=== PATIENT | female | born 1950 | race Caucasian/White ===

== ENCOUNTER 2017-08-28 06:49 | Day surgery (SDC) | payer MEDICARE, BC ==
[2017-08-27 12:42] VITALS: BMI 22.6
[2017-08-28 07:57] LABS: #Basophils 0.1 thou/uL (0.0-0.2); #Eosinphils 0.1 thou/uL (0.0-0.7); #Lymphocytes 1.3 thou/uL (1.20-3.40); #Monocytes 0.5 thou/uL (0.11-0.59); #Neutrophils 10.4 thou/uL (1.40-6.50); %Basophils 0.5 % (0.0-1.0); %Lymphocytes 10.3 % (21.0-51.0); %Monocytes 4.4 % (0.0-10.0); Hematocrit 28.1 % (36.0-47.0); White Blood Cell (WBC) Count 12.4 thou/uL (4.8-10.8)
[2017-08-28 08:10] LABS: Anion Gap 18 mmol/L (10-20); BUN (Urea Nitrogen) 54 mg/dL (9.8-20.1); Calc. Creatinine Clearance 5 mL/min (70-130); Calcium 9.6 mg/dL (7.8-10.44); Carbon Dioxide 29 mmol/L (23-31); Chloride 92 mmol/L (98-107); Estimated GFR-MDRD 4
[2017-08-28] MEDS ORDERED: Heparin 10,000 UNITS/1 ML VIAL ONE (08:35)
[2017-08-28] MEDS ORDERED: Bupivacaine/Epinephrine 0.25% 30 ML VIAL ONE (08:35)
[2017-08-28] MEDS ORDERED: Midazolam HCl 2 mg/2 ml Vial ONE ×2 (08:41)
[2017-08-28] MEDS ORDERED: Fentanyl 100 MCG/2 ML VIAL ONE (08:42)
[2017-08-28] MEDS ORDERED: Clindamycin/D5W 900 mg/50 ml Premix Bag ONE (08:51)
[2017-08-28] MEDS ORDERED: Levofloxacin 500 mg/D5W 100 ml Premix Bag ONE (08:51)
[2017-08-28] MEDS ORDERED: PHENYLEPHRINE-NS 100 MCG/ML 10 ML SYRINGE ONE (14:21)
[2017-08-28] MEDS ORDERED: Propofol 200 MG/20 ML VIAL ONE (14:21)
[2017-08-28] MEDS ORDERED: ePHEDrine/0.9% NaCl/PF SYRINGE 50 mg/10 ml ONE (14:21)
--- NOTE | 2017-08-30 12:25 | PDOC.OP ---
Operative Note - Operative Note Operative Note: PROCEDURE: Revision of peritoneal dialysis catheter DATE OF PROCEDURE: 08/28/2017 SURGEON: Ludmila Benoit M.D. PREOPERATIVE DIAGNOSES: Peritoneal dialysis catheter with extruded external cuff POSTOPERATIVE DIAGNOSIS: Peritoneal dialysis catheter with extruded external cuff HISTORY: Patient is a 67-year-old woman with end-stage renal failure who is dependent on peritoneal dialysis. She was noted to have extrusion of the external cuff of her catheter several months ago but her operation had to be deferred due to critical aortic stenosis. She has undergone transcatheter valve surgery and is now ready to undergo revision of the peritoneal dialysis catheter. PROCEDURE IN DETAIL: After informed consent was obtained and appropriate preoperative antibiotic administered the patient was taken to the operating room. She was placed in the supine position and general anesthesia was administered. She was prepped and draped in the standard sterile fashion excluding the external portion of the peritoneal dialysis catheter from the field and local anesthesia infused to the skin and subcutaneous tissues surrounding the internal portion of her catheter. A skin incision was made and dissection was carried down to the internal portion of the catheter which was dissected free circumferentially, clamped and divided. An extension kit with 2 cuffs was obtained and the external portion of the extension catheter tunneled laterally and then inferiorly, positioning the second cuff about a centimeter from the skin exit site. The extension catheter was spliced to the internal portion of the patient's pre-existing peritoneal dialysis catheter. The tract leading from the internal portion of the catheter to the original exit site of the peritoneal dialysis catheter was suture ligated and the subcutaneous space copiously irrigated. The subcutaneous tissues were reapproximated with 3-0 Monocryl suture and the skin incision was closed with 4-0 subcuticular Monocryl suture. Dermabond dressings were applied and allowed to dry following which the external portion of the extension catheter was dressed with Biopatch and Tegaderm. The original catheter was then removed and a gauze and Tegaderm dressing placed at that site. Estimated blood loss was minimal. There were no complications. There were no specimens.
== END 2017-08-28 12:13 | disposition home or self-care (01) ==
LOC: SDC 06:49
PROVIDERS: ATTEND Surgery
PROC: 0JWT33Z Revision of Infusion Device in Trunk Subcutaneous Tissue and Fascia, Percutaneous Approach (ICD-10-PCS; principal; 2017-08-28)
DX: T85.611A Breakdown (mechanical) of intraperitoneal dialysis catheter, initial encounter (principal); I13.2 Hypertensive heart and chronic kidney disease with heart failure and with stage 5 chronic kidney disease, or end stage renal disease; I50.9 Heart failure, unspecified; N18.6 End stage renal disease; J45.909 Unspecified asthma, uncomplicated; M19.90 Unspecified osteoarthritis, unspecified site; Z88.0 Allergy status to penicillin; Z88.5 Allergy status to narcotic agent; Z91.041 Radiographic dye allergy status; Z91.013 Allergy to seafood; Z90.49 Acquired absence of other specified parts of digestive tract; Z90.710 Acquired absence of both cervix and uterus; Z95.2 Presence of prosthetic heart valve; Z98.890 Other specified postprocedural states; Z99.2 Dependence on renal dialysis; Z82.49 Family history of ischemic heart disease and other diseases of the circulatory system
CPT/HCPCS: 36415; 80048; 85025; J1642; J1644; J1956; J2250; J2704; J3010; J3490

== ENCOUNTER 2017-11-09 23:05 | Inpatient (IN) | payer MEDICARE, BC ==
[2017-11-09 23:43] LABS: #Lymphocytes 0.7 thou/uL (1.20-3.40); #Monocytes 0.5 thou/uL (0.11-0.59); #Neutrophils 14.2 thou/uL (1.40-6.50); %Basophils 0.2 % (0.0-1.0); %Eosinophils 0.1 % (0.0-10.0); %Lymphocytes 4.4 % (21.0-51.0); %Neutrophils 92.4 % (42.0-75.0); Hemoglobin 9.9 g/dL (12.0-16.0); Mean Corpuscular HGB CONC 32.5 g/dL (32.0-36.0); Mean Corpuscular Hemoglobin 30.2 pg (27.0-31.0); Mean Corpuscular Volume 92.8 fl (81.0-99.0); Mean Platelet Volume 6.4 fL (7.4-10.4); Platelet Count 370 thou/uL (130-400); RBC Distribution Width 12.6 % (11.5-14.5); Red Blood Cell (RBC) Count 3.26 mill/uL (4.20-5.40); White Blood Cell (WBC) Count 15.3 thou/uL (4.8-10.8)
[2017-11-10] MEDS ORDERED: Acetaminophen 325 MG TAB PO PRN (00:03)
[2017-11-10] MEDS ORDERED: Ondansetron HCl/PF 4 MG/2 ML Vial IVP PRN (00:03)
[2017-11-10] MEDS ORDERED: Milk Of Magnesia 30 ML UDCUP PO PRN (00:03)
[2017-11-10 00:04] LABS: ALT (SGPT) 48 U/L (8-55); AST (SGOT) 35 U/L (5-34); Albumin 2.6 g/dL (3.4-4.8); Alkaline Phosphatase 96 U/L (40-150); Anion Gap 14 mmol/L (10-20); BUN (Urea Nitrogen) 24 mg/dL (9.8-20.1); Bilirubin, Total 0.2 mg/dL (0.2-1.2); Calc. Creatinine Clearance 0 mL/min (70-130); Calcium 8.6 mg/dL (7.8-10.44); Carbon Dioxide 28 mmol/L (23-31); Chloride 95 mmol/L (98-107); Estimated GFR-MDRD 7; Globulin 3.2 g/dL (2.4-3.5); Glucose 97 mg/dL (80-115); Magnesium 1.4 mg/dL (1.6-2.6); Potassium 3.1 mmol/L (3.5-5.1); Protein, Total 5.8 g/dL (6.0-8.3); Sodium 134 mmol/L (136-145)
[2017-11-10] MEDS ORDERED: Sodium Chloride 0.9% 1,000 ML IV SCH (00:15)
[2017-11-10] MEDS ORDERED: Potassium Chloride 30 MEQ in Sodium Chloride 0.9% 250 ML 250 ML IVPB SCH (00:30)
[2017-11-10] MEDS ORDERED: Magnesium Sulfate 2 GM/100 ML BAG ONE (00:47)
[2017-11-10] MEDS ORDERED: Magnesium Oxide 400 MG TAB PO SCH (01:15)
[2017-11-10 02:43] LABS: CKMB 1.7 ng/mL (0-6.6); Troponin I 0.197 ng/mL (< 0.028)
[2017-11-10 03:56] LABS: #Basophils 0.1 thou/uL (0.0-0.2); #Monocytes 0.7 thou/uL (0.11-0.59); #Neutrophils 14.6 thou/uL (1.40-6.50); %Basophils 0.3 % (0.0-1.0); %Eosinophils 0.1 % (0.0-10.0); %Lymphocytes 6.2 % (21.0-51.0); %Monocytes 4.2 % (0.0-10.0); %Neutrophils 89.2 % (42.0-75.0); Hemoglobin 9.6 g/dL (12.0-16.0); Mean Corpuscular HGB CONC 32.5 g/dL (32.0-36.0); Mean Corpuscular Hemoglobin 30.2 pg (27.0-31.0); Mean Corpuscular Volume 92.8 fl (81.0-99.0); Mean Platelet Volume 6.8 fL (7.4-10.4); Platelet Count 387 thou/uL (130-400); RBC Distribution Width 12.6 % (11.5-14.5); Red Blood Cell (RBC) Count 3.19 mill/uL (4.20-5.40); White Blood Cell (WBC) Count 16.4 thou/uL (4.8-10.8)
[2017-11-10 04:15] LABS: Anion Gap 13 mmol/L (10-20); BUN (Urea Nitrogen) 25 mg/dL (9.8-20.1); Calc. Creatinine Clearance 0 mL/min (70-130); Calcium 8.9 mg/dL (7.8-10.44); Carbon Dioxide 27 mmol/L (23-31); Chloride 96 mmol/L (98-107); Estimated GFR-MDRD 6; Glucose 92 mg/dL (80-115); Magnesium 2.1 mg/dL (1.6-2.6); Potassium 3.1 mmol/L (3.5-5.1); Sodium 133 mmol/L (136-145)
[2017-11-10] MEDS ORDERED: hydrALAZINE 20 MG/ML VIAL SLOW IVP PRN (05:19)
[2017-11-10] MEDS ORDERED: Labetalol HCl 100 MG/20 ML VIAL SLOW IVP PRN (05:22)
[2017-11-10 05:36] VITALS: BMI 22.1
[2017-11-10 05:58] LABS: Troponin I 0.179 ng/mL (< 0.028)
[2017-11-10] MEDS ORDERED: Potassium Chloride 40 MEQ in Sodium Chloride 0.9% 250 ML 250 ML IVPB SCH (06:00)
--- NOTE | 2017-11-10 06:00 | HP ---
PRIMARY CARE PHYSICIAN: Dr. Janes Sanchez at [facility]. PRESENTING COMPLAINT: Vomiting. HISTORY OF PRESENT ILLNESS: A 67-year-old female with a past medical history of hypertension, hyperl ipidemia, CAD, aortic valve replacement, status post pacemaker and end-stage renal disease on periton eal hemodialysis who presents to the emergency room with persistent nausea and vomiting for the past 5 days. She reports 10/10 epigastric pain as well, which does not radiate and is associated with vom iting - intermittent, occurs about 3 hours after eating with no clear aggravating or relieving factor s. There is no history of fevers or chills. No hematemesis. She has not had any unusual meals. No sick contacts. Her last bowel movement was several days ago. She reportedly has been taking stool softeners and was given some lactulose yesterday without relief. PAST MEDICAL HISTORY: Hypertension, hyperlipidemia, end-stage renal disease on peritoneal dialysis, AVR, CAD status post pacemaker. PAST SURGICAL HISTORY: Cholecystectomy, AVR, hysterectomy. FAMILY HISTORY: Reviewed, not contributory. SOCIAL HISTORY: Does not smoke cigarettes, drink alcohol or use illicit drugs. ALLERGIES: PENICILLIN, CODEINE, SHELLFISH. REVIEW OF SYSTEMS: Constitutional: Denies chills, fever. HEENT: Denies eye pain, changes in visio n, congestion. Cardiovascular: Negative. Respiratory: Negative. Gastrointestinal: Positive for abdominal pain, nausea, vomiting, and constipation. Negative for barb rrhea. Genitourinary: Negative. Musculoskeletal: Negative. Skin: Negative. Neurologic: Negati ve. Hematological/lymphatic: Negative. Allergy/immunologic: Negative. PHYSICAL EXAMINATION: VITAL SIGNS: Stable. GENERAL: In mild distress from pain. HEENT: Normocephalic, atraumatic. Not pale, anicteric. Dry mucous membranes. RESPIRATORY: Vesicular breath sounds bilaterally. No wheezes or rales. CARDIOVASCULAR: S1, S2 only, irregularly irregular rhythm, regular rate. No murmurs, rubs or gallop s. ABDOMEN: Positive epigastric and left upper quadrant pain, hypoactive bowel sounds. No masses palpa artis. MUSCULOSKELETAL: No abnormalities detected. SKIN: Warm, dry, well-perfused. No rashes or lesions. NEUROLOGIC: Alert, awake, oriented. No focal deficits. PSYCHIATRIC: Normal mood and affect. LABORATORY DATA: Significant labs include hypokalemia (3.1), elevated BUN/creatinine 24/6.28, hypoma gnesemia (1.4), elevated troponin (0.197), WBC 16.4, hemoglobin 9.6, platelet count 387. IMAGES: None. ASSESSMENT AND PLAN: Abdominal pain/vomiting/nausea/constipation. Patient's symptoms could be from peptic ulcer or could also be from an intestinal obstruction as she has been constipated for a while and bowel sounds are hypoactive on examination. She reportedly had a CT scan at [facility] showed obstruction. 1. Keep n.p.o. 2. IV Protonix 40 mg b.i.d. 3. We will obtain a KUB to rule out ileus versus obstruction. 4. We will hydrate gently. 5. GI consult for possible upper endoscopy. 6. Depending on KUB, consider getting General Surgery consult. 7. IV Zofran p.r.n. for nausea/vomiting. 8. Obtain CT abdomen reports done at [facility]. 9. Hypokalemia. 10. Hypomagnesemia. We will repeat electrolytes as necessary. 11. Hypertension. Blood pressure is currently at goal. We will gradually introduce home medication s once the patient can tolerate orally, p.r.n. hydralazine for systolic blood pressure greater than 1 80. 12. End-stage renal disease on peritoneal dialysis. We will obtain Nephrology consult. 13. Coronary artery disease status post pacemaker, monitor heart rates closely. She is currently ra te controlled. 14. Hyperlipidemia. We will resume home medications. 15. Hypovolemia. We will hydrate parenterally. This is likely from her multiple vomiting episodes. 16. Of note, on examination, she has a C-collar in place. This is due to a fall she had a week ago in which she says she sustained some fractures in her neck. 17. We will also trend troponin, although this elevation she had on presentation is likely due to he r renal failure. She is currently chest pain free and has no cardiac symptoms.
[2017-11-10] MEDS: Sodium Chloride 0.9% 1,000 ML IV SCH ×2 (06:11→22:00)
[2017-11-10] MEDS: Potassium Chloride 20 MEQ TAB PO SCH (08:59)
[2017-11-10] MEDS: Heparin 5,000 UNITS/ML VIAL SC SCH ×3 (09:03→20:30)
[2017-11-10] MEDS: Famotidine/PF 20 mg/2ml Vial SLOW IVP SCH (09:04)
[2017-11-10] MEDS: Pantoprazole 40 MG VIAL IVP SCH ×2 (09:04→20:35)
--- NOTE | 2017-11-10 10:24 | RAD ---
KUB: Date: 11/10/17 COMPARISON: None. HISTORY: Ileus versus small bowel obstruction. FINDINGS: Supine imaging is provided, limiting assessment for free intraperitoneal air and small bowel obstruct ion. No gas-filled dilated small bowel is seen. There is gas within the colon. Catheter tubing curls in the pelvis suggesting peritoneal dialysis catheter. Surgical clips in right upper quadrant suggest prior cholecystectomy. Incompletely imaged transvenous pacing device noted. IMPRESSION: No gas-filled dilated small bowel. If symptoms persist, upright and/or decubitus imaging advised. POS: [facility]
[2017-11-10] MEDS ORDERED: Epoetin (ESRD) 20,000 UNITS/ML SC SCH (11:00)
--- NOTE | 2017-11-10 11:18 | CON ---
DATE OF CONSULTATION: 11/10/2017 HISTORY OF PRESENT ILLNESS: Ms. Espino is a 67-year-old white female with known history of end-stage renal disease - on maintenance peritoneal dialysis and admitted for complaints of nausea and vomiting. She has had no bowel movement for 1 week. She has been tried on several laxatives without success. Due to the persistence of the constipation and associated nausea and vomiting, she was admitted for further evaluation. We are now being consulted for her maintenance peritoneal dialysis. REVIEW OF SYSTEMS: No chest pain, no abdominal pain. Positive for abdominal fullness. Denies any fever or chills. Positive for constipation x1 week. Positive for nausea and vomiting. No gross hematuria. No dysuria. Occasional joint pains. No syncopal episode. No productive cough. No hematochezia, no melena, no hematemesis. PAST MEDICAL HISTORY: Includes the followin. ESRD from presumed hypertensive nephropathy. 2. Aortic valve disease. 3. Hypertension. 4. Hyperlipidemia. 5. Coronary artery disease. PAST SURGICAL HISTORY: 1. Status post cholecystectomy. 2. Status post TAVR. 3. Status post hysterectomy. 4. Status post PD catheter placement. 5. Status post cuffed hemodialysis catheter placement. SOCIAL HISTORY: The patient lives in [place]. . Sedentary lifestyle. Education is high school. Currently, no history of smoking, no alcohol intake, no IV drug abuse. Status post blood transfusions. ALLERGIES: PENICILLIN AND CODEINE. TRAUMA: Status post fall with cervical neck fracture IMMUNIZATIONS: Up to date. HOSPITALIZATIONS: Please see past medical history. FAMILY HISTORY: No family history of ESRD. PHYSICAL EXAMINATION: VITAL SIGNS: Blood pressure is 133/72, heart rate 101, respiratory rate 16, temperature 98.3, pulse ox 93%. GENERAL: Noted to be awake, alert, comfortable, not in overt distress; + cervical neck brace/collar SKIN: Adequate turgor. HEENT: Slightly pale conjunctivae, anicteric sclerae. NECK: No neck mass, no carotid bruits, no JVD. CHEST: No deformities. LUNGS: Clear breath sounds. No wheezing, no crackles. HEART: Normal sinus rhythm. No murmur, no gallops, no rubs. ABDOMEN: Globular, soft, nontender, no masses. Positive for PD catheter. Decreased bowel sounds. EXTREMITIES: No edema, no deformities. MEDICATIONS: Medications of 11/10/2017 was reviewed. LABORATORY DATA: Laboratories of 11/10/2017, white count 16.4, hemoglobin 9.6. Sodium 133, potassium 3.1, chloride 96, carbon dioxide 27, BUN 25, creatinine 6.46, calcium 8.9, magnesium 2.1, troponin I 0.179. On 11/10/2017, KUB showed gas-filled dilated small bowel. Positive for PD catheter. ASSESSMENT AND PLAN: 1. Constipation - unresponsive to the oral laxatives. We will do a Fleet enema x1 with this patient. She tells me her PD fluid looks clear. I doubt she has peritonitis. Examination of the abdomen was relatively benign 2. End-stage renal disease, stable. We will be continuing her current continuous cycling peritoneal dialysis regimen. I did discuss with the dialysis nurses regarding her PD regimen. 3. Anemia. Start Epogen 7500 units subcutaneously every week. 4. Cervical neck fracture - conservative management - on cervical neck brace Recheck base met and CBC in a.m. MTDD
[2017-11-10] MEDS ORDERED: Fleet Enema 133 ML BOT FS SCH (12:15)
[2017-11-10] MEDS ORDERED: Metoprolol Tartrate 25 MG TAB PO SCH ×2 (12:45→21:00)
[2017-11-10] MEDS: Docusate 100 MG CAP PO SCH ×2 (13:00→20:28)
[2017-11-10] MEDS: Magnesium Oxide 400 MG TAB PO SCH ×2 (13:00→20:28)
--- NOTE | 2017-11-10 13:32 | PRG ---
DATE OF SERVICE: 11/10/2017 SUBJECTIVE: The patient is seen and examined at bedside. She complains about pain in her abdomen, w hich comes and goes without much nausea, no diarrhea, no any other issues. The pain is rated at 10 w hen it comes about, she says on a scale from 1-10. She is not vomiting. She is able to eat some caprice d, but later she feels like the food gets stuck in the mid portion of the abdomen, does want to go do wn any further. She took some lactulose yesterday. She took MiraLax the day before and she did not have any bowel movement so far. The last BM was on Saturday, which is 4 days ago. OBJECTIVE: VITAL SIGNS: Blood pressure is 144/59, pulse is 115, temperature is 98.5, respiratory rate is 16, O2 saturation 96% on room air. HEENT: Head is atraumatic, normocephalic. She wears her collar on her neck since she had some fall recently and a fracture. Eyes. Pupils are responding to light properly. Sclerae is nonicteric. Or al mucosa is slightly dry. LUNGS: Clear. HEART: S1, S2. Somewhat tachycardic. No S3, no S4. ABDOMEN: Soft, nontender. There is a peritoneal dialysis catheter in place. Bowel sounds somewhat high pitched. EXTREMITIES: No clubbing, cyanosis, or edema. NEUROLOGICAL EXAMINATION: She is alert and oriented x4. There is no any sensory or motor deficit. Cranial nerves are intact. LABORATORY DATA: Labs showed white count of 16.4, hemoglobin of 9.6, hematocrit 29.6, platelet count is 387, 89% of neutrophils. Sodium of 133, potassium 3.1, chloride 96, BUN 25, creatinine 6.46, mag nesium 2.1, troponin I elevated at 0.197 and 0.179. IMPRESSION: 1. Abdominal pain with constipation and some signs of possible, at least partial, bowel obstruction, although she had CT of the abdomen and pelvis done yesterday at [facility] in [facility] which did not show any obstruction, but this was not done with contrast. KUB was done, which s howed no gas-filled, dilated small bowel and gas within the colon. We will have GI, Dr. Spivey, to ev aluate her abdominal pain and obstruction. Despite of 2 different laxatives, she did not have any jefry wel movement in the last 4 days. Bilingual Teacher Aide just ordered a Fleet's enema, but we will wait until G I evaluation is done for further recommendations. 2. Chronic renal failure on peritoneal dialysis. 3. Hypokalemia. 4. Hyponatremia and hypochloremia. 5. Some elevation of 2 sets of troponins with normal CK-MB fraction, which is most likely related to her renal function issue. 6. Normocytic anemia, most likely secondary to chronic renal failure. 7. Hypomagnesemia, corrected. 8. Hypertension. We will restart her metoprolol 25 mg twice a day. For now, the rest of her home m edications will be on hold. 9. Coronary artery disease, status post a pacemaker 10. Hyperlipidemia. PLAN: As mentioned above. We will try some Fleets enema. We will obtain GI evaluation. We will st art her on metoprolol her home dose and we will continue IV hydration, n.p.o. except meds and potassi um replacement since she was hypokalemic. We will continue DVT prophylaxis with 5000 units of SCD donnelly bcutaneously 3 times a day.
[2017-11-10] MEDS: predniSONE 50 MG TAB PO SCH ×2 (17:15→21:57)
[2017-11-10] MEDS: Metoprolol Tartrate 25 MG TAB PO SCH (20:28)
[2017-11-10] MEDS: Senokot 8.6 MG TAB PO SCH (20:28)
[2017-11-10 21:03] LABS: Body Fluid Source PERITONEAL FLUID; Clarity Hazy (Clear)
[2017-11-10 21:04] LABS: BF Color White; RBC Background Count 0.003; RBC Count-Automated 160000 /cumm; Tube # EDTA; WBC/NonHematic-Auto 14700 /cumm
[2017-11-10 21:05] LABS: Fluid, Glucose 82 mg/dL (Not Available); Fluid, Protein Less than 1.0 g/dL (Not Available)
--- NOTE | 2017-11-10 21:49 | CON ---
DATE OF CONSULTATION: 11/10/2017 REASON FOR CONSULTATION: Nausea, vomiting, abdominal pain. CONSULTING PHYSICIAN: Tamia Qureshi MD HISTORY OF PRESENT ILLNESS: The patient is a 67-year-old female with past medical history of hyperte nsion, hyperlipidemia, coronary artery disease, aortic valve replacement, and end-stage renal disease on peritoneal dialysis, presenting with abdominal pain. She states that she was in her usual state of health until approximately 5 days ago when she began having mid epigastric/left upper quadrant abd ominal pain characterized as pressure/punching type pain severity of 10/10 that was constant with wax ing and waning severity, worse. There were no clear exacerbating factors, but was better with lying down at least transiently. During the same time, she also endorsed having increased constipation, mckenzie ving 1-2 solid bowel movements per day, but having significant straining in order to defecate. This pain progressively worsened over the next few days and to the point where she started having nausea a nd vomiting that was intermittent and not necessarily coinciding with her abdominal pain. Her nausea and vomiting would occur approximately 3 hours after eating and her vomitus would contain the entire ty of her meal that she had eaten 3 hours prior. Of note, she has never been diagnosed with gastroparesis in the past. She also had been trialed give n MiraLax one dose as an outpatient for her constipation and lactulose 1 dose as an outpatient with m inimal results and increased abdominal pain after the administration of lactulose. Currently, she de nies any nausea, vomiting, fevers, chills, shortness of breath, odynophagia, dysphagia or GI bleeding . REVIEW OF SYSTEMS: Ten-category review of systems was obtained with all responses negative except fo r the pertinent positives as listed in the HPI. PAST MEDICAL HISTORY: As per HPI. PAST SURGICAL HISTORY: Hysterectomy, aortic valve repair and cholecystectomy. FAMILY HISTORY: No GI malignancies. SOCIAL HISTORY: Denies any tobacco, alcohol or illicit drug use. OUTPATIENT MEDICATIONS: Reviewed. ALLERGIES: PENICILLIN, CODEINE, SHELLFISH. PHYSICAL EXAMINATION: VITAL SIGNS: Temperature of 98.5, pulse 110, blood pressure 110/72, respiratory rate 16, satting 96% on room air. GENERAL: The patient is lying in bed in no acute distress. Alert and oriented x4. Cervical collar in place with minimal movement of her neck. NECK: JVD could not be assessed due to the presence of the cervical collar. CARDIOVASCULAR: Tachycardic rate with regular rhythm. No discernible murmurs, gallops or rubs. RESPIRATORY: Clear to auscultation bilaterally with no discernible wheezes or rales. ABDOMEN: Normoactive bowel sounds, soft, mild distention. MUSCULOSKELETAL: Tenderness to palpation in all abdominal quadrants. LABORATORY DATA: CBC with a white blood cell count of 16.4, hemoglobin 9.6, hematocrit 29.6, and sonal telets 389. Chemistry with a sodium of 133, potassium 3.1, chloride 96, CO2 of 27, BUN 25, creatinin e 6.46, glucose 92, AST 35, ALT 48, alkaline phosphatase 96, total bilirubin 0.2. IMAGING DATA: Abdominal x-ray obtained on 11/10/2017 showed no gas-filled dilated small bowel or maxime e intraperitoneal air. Catheter tubing curls were seen in the pelvis is suggesting peritoneal dialys is catheter as well as surgical clips in the right upper quadrant suggesting prior cholecystectomy. ASSESSMENT AND PLAN: The patient is a 67-year-old female with past medical history of hypertension, hyperlipidemia, coronary artery disease, aortic valve replacement, and end-stage renal disease on per itoneal dialysis, presenting with abdominal pain. Abdominal pain: The patient is presenting with acute onset of mid epigastric/left upper quadrant abd ominal pain that was pressure-like in nature and constant with waxing and waning severity. This was also associated with constipation, having 1-2 solid bowel movements per day with increased straining in order to defecate; however, upon interview with the patient, she denies any relief of symptoms wit h laxative administration and having a bowel movement. She also endorsed intermittent nausea and vom iting during the same time. That does not seem to be related to her abdominal pain, but when she did vomit, was vomiting most of the material that she had ingested earlier (approximately 3 hours prior) . At this time, the etiology of her abdominal pain is unknown, but given her elevated white blood ce ll count is concerning for infection. With her prior history of end-stage renal disease with periton eal dialysis, this is a likely source of possible infection that could generate generalized abdominal pain also seen on physical exam also within the differential could be gastroparesis (idiopathic), co nstipation or ileus. RECOMMENDATIONS: 1. We would obtain sample of the peritoneal dialysis fluid via her catheter for evaluation of possib le infection. 2. We would obtain a CT abdomen and pelvis looking for any additional intra-abdominal pathology that may contribute to her abdominal pain. 3. With the possible infectious etiology causing her abdominal pain, I would have a low threshold fo r antibiotic administration. 4. We will change the patient from lactulose to MiraLax as part of her bowel regimen as lactulose ca n be very gas forming and contribute to further abdominal pain. 5. If all the above is negative, we would then consider nuclear emptying study for possible gastropa resis. We will continue to follow. Please call with any questions.
[2017-11-10 22:05] LABS: BF Segmented Neutrophils 86 %; Cell Count Non Hematic 11 %; Lymphocytes 3 %
[2017-11-10] MEDS ORDERED: Vancomycin HCl 1.25 GM in Sodium Chloride 0.9% 250 ML 250 ML IVPB SCH (23:30)
[2017-11-11] MEDS ORDERED: HOLD VANCOMYCIN FOR LEVEL >20 FS PRN (03:06)
[2017-11-11] MEDS ORDERED: diphenhydrAMINE 50 MG CAP PO SCH (04:00)
[2017-11-11] MEDS: predniSONE 50 MG TAB PO SCH (04:02)
[2017-11-11 04:54] LABS: #Lymphocytes 0.4 thou/uL (1.20-3.40); #Monocytes 0.1 thou/uL (0.11-0.59); #Neutrophils 5.3 thou/uL (1.40-6.50); %Basophils 0.2 % (0.0-1.0); %Eosinophils 0.1 % (0.0-10.0); %Lymphocytes 6.2 % (21.0-51.0); %Monocytes 1.8 % (0.0-10.0); %Neutrophils 91.7 % (42.0-75.0); Hemoglobin 9.8 g/dL (12.0-16.0); Mean Corpuscular HGB CONC 32.3 g/dL (32.0-36.0); Mean Corpuscular Hemoglobin 30.1 pg (27.0-31.0); Mean Corpuscular Volume 93.4 fl (81.0-99.0); Platelet Count 404 thou/uL (130-400); RBC Distribution Width 12.9 % (11.5-14.5); Red Blood Cell (RBC) Count 3.24 mill/uL (4.20-5.40); White Blood Cell (WBC) Count 5.8 thou/uL (4.8-10.8)
[2017-11-11 05:08] LABS: Anion Gap 15 mmol/L (10-20); BUN (Urea Nitrogen) 32 mg/dL (9.8-20.1); Calc. Creatinine Clearance 8 mL/min (70-130); Carbon Dioxide 24 mmol/L (23-31); Chloride 97 mmol/L (98-107); Estimated GFR-MDRD 6; Glucose 193 mg/dL (80-115); Sodium 133 mmol/L (136-145)
[2017-11-11] MEDS ORDERED: Vancomycin HCl 750 MG in Sodium Chloride 0.9% 250 ML 250 ML IVPB SCH (09:00)
[2017-11-11] MEDS ORDERED: Vancomycin HCl 1 GM in Premix Bag 1 BAG IVPB SCH (09:00)
[2017-11-11] MEDS ORDERED: Vancomycin HCl 500 MG in Sodium Chloride 0.9% 100 ML IVPB SCH (09:00)
[2017-11-11] MEDS ORDERED: Vancomycin HCl 1.25 GM in Sodium Chloride 0.9% 250 ML 250 ML IVPB SCH (09:00)
--- NOTE | 2017-11-11 09:17 | PRG ---
DATE OF SERVICE: 11/11/2017 RENAL MEDICINE SUBJECTIVE: Ms. Espino was admitted for constipation, nausea and vomiting. KUB showed no evidence of impacted stool or evidence of obstruction per se. She has some air in the small bowels. GI consult has been done. The concern is that patient may not be able to undergo upper GI endoscopy due to her cervical neck collar. A CT scan of the abdomen has been ordered. We are following up this patient for her peritoneal dialysis where she is undergoing CCPD at the present time. No other new complaint s. She is feeling better. She is still currently on n.p.o. Positive for cervical collar. PHYSICAL EXAMINATION: VITAL SIGNS: Blood pressure is 139/72, heart rate 84, respiratory rate 18, temperature 97.6, pulse o ximetry 100%. GENERAL: Awake, alert, supine, comfortable, not in overt distress. SKIN: Adequate turgor. HEENT: She has slightly pale conjunctivae, anicteric sclerae. NECK: No neck mass, no carotid bruits, no JVD. CHEST: No deformities. LUNGS: Clear breath sounds. No wheezing, no crackles. HEART: Normal sinus rhythm. No murmur, no gallops, no rubs. ABDOMEN: Globular, soft, nontender. EXTREMITIES: No edema or deformities. MEDICATIONS: Medications of 11/11/2017 was reviewed. LABORATORY DATA: Laboratories of 11/11/2017; white count 5.8, hemoglobin 9.8. Sodium 133, potassium 3, chloride 97, carbon dioxide 24, BUN 32, creatinine 6.56, glucose 193, and calcium 9.0. ASSESSMENT AND PLAN: 1. Mild hyperkalemia, p.r.n. potassium supplementation. 2. Borderline anemia - currently on Epogen - weekly regimen. 3. End-stage renal disease, stable. Tolerating current continuous cycling peritoneal dialysis regim en. No changes to be made. 4. Nausea, vomiting/constipation - GI evaluating. CAT scan of the abdomen and pelvis has been order ed. 5. The patient has had no bowel movement for the last 1 week. We will recheck basic metabolic panel and CBC in a.m.
--- NOTE | 2017-11-11 10:04 | CT ---
CT ABDOMEN AND PELVIS WITH IV CONTRAST: DATE: 11/11/17. HISTORY: Abdominal pain and leukocytosis. The patient is on peritoneal dialysis. COMPARISON: None available. FINDINGS: There is a small left and tiny right pleural effusions with associated passive atelectasis. Partial visualization of cardiac pace making leads within the right atrial appendage and right ventricle. Vascular calcifications are seen in the abdominal aorta and in the iliac arteries. There is a small to moderate amount of intraperitoneal free fluid within the abdomen and pelvis. Per itoneal dialysis catheter is noted in place entering the left upper pelvis to the left of midline dis rambo portion within the lower pelvis. Post cholecystectomy changes are noted. The kidneys are atrophied bilaterally with renal cortical thinning. There are innumerable hypodense bilateral renal lesions, the majority of which are too small to further characterize. There is a lar pietro exophytic hypodense lesion mid portion left kidney which measures 2.6 cm and does demonstrate flu id attenuation consistent with a cyst. An obvious enhancing lesion is not appreciated. The liver, spleen, pancreas, and bilateral adrenal glands demonstrate a normal CT appearance. Urinary bladder is incompletely distended and not well evaluated on his exam. Opacified loops of small bowel have a nonspecific appearance. No defined fluid collection is seen to suggest abscess. Calcification is seen adjacent to the liver in the right upper quadrant. Mild degenerative changes are seen in the spine. IMPRESSION: 1. Small bilateral pleural effusions with a small to moderate amount of ascites. 2. Peritoneal hemodialysis catheter is noted in place. 3. Bilateral renal atrophy and renal cortical thinning with multiple subcentimeter too small to alexis acterize hypodense lesions in each kidney with a larger hypodense lesion compatible with cyst involvi ng the right kidney. 4. Cholecystectomy. 5. Vascular calcifications. POS: [facility]
[2017-11-11] MEDS: Heparin 5,000 UNITS/ML VIAL SC SCH ×2 (10:10→16:37)
[2017-11-11] MEDS: Polyethylene Glycol 3350 17 GM Packet PO SCH (10:10)
[2017-11-11] MEDS: Pantoprazole 40 MG VIAL IVP SCH ×2 (10:10→21:11)
[2017-11-11] MEDS: Famotidine/PF 20 mg/2ml Vial SLOW IVP SCH (10:10)
[2017-11-11] MEDS: Potassium Chloride 20 MEQ TAB PO SCH (10:11)
[2017-11-11] MEDS: Metoprolol Tartrate 25 MG TAB PO SCH ×2 (10:12→21:12)
[2017-11-11] MEDS: Docusate 100 MG CAP PO SCH (10:12)
[2017-11-11] MEDS: Magnesium Oxide 400 MG TAB PO SCH ×2 (10:12→21:11)
[2017-11-11] MEDS: Ciprofloxacin Lactate/D5W 200 MG in Premix Bag 1 BAG IVPB SCH ×2 (11:14→21:10)
[2017-11-11] MEDS: Sodium Chloride 0.9% 1,000 ML IV SCH (14:40)
[2017-11-11] MEDS ORDERED: Ondansetron HCl/PF 4 MG/2 ML Vial SLOW IVP SCH (15:45)
--- NOTE | 2017-11-11 18:27 | PDOC.PN ---
- Subjective Encounter Start Date: 11/11/17 Encounter Start Time: 10:30 Patient seen and examined. Abd pain 2/10 from 02/23 last night. Some nausea. No overnight events - Objective MAR Reviewed: Yes Vital Signs & Weight: Vital Signs (12 hours) Temp Pulse Resp BP BP Pulse Ox 11/11/17 17:48 97.9 F 115 H 20 128/69 97 11/11/17 15:59 97.6 F 111 H 18 146/81 H 100 11/11/17 11:15 97.6 F 78 24 H 144/65 H 98 Result Diagrams: 11/11/17 04:24 11/11/17 04:24 Phys Exam - Physical Examination Constitutional: NAD Respiratory: no wheezing, no rhonchi Cardiovascular: RRR, no rub Gastrointestinal: soft, positive bowel sounds mild gen tenderness Musculoskeletal: no edema Neurological: moves all 4 limbs Dx/Plan - Plan DVT proph w/heparin, DVT proph w/SCDs IMPRESSION: 1. Peritoneal dialysis catheter associated Peritonitis 2. Abd pain/Constipation - on Miralax 3. Electrolyte abn 4. ESRD on PD 5. Other issues per previous notes PLAN: * Cont Vancomycin and Cipro * GI/Nephro following * Cont to monitor * AM labs * Replace electrolytes * Cont current meds as below * Walking program * Add Dulcolax supp QAM * Change Colace to Sen S Review of Systems - Review of Systems Respiratory: negative: Cough, Dry, Shortness of Breath, Hemoptysis, SOB with Excertion, Pleuritic Pain, Sputum, Wheezing Cardiovascular: negative: chest pain, palpitations, orthopnea, paroxysmal nocturnal dyspnea, edema, light headedness - Medications/Allergies Allergies/Adverse Reactions: Allergies Allergy/AdvReac Type Severity Reaction Status Date / Time codeine Allergy Verified 08/27/17 12:43 iodine Allergy Verified 08/27/17 12:43 Penicillins Allergy Verified 08/27/17 12:43 shellfish derived Allergy Verified 08/27/17 12:43 Medications: Current Medications Acetaminophen (Tylenol) 650 mg PO Q4H PRN PRN Reason: Headache/Fever or Pain Last Admin: 11/10/17 20:27 Dose: 650 mg Docusate Sodium (Colace) 100 mg PO BID [facility] Last Admin: 11/11/17 10:12 Dose: 100 mg Epoetin Alejo (Procrit) 7,500 units SC Q7D@1100 [facility] Last Admin: 11/10/17 16:27 Dose: 7,500 units Hydralazine HCl (Apresoline) 10 mg SLOW IVP Q4H PRN PRN Reason: Hypertension Sodium Chloride (Normal Saline 0.9%) 1,000 mls @ 75 mls/hr IV .[id number] [facility] Last Admin: 11/11/17 14:40 Dose: 1,000 mls Ciprofloxacin/Dextrose 200 mg/ (Device) 100 mls @ 100 mls/hr IVPB Q12HR [facility] Last Admin: 11/11/17 11:14 Dose: 100 mls Vancomycin HCl 1.25 gm/ Sodium (Chloride) 250 mls @ 166.667 mls/hr IVPB WILLCALL [facility] Vancomycin HCl 1 gm/ Device 200 mls @ 200 mls/hr IVPB [facility] Vancomycin HCl 750 mg/ Sodium (Chloride) 250 mls @ 250 mls/hr IVPB [facility] Vancomycin HCl 500 mg/ Sodium (Chloride) 100 mls @ 100 mls/hr IVPB [facility] Labetalol HCl (Normodyne) 10 mg SLOW IVP Q4H PRN PRN Reason: SBP Greater Than 180 Magnesium Hydroxide (Milk Of Magnesium) 30 ml PO DAILYPRN PRN PRN Reason: Constipation Magnesium Oxide (Magnesium Oxide) 400 mg PO BID [facility] Last Admin: 11/11/17 10:12 Dose: 400 mg Metoprolol Tartrate (Lopressor) 25 mg PO BID [facility] Last Admin: 11/11/17 10:12 Dose: 25 mg Miscellaneous Medication (Pharmacy To Dose) 1 each IVPB PRN PRN PRN Reason: Pharmacy to dose Hold Vancomycin For (Level >20) 0 each FS ASDIR PRN PRN Reason: HOLD VANCOMYCIN IF LEVEL > 20 Ondansetron HCl (Zofran) 4 mg IVP Q6H PRN PRN Reason: Nausea/Vomiting Pantoprazole Sodium (Protonix) 40 mg IVP Q12HR [facility] Last Admin: 11/11/17 10:10 Dose: 40 mg Polyethylene Glycol (Miralax) 17 gm PO DAILY [facility] Last Admin: 11/11/17 10:10 Dose: 17 gm Potassium Chloride (K-Dur) 40 meq PO QA-[facility] Stop: 11/13/17 08:01 Last Admin: 11/11/17 10:11 Dose: 40 meq Senna (Senokot) 2 tab PO HS [facility] Last Admin: 11/10/17 20:28 Dose: 2 tab Sodium Chloride (Flush - Normal Saline) 10 ml IVF Q12HR [facility] Last Admin: 11/11/17 10:13 Dose: Not Given Sodium Chloride (Flush - Normal Saline) 10 ml IVF PRN PRN PRN Reason: Saline Flush
[2017-11-11] MEDS ORDERED: traMADol HCl 50 MG TAB PO PRN (18:29)
[2017-11-11] MEDS ORDERED: Bisacodyl 10 MG SUPP PR SCH (18:30)
[2017-11-11] MEDS: Senokot 8.6 MG TAB PO SCH (21:00)
[2017-11-11] MEDS: Senokot S 8.6-50 MG TAB PO SCH (21:11)
[2017-11-11] MEDS: Cinacalcet HCl 30 MG TAB PO SCH (21:11)
[2017-11-12] MEDS: Sodium Chloride 0.9% 1,000 ML IV SCH ×2 (04:00→13:15)
[2017-11-12 05:02] LABS: #Lymphocytes 0.5 thou/uL (1.20-3.40); #Monocytes 0.6 thou/uL (0.11-0.59); #Neutrophils 16.2 thou/uL (1.40-6.50); %Basophils 0.3 % (0.0-1.0); %Lymphocytes 2.8 % (21.0-51.0); %Monocytes 3.7 % (0.0-10.0); %Neutrophils 93.3 % (42.0-75.0); Hemoglobin 9.6 g/dL (12.0-16.0); Mean Corpuscular HGB CONC 30.8 g/dL (32.0-36.0); Mean Corpuscular Hemoglobin 29.1 pg (27.0-31.0); Mean Corpuscular Volume 94.4 fl (81.0-99.0); Mean Platelet Volume 7.2 fL (7.4-10.4); Platelet Count 401 thou/uL (130-400); RBC Distribution Width 13.1 % (11.5-14.5); White Blood Cell (WBC) Count 17.4 thou/uL (4.8-10.8)
[2017-11-12 05:23] LABS: Anion Gap 16 mmol/L (10-20); BUN (Urea Nitrogen) 30 mg/dL (9.8-20.1); Calc. Creatinine Clearance 10 mL/min (70-130); Calcium 8.9 mg/dL (7.8-10.44); Carbon Dioxide 21 mmol/L (23-31); Chloride 96 mmol/L (98-107); Estimated GFR-MDRD 7; Glucose 142 mg/dL (80-115); Potassium 3.2 mmol/L (3.5-5.1); Sodium 130 mmol/L (136-145)
--- NOTE | 2017-11-12 06:56 | PRG ---
DATE OF SERVICE: 11/11/2017 REASON FOR CONSULTATION: Abdominal pain. SUBJECTIVE: The patient states that her abdominal pain is much improved this morning with her curren t severity being approximately 2/10. She further denies any nausea, vomiting, fevers, chills, shortn ess of breath, odynophagia, or dysphagia; however, she has not had a bowel movement since she has bee n admitted to the hospital and per her and her spouse's recount has not had a bowel movement for a co uple of days prior to admission as well. OBJECTIVE: VITAL SIGNS: Temperature 97.9, pulse 78, blood pressure 144/65, respiratory rate 24, satting 98% on room air. GENERAL: The patient lying in bed, in no acute distress. CARDIOVASCULAR: Regular rate and rhythm with no discernible murmurs, gallops, or rubs. RESPIRATORY: Clear to auscultation bilaterally with no discernible wheezes or rales. ABDOMEN: Normoactive bowel sounds, soft, mild distention. Tenderness to palpation in all abdominal quadrants, but improved from physical exam yesterday. LABORATORY DATA: CBC with white blood cell count of 5.8, hemoglobin 9.8, hematocrit 30.3, platelets 404,000. Chemistry with sodium of 133, potassium 3.0, chloride 97, CO2 of 24, BUN 32, creatinine 6.5 6, glucose 193. Peritoneal dialysis fluid yielded 14,700 white blood cells with 86% PMNs. Microbiol ogy of the peritoneal dialysate fluid yielded few gram positive cocci in pairs. ASSESSMENT AND PLAN: The patient is a 67-year-old female with past medical history of hypertension, hyperlipidemia, coronary artery disease, aortic valve replacement, and end-stage renal disease on per itoneal dialysis, presenting with abdominal pain. Abdominal pain: The patient is initially presented with acute onset of mid epigastric/left upper lowell drant abdominal pain that was associated with decrease in bowel movements and constipation, having 1- 2 bowel movements per day, but has not had any bowel movement since admission. She also endorsed int ermittent nausea and vomiting during the same time prior to admission, but this has dissipated since over the last 24-48 hours. At this time, given the elevated white blood cell count with neutrophilic predominance within the dialysate fluid and Gram stain showing gram-positive cocci in pairs, infecti on of her peritoneal dialysate fluid is likely with resulting peritonitis as evidenced on physical ex am today. CT of abdomen and pelvis did not reflect any signs of small bowel or colonic perforation r eveal any significant other abnormalities that would contribute to her current abdominal pain. RECOMMENDATIONS: 1. We would continue to treat with antibiotics for peritonitis associated with gram positive cocci i n pairs within the peritoneal dialysis fluid. Intravenous vancomycin has been shown to be very effec tive in these types of situations. 2. We would continue MiraLax daily as part of her bowel regimen for possible bowel movement. If she does not have a bowel movement within the next 24 hours, we would consider a tap water enema to faci litate having a bowel movement.
[2017-11-12] MEDS: Potassium Chloride 20 MEQ TAB PO SCH (08:15)
[2017-11-12] MEDS: Sevelamer Carbonate 800 MG TAB PO SCH ×3 (08:16→17:06)
[2017-11-12] MEDS: Aspirin 81 mg Enteric Coated Tablet PO SCH (08:16)
[2017-11-12] MEDS: Clopidogrel Bisulfate 75 MG TAB PO SCH (08:17)
[2017-11-12] MEDS: Senokot S 8.6-50 MG TAB PO SCH ×2 (08:17→21:03)
[2017-11-12] MEDS: Magnesium Oxide 400 MG TAB PO SCH (08:17)
[2017-11-12] MEDS: Metoprolol Tartrate 25 MG TAB PO SCH ×2 (08:17→21:03)
[2017-11-12] MEDS: Pantoprazole 40 MG VIAL IVP SCH ×2 (08:18→21:03)
[2017-11-12] MEDS: Polyethylene Glycol 3350 17 GM Packet PO SCH (08:19)
[2017-11-12] MEDS: Ciprofloxacin Lactate/D5W 200 MG in Premix Bag 1 BAG IVPB SCH ×2 (08:31→21:01)
[2017-11-12 08:46] LABS: Vancomycin, Random 15.4 ug/mL (See Comment)
--- NOTE | 2017-11-12 09:55 | PRG ---
DATE OF SERVICE: 11/12/2017 SUBJECTIVE: Ms. Espino is a 67-year-old white female with ESRD and admitted for severe constipation w ith associated nausea and vomiting. We are following her up for her maintenance peritoneal dialysis. She was diagnosed to have peritonitis. She had gram positive cocci and is currently being treated with IV vancomycin. We are following her up with her peritoneal dialysis regimen. Doing well with t he peritoneal dialysis. No new complaints. She had a small bowel movement today. PHYSICAL EXAMINATION: VITAL SIGNS: Blood pressure is 137/76, heart rate 84, respiratory rate 16, temperature 97.7, pulse o x 97%. GENERAL: Awake, alert, supine, comfortable, not in distress. SKIN: Adequate turgor. HEENT: She has slightly pale conjunctivae, anicteric sclerae. NECK: No neck mass, no carotid bruits, no JVD. CHEST: No deformities. LUNGS: Clear breath sounds. No wheezing, no crackles. HEART: Normal sinus rhythm. Grade 2/6 systolic murmur. No gallops or rubs. ABDOMEN: Globular, soft, nontender, no masses. Positive for PD catheter. EXTREMITIES: No edema. MEDICATIONS: 11/12/2017 - Reviewed. LABORATORY: 11/12/2017 - White count 17.4, hemoglobin 9.6. Sodium 130, potassium 3.2, chloride 96, carbon dioxide 21, BUN 30, creatinine 5.78, glucose 142, calcium 8.9, vancomycin level is 15.4. ASSESSMENT AND PLAN: 1. Gram positive cocci peritonitis - currently on IV vancomycin. Adjust vancomycin as needed. 2. End-stage renal disease, stable. Tolerating current peritoneal dialysis. No changes will be lynette n will be made with the current peritoneal dialysis regimen. 3. Anemia, continuing weekly Epogen. 4. Severe constipation - small bowel movement was noted today. GI following. We will recheck basic metabolic panel and CBC and vancomycin level in a.m.
--- NOTE | 2017-11-12 16:34 | PDOC.PN ---
- Subjective Encounter Start Date: 11/12/17 Encounter Start Time: 10:30 Patient seen and examined. Nausea +. Unable to tolerate liqds. Had small BM yesterday. No overnight events. Abd pain improving. - Objective MAR Reviewed: Yes Vital Signs & Weight: Vital Signs (12 hours) Temp Pulse Resp BP Pulse Ox 11/12/17 11:08 98.1 F 84 22 H 130/80 100 11/12/17 08:00 97.7 F 84 16 97 11/12/17 07:00 97.7 F 84 16 137/76 Weight Weight 147 lb 5 oz Result Diagrams: 11/12/17 04:51 11/12/17 04:51 Phys Exam - Physical Examination Constitutional: NAD Respiratory: no wheezing, no rhonchi Cardiovascular: RRR, no rub Gastrointestinal: soft, positive bowel sounds mild gen tenderness Musculoskeletal: no edema Neurological: moves all 4 limbs Dx/Plan - Plan out of bed/ambulate, DVT proph w/SCDs IMPRESSION: 1. Peritoneal dialysis catheter associated Peritonitis - CN Staph 2. Abd pain/Constipation - on Miralax/Sen - S 3. Electrolyte abn - Hypokalemia/Hypomagnesemia 4. ESRD on PD 5. Other issues per previous notes PLAN: * on Vancomycin and Cipro * Monitor Vancomycin levels * GI/Nephro following * Cont to monitor * AM labs * Replace Potassium * Cont current meds as below * Cont walking program Microbiology 11/10/17 20:24 Dialysate Fluid Culture Body Fluid Culture - Preliminary Coagulase Neg Staphylococcus Review of Systems - Review of Systems Respiratory: negative: Cough, Dry, Shortness of Breath, Hemoptysis, SOB with Excertion, Pleuritic Pain, Sputum, Wheezing Cardiovascular: negative: chest pain, palpitations, orthopnea, paroxysmal nocturnal dyspnea, edema, light headedness - Medications/Allergies Allergies/Adverse Reactions: Allergies Allergy/AdvReac Type Severity Reaction Status Date / Time codeine Allergy Verified 08/27/17 12:43 iodine Allergy Verified 08/27/17 12:43 Penicillins Allergy Verified 08/27/17 12:43 shellfish derived Allergy Verified 08/27/17 12:43 Medications: Current Medications Acetaminophen (Tylenol) 650 mg PO Q4H PRN PRN Reason: Headache/Fever or Pain Last Admin: 11/10/17 20:27 Dose: 650 mg Aspirin (Ecotrin) 81 mg PO DAILY [facility] Last Admin: 11/12/17 08:16 Dose: 81 mg Bisacodyl (Dulcolax) 10 mg ID DAILYPRN [facility] Cinacalcet (Sensipar) 60 mg PO HS [facility] Last Admin: 11/11/17 21:11 Dose: 60 mg Clopidogrel Bisulfate (Plavix) 75 mg PO DAILY [facility] Last Admin: 11/12/17 08:17 Dose: Not Given Epoetin Alejo (Procrit) 7,500 units SC Q7D@1100 [facility] Last Admin: 11/10/17 16:27 Dose: 7,500 units Hydralazine HCl (Apresoline) 10 mg SLOW IVP Q4H PRN PRN Reason: Hypertension Ciprofloxacin/Dextrose 200 mg/ (Device) 100 mls @ 100 mls/hr IVPB Q12HR [facility] Last Admin: 11/12/17 08:31 Dose: 100 mls Vancomycin HCl 1.25 gm/ Sodium (Chloride) 250 mls @ 166.667 mls/hr IVPB [facility] Vancomycin HCl 1 gm/ Device 200 mls @ 200 mls/hr IVPB [facility] Vancomycin HCl 750 mg/ Sodium (Chloride) 250 mls @ 250 mls/hr IVPB [facility] Vancomycin HCl 500 mg/ Sodium (Chloride) 100 mls @ 100 mls/hr IVPB [facility] Sodium Chloride (Normal Saline 0.9%) 1,000 mls @ 50 mls/hr IV .Q20H [facility] Last Admin: 11/12/17 13:15 Dose: Not Given Labetalol HCl (Normodyne) 10 mg SLOW IVP Q4H PRN PRN Reason: SBP Greater Than 180 Magnesium Hydroxide (Milk Of Magnesium) 30 ml PO DAILYPRN PRN PRN Reason: Constipation Metoprolol Tartrate (Lopressor) 25 mg PO BID [facility] Last Admin: 11/12/17 08:17 Dose: 25 mg Miscellaneous Medication (Pharmacy To Dose) 1 each IVPB PRN PRN PRN Reason: Pharmacy to dose Hold Vancomycin For (Level >20) 0 each FS ASDIR PRN PRN Reason: HOLD VANCOMYCIN IF LEVEL > 20 Ondansetron HCl (Zofran) 4 mg IVP Q6H PRN PRN Reason: Nausea/Vomiting Pantoprazole Sodium (Protonix) 40 mg IVP Q12HR [facility] Last Admin: 11/12/17 08:18 Dose: 40 mg Polyethylene Glycol (Miralax) 17 gm PO DAILY [facility] Last Admin: 11/12/17 08:19 Dose: Not Given Potassium Chloride (K-Dur) 40 meq PO QAM-WM [facility] Stop: 11/13/17 08:01 Last Admin: 11/12/17 08:15 Dose: 40 meq Senna (Senokot) 2 tab PO HS [facility] Last Admin: 11/11/17 21:00 Dose: Not Given Senna/Docusate Sodium (Senokot S) 1 tab PO BID [facility] Last Admin: 11/12/17 08:17 Dose: Not Given Sevelamer Carbonate (Renvela) 2,400 mg PO TID-[facility] Last Admin: 11/12/17 11:09 Dose: Not Given Sodium Chloride (Flush - Normal Saline) 10 ml IVF Q12HR [facility] Last Admin: 11/12/17 08:19 Dose: 10 ml Sodium Chloride (Flush - Normal Saline) 10 ml IVF PRN PRN PRN Reason: Saline Flush Tramadol HCl (Ultram) 50 mg PO Q6H PRN PRN Reason: Pain
[2017-11-12] MEDS: Cinacalcet HCl 30 MG TAB PO SCH (21:03)
[2017-11-12] MEDS: Senokot 8.6 MG TAB PO SCH (21:04)
--- NOTE | 2017-11-12 21:05 | PRG ---
DATE OF SERVICE: 11/12/2017 REASON FOR CONSULTATION: Abdominal pain. SUBJECTIVE: The patient states that her abdominal pain is improving, but did have increased abdomina l pain after eating food last night; approximately 3 hours after she ate broth and jello. She had th e acute worsening of her abdominal pain, nausea, and vomiting. However, during this time, she also d id have a small bowel movement. Currently, she states that she is doing much better with no complain ts of abdominal pain. Currently denies any nausea, vomiting, fevers, chills, shortness of breath, od ynophagia or dysphagia. OBJECTIVE: VITAL SIGNS: Temperature of 97.5, pulse 83, blood pressure 150/81, pulse 83, respiratory rate 16, sa tting 100% on room air. GENERAL: The patient is lying in bed in no acute distress. CARDIOVASCULAR: Regular rate and rhythm with no discernible murmurs, gallops or rubs. RESPIRATORY: Clear to auscultation bilaterally with no discernible wheezes or rales. ABDOMEN: Normoactive bowel sounds, soft, mildly distended. Tenderness to palpation in all abdominal quadrants, but improved from physical exam yesterday. LABORATORY DATA: CBC with a white blood cell count of 17.4, hemoglobin 9.6, hematocrit 31.2, platele ts 401. Chemistry with sodium of 130, potassium 3.2, chloride 96, CO2 is 21, BUN 30, creatinine 5.78 , glucose 142. ASSESSMENT AND PLAN: The patient is a 67-year-old female with past medical history of hypertension, hyperlipidemia, coronary artery disease, aortic valve replacement, and end-stage renal disease on per itoneal dialysis, presenting with abdominal pain and peritonitis from infectious etiology. 1. Abdominal pain. The patient initially presented with acute onset of mid epigastric left upper qu adrant abdominal pain that was associated with decrease in bowel movements and constipation. With wo rsening of her abdominal pain, she also endorsed increased intermittent nausea and vomiting with no e pisodes of hematemesis or other GI bleeding, with elevated white blood count on admission, concern fo r infection was high, with culture of her dialysate fluid showing gram positive cocci in pairs. Micr obiology now growing out coagulase negative Staph with possible mixed culture which could be a possib le skin contaminant, but at this point given improvement of her pain with antibiotic administration, I would treat this as real. RECOMMENDATIONS: 1. We would continue to treat with antibiotics for peritonitis associated with gram positive cocci/c oag negative staph. 2. We will continue MiraLax daily as part of bowel regimen for possible bowel movement. At this poi nt in time, with bowel movement yesterday, we would continue with current regimen with tap water enem a as needed.
[2017-11-13 05:10] LABS: #Eosinphils 0.1 thou/uL (0.0-0.7); #Lymphocytes 0.9 thou/uL (1.20-3.40); #Monocytes 0.6 thou/uL (0.11-0.59); #Neutrophils 6.7 thou/uL (1.40-6.50); %Basophils 0.5 % (0.0-1.0); %Lymphocytes 11.1 % (21.0-51.0); %Neutrophils 80.4 % (42.0-75.0); Hemoglobin 10.2 g/dL (12.0-16.0); Mean Corpuscular HGB CONC 30.6 g/dL (32.0-36.0); Mean Corpuscular Hemoglobin 29.1 pg (27.0-31.0); Mean Corpuscular Volume 95.2 fl (81.0-99.0); Mean Platelet Volume 6.9 fL (7.4-10.4); Platelet Count 397 thou/uL (130-400); RBC Distribution Width 13.3 % (11.5-14.5); White Blood Cell (WBC) Count 8.3 thou/uL (4.8-10.8)
[2017-11-13 05:25] LABS: Anion Gap 12 mmol/L (10-20); BUN (Urea Nitrogen) 28 mg/dL (9.8-20.1); Calc. Creatinine Clearance 10 mL/min (70-130); Calcium 8.6 mg/dL (7.8-10.44); Carbon Dioxide 24 mmol/L (23-31); Chloride 99 mmol/L (98-107); Estimated GFR-MDRD 7; Glucose 140 mg/dL (80-115); Potassium 3.1 mmol/L (3.5-5.1); Sodium 132 mmol/L (136-145)
[2017-11-13] MEDS: Pantoprazole 40 MG VIAL IVP SCH ×2 (08:35→20:23)
[2017-11-13] MEDS: Sevelamer Carbonate 800 MG TAB PO SCH ×3 (08:35→17:52)
[2017-11-13] MEDS: Potassium Chloride 20 MEQ TAB PO SCH (08:35)
[2017-11-13] MEDS: Sodium Chloride 0.9% 1,000 ML IV SCH ×2 (08:36→10:45)
[2017-11-13 08:37] LABS: Vancomycin, Random 13.7 ug/mL (See Comment)
[2017-11-13] MEDS: Aspirin 81 mg Enteric Coated Tablet PO SCH (08:37)
[2017-11-13] MEDS: Senokot S 8.6-50 MG TAB PO SCH ×2 (08:37→20:24)
[2017-11-13] MEDS: Metoprolol Tartrate 25 MG TAB PO SCH ×2 (08:37→20:24)
[2017-11-13] MEDS: Polyethylene Glycol 3350 17 GM Packet PO SCH (08:38)
[2017-11-13] MEDS: Ciprofloxacin Lactate/D5W 200 MG in Premix Bag 1 BAG IVPB SCH ×2 (08:41→20:23)
[2017-11-13] MEDS: Clopidogrel Bisulfate 75 MG TAB PO SCH (08:42)
--- NOTE | 2017-11-13 09:52 | PRG ---
DATE OF SERVICE: 11/13/2017 RENAL MEDICINE SUBJECTIVE: Ms. Espino is a 67-year-old white female with ESRD, currently on nocturnal CCPD. She was diagnosed to have peritonitis. She is on empiric IV vancomycin. PD fluid showed coag negative. Aw aiting sensitivity. She has also severe obstipation. Currently on several laxatives and GI is follo wing. No other complaints. No nausea, no vomiting. PHYSICAL EXAMINATION: VITAL SIGNS: Blood pressure 127/78, heart rate 75, respiratory rate 16, temperature 98, pulse ox 97% . GENERAL: Awake, alert, supine, comfortable, not in distress. SKIN: Adequate turgor. HEENT: Pinkish conjunctivae. Anicteric sclerae. NECK: No neck mass, no carotid bruits, no JVD. CHEST: No deformities. LUNGS: Clear breath sounds, no wheezing, no crackles. HEART: Normal sinus rhythm. Grade 2/6 systolic murmur, no gallops, no rubs. ABDOMEN: Globular, soft, nontender, no masses. Positive for PD catheter. EXTREMITIES: No edema. MEDICATIONS: Medications of 11/13/2017 reviewed. LABORATORY DATA: Laboratories of 11/13/2017, white count 8.3 and hemoglobin 10.2. Vancomycin level is 13.7. ASSESSMENT AND PLAN: 1. Peritonitis - gram Staphylococcus aureus, on IV vancomycin. 2. End-stage renal disease, stable. Tolerating current continuous cycling peritoneal dialysis regim en. No changes will be made with her current peritoneal dialysis. 3. Borderline anemia. Continuing weekly Epogen. 4. Severe obstipation - GI following, currently on several laxatives. Tolerating soft diet at the p resent time. Agree with current management.
--- NOTE | 2017-11-13 15:15 | PRG ---
DATE OF SERVICE: 11/13/2017 REASON FOR CONSULTATION: Abdominal pain, constipation. SUBJECTIVE: The patient states that her abdominal pain is improving and was able to tolerate both cl ear liquid and full liquid within the last 24 hours without any further episodes of nausea and vomiti ng. At the current time, she says that her stomach feels little queasy, but does not endorse overt p ain. Currently, denies any nausea, vomiting, fevers, chills, shortness of breath, odynophagia or dys phagia. OBJECTIVE: VITAL SIGNS: Temperature 98, pulse 75, blood pressure 127/78, respiratory rate 16, satting 97% on ro om air. GENERAL: The patient is sitting at the side of the bed in no acute distress. She is alert and orien artis x4. Cervical collar in place. CARDIOVASCULAR: Regular rate and rhythm. No discernible murmurs, gallops or rubs. RESPIRATORY: Clear to auscultation bilaterally with no discernible wheezes or rales. ABDOMEN: Normoactive bowel sounds, soft, mildly distended. Minimal tenderness to palpation in the m idepigastric region. LABORATORY DATA AND IMAGING DATA: CBC with white blood cell count of 8.3, hemoglobin 10.2, hematocri t 33.3, platelet count 397. Chemistry with sodium 132, potassium 3.1, chloride 99, carbon dioxide 24 , BUN 28, creatinine 5.74, glucose 140. No current GI imaging is available for review. ASSESSMENT AND PLAN: The patient is a 67-year-old female with past medical history of hypertension, hyperlipidemia, coronary artery disease, aortic valve replacement, and end-stage renal disease on per itoneal dialysis, presenting with peritonitis from infectious etiology. Abdominal pain/nausea and vomiting. Patient initially presented with acute onset of midepigastric/le ft upper quadrant abdominal pain associated with increased nausea and vomiting. Upon admission to [facility], she was noted to have an elevated white blood cell count with culture of her peritoneal d ialysate positive for coagulase negative staph. Given the degree of elevation of the white blood dayna ls contained within the dialysate, it is consistent with a diagnosis of peritonitis as a result of [facility] infection. Currently on empiric vancomycin with significant improvement of her pain from admissio n and she is now able to tolerate a full liquid diet without any further episodes of nausea and vomit ing. RECOMMENDATIONS: 1. Would continue to treat with antibiotics empirically with IV vancomycin for her peritonitis and t ailor the antibiotics appropriately once susceptibilities are available. 2. Would continue MiraLax daily as part of her bowel regimen for possible bowel movement. Would not add any additional laxatives at this time given the tenuous nature of her GI tract and possibly maurisio cing nausea and vomiting. 3. If patient does need to have a bowel movement, we could consider a tap water enema as needed. We will sign off at this time. Please call with any additional questions.
[2017-11-13] MEDS: Cinacalcet HCl 30 MG TAB PO SCH (20:23)
--- NOTE | 2017-11-13 23:27 | PDOC.PN ---
- Subjective Encounter Start Date: 11/13/17 Encounter Start Time: 13:00 Patient seen and examined. No new complaints. No overnight events - Objective MAR Reviewed: Yes Vital Signs & Weight: Vital Signs (12 hours) Temp Pulse Resp BP BP Pulse Ox 11/13/17 20:00 98.2 F 103 H 16 129/84 98 11/13/17 12:00 97.6 F 71 18 113/65 100 Weight Weight 147 lb 5 oz I&O: 11/12/17 11/13/17 11/14/17 06:59 06:59 06:59 Intake Total 1620 Balance 1620 Result Diagrams: 11/13/17 04:49 11/14/17 05:02 Phys Exam - Physical Examination Constitutional: NAD Respiratory: no wheezing, no rhonchi Cardiovascular: RRR, no rub Gastrointestinal: soft, non-tender, positive bowel sounds Musculoskeletal: no edema Neurological: moves all 4 limbs Dx/Plan - Plan DVT proph w/SCDs IMPRESSION: 1. Peritoneal dialysis catheter associated Peritonitis - CN Staph 2. Abd pain/Constipation - on Miralax/Sen - S 3. Electrolyte abn - Hypokalemia/Hypomagnesemia 4. ESRD on PD 5. Other issues per previous notes PLAN: * Cont Vancomycin and Cipro * Advance diet * GI/Nephro following * Cont to monitor * Monitor Vancomycin levels * AM labs * Cont current meds as below * Cont walking program Review of Systems - Review of Systems Respiratory: negative: Cough, Dry, Shortness of Breath, Hemoptysis, SOB with Excertion, Pleuritic Pain, Sputum, Wheezing Cardiovascular: negative: chest pain, palpitations, orthopnea, paroxysmal nocturnal dyspnea, edema, light headedness - Medications/Allergies Allergies/Adverse Reactions: Allergies Allergy/AdvReac Type Severity Reaction Status Date / Time codeine Allergy Verified 08/27/17 12:43 iodine Allergy Verified 08/27/17 12:43 Penicillins Allergy Verified 08/27/17 12:43 shellfish derived Allergy Verified 08/27/17 12:43 Medications: Current Medications Acetaminophen (Tylenol) 650 mg PO Q4H PRN PRN Reason: Headache/Fever or Pain Last Admin: 11/10/17 20:27 Dose: 650 mg Aspirin (Ecotrin) 81 mg PO DAILY [facility] Last Admin: 11/13/17 08:37 Dose: 81 mg Cinacalcet (Sensipar) 60 mg PO HS [facility] Last Admin: 11/13/17 20:23 Dose: 60 mg Clopidogrel Bisulfate (Plavix) 75 mg PO DAILY [facility] Last Admin: 11/13/17 08:42 Dose: Not Given Docusate Sodium (Colace) 100 mg PO BID [facility] Epoetin Alejo (Procrit) 7,500 units SC Q7D@1100 [facility] Last Admin: 11/10/17 16:27 Dose: 7,500 units Hydralazine HCl (Apresoline) 10 mg SLOW IVP Q4H PRN PRN Reason: Hypertension Ciprofloxacin/Dextrose 200 mg/ (Device) 100 mls @ 100 mls/hr IVPB Q12HR [facility] Last Admin: 11/13/17 20:23 Dose: 100 mls Vancomycin HCl 1.25 gm/ Sodium (Chloride) 250 mls @ 166.667 mls/hr IVPB WILLCALL [facility] Vancomycin HCl 1 gm/ Device 200 mls @ 200 mls/[facility] Vancomycin HCl 750 mg/ Sodium (Chloride) 250 mls @ 250 mls/hr IVPB WILLCALL [facility] Last Admin: 11/13/17 14:46 Dose: 250 mls Vancomycin HCl 500 mg/ Sodium (Chloride) 100 mls @ 100 mls/hr [facility] Sodium Chloride (Normal Saline 0.9%) 1,000 mls @ 30 mls/hr IV .Q24H [facility] Last Admin: 11/13/17 10:45 Dose: 1,000 mls Labetalol HCl (Normodyne) 10 mg SLOW IVP Q4H PRN PRN Reason: SBP Greater Than 180 Magnesium Hydroxide (Milk Of Magnesium) 30 ml PO DAILYPRN PRN PRN Reason: Constipation Metoprolol Tartrate (Lopressor) 25 mg PO BID [facility] Last Admin: 11/13/17 20:24 Dose: 25 mg Miscellaneous Medication (Pharmacy To Dose) 1 each IVPB PRN PRN PRN Reason: Pharmacy to dose Hold Vancomycin For (Level >20) 0 each FS ASDIR PRN PRN Reason: HOLD VANCOMYCIN IF LEVEL > 20 Ondansetron HCl (Zofran) 4 mg IVP Q6H PRN PRN Reason: Nausea/Vomiting Last Admin: 11/12/17 18:14 Dose: 4 mg Pantoprazole Sodium (Protonix) 40 mg IVP Q12HR [facility] Last Admin: 11/13/17 20:23 Dose: 40 mg Polyethylene Glycol (Miralax) 17 gm PO DAILY [facility] Last Admin: 11/13/17 08:38 Dose: 17 gm Sevelamer Carbonate (Renvela) 2,400 mg PO TID-WM [facility] Last Admin: 11/13/17 17:52 Dose: 2,400 mg Sodium Chloride (Flush - Normal Saline) 10 ml IVF Q12HR [facility] Last Admin: 11/13/17 20:26 Dose: 10 ml Sodium Chloride (Flush - Normal Saline) 10 ml IVF PRN PRN PRN Reason: Saline Flush Tramadol HCl (Ultram) 50 mg PO Q6H PRN PRN Reason: Pain
[2017-11-14 05:38] LABS: Anion Gap 12 mmol/L (10-20); BUN (Urea Nitrogen) 25 mg/dL (9.8-20.1); Calc. Creatinine Clearance 10 mL/min (70-130); Calcium 8.4 mg/dL (7.8-10.44); Carbon Dioxide 24 mmol/L (23-31); Chloride 101 mmol/L (98-107); Estimated GFR-MDRD 7; Glucose 109 mg/dL (80-115); Potassium 3.5 mmol/L (3.5-5.1); Sodium 133 mmol/L (136-145)
[2017-11-14] MEDS: Aspirin 81 mg Enteric Coated Tablet PO SCH (09:09)
[2017-11-14] MEDS: Ciprofloxacin Lactate/D5W 200 MG in Premix Bag 1 BAG IVPB SCH ×2 (09:10→20:35)
[2017-11-14] MEDS: Docusate 100 MG CAP PO SCH ×2 (09:12→20:36)
[2017-11-14] MEDS: Pantoprazole 40 MG VIAL IVP SCH ×2 (09:13→20:41)
[2017-11-14] MEDS: Metoprolol Tartrate 25 MG TAB PO SCH ×2 (09:13→20:36)
[2017-11-14] MEDS: Clopidogrel Bisulfate 75 MG TAB PO SCH (09:14)
[2017-11-14] MEDS: Polyethylene Glycol 3350 17 GM Packet PO SCH (09:14)
[2017-11-14 09:34] LABS: Vancomycin, Random 22.3 ug/mL (See Comment)
--- NOTE | 2017-11-14 10:06 | PRG ---
DATE OF SERVICE: 11/14/2017 SUBJECTIVE: Ms. Espino is a 67-year-old white female who was admitted for severe obstipation. She st ill has not had a good bowel movement. She tolerated her p.o. last night. During this hospitalizati on, she was found to have peritonitis. She continues to be treated with IV antibiotics. She was rec eiving IV vancomycin. She is also tolerating the said peritoneal dialysis. No acute events last nig ht. OBJECTIVE: VITAL SIGNS: Blood pressure was noted at 129/84, heart rate 103, respiratory rate 16, temperature 98 .2, pulse ox 98%. GENERAL: Awake, sitting comfortable, not in distress. SKIN: Adequate turgor. HEENT: Slightly pale conjunctivae, anicteric sclerae. NECK: No neck mass, no carotid bruits, no JVD. CHEST: No deformities. LUNGS: Clear breath sounds. HEART: Normal sinus rhythm. No murmur, no gallops, no rubs. ABDOMEN: Globular, soft, nontender, no masses. Positive for PD catheter. EXTREMITIES: No edema. MEDICATIONS: Of 11/14/2017, reviewed. LABORATORY DATA: Of 11/14/2017, vancomycin level was 22.3. Sodium 133, potassium 3.5, chloride 101, carbon dioxide 24, BUN 25, creatinine 5.76, glucose 109, calcium 8.4, white count 8.3, hemoglobin 10 .2. ASSESSMENT AND PLAN: 1. Anemia - on weekly Epogen. 2. Peritonitis - Staphylococcus aureus - currently on IV vancomycin. 3. Severe obstipation. Gastroenterology following. 4. End-stage renal disease, stable. We will continue current CCPD regimen, tolerating said treatmen t. Agree with current management.
[2017-11-14] MEDS: Sevelamer Carbonate 800 MG TAB PO SCH ×3 (10:20→18:26)
[2017-11-14] MEDS: Sodium Chloride 0.9% 1,000 ML IV SCH (13:14)
[2017-11-14] MEDS: Cinacalcet HCl 30 MG TAB PO SCH (20:36)
--- NOTE | 2017-11-14 21:20 | PDOC.PN ---
- Subjective Encounter Start Date: 11/14/17 Encounter Start Time: 15:00 Patient seen and examined. No BM. No overnight events. No fever/abd pain. - Objective MAR Reviewed: Yes Vital Signs & Weight: Vital Signs (12 hours) Temp Pulse Resp BP BP Pulse Ox 11/14/17 20:00 97.7 F 85 18 118/77 99 11/14/17 12:00 97.4 F L 85 14 138/82 Weight Weight 147 lb 5 oz I&O: 11/13/17 11/14/17 11/15/17 06:59 06:59 06:59 Intake Total 1620 1430 Output Total 1200 Balance 1620 230 Result Diagrams: 11/13/17 04:49 11/14/17 05:02 Phys Exam - Physical Examination Constitutional: NAD Respiratory: no wheezing, no rhonchi Cardiovascular: RRR, no rub Gastrointestinal: soft, non-tender, positive bowel sounds Musculoskeletal: no edema Neurological: moves all 4 limbs Dx/Plan - Plan DVT proph w/SCDs IMPRESSION: 1. Peritoneal dialysis catheter associated Peritonitis - CN Staph 2. Abd pain/Constipation - on Miralax/Sen - S 3. Electrolyte abn - Hypokalemia/Hypomagnesemia 4. ESRD on PD 5. Other issues per previous notes PLAN: * Await sensivities * Cont Vancomycin and Cipro * Nephro following * Cont to monitor * Monitor Vancomycin levels * Cont current meds as below Microbiology 11/10/17 20:24 Dialysate Fluid Culture Body Fluid Culture - Preliminary Coagulase Neg Staphylococcus Coagulase Neg Staphylococcus#2 Review of Systems - Review of Systems Respiratory: negative: Cough, Dry, Shortness of Breath, Hemoptysis, SOB with Excertion, Pleuritic Pain, Sputum, Wheezing Cardiovascular: negative: chest pain, palpitations, orthopnea, paroxysmal nocturnal dyspnea, edema, light headedness - Medications/Allergies Allergies/Adverse Reactions: Allergies Allergy/AdvReac Type Severity Reaction Status Date / Time codeine Allergy Verified 08/27/17 12:43 iodine Allergy Verified 08/27/17 12:43 Penicillins Allergy Verified 08/27/17 12:43 shellfish derived Allergy Verified 08/27/17 12:43 Medications: Current Medications Acetaminophen (Tylenol) 650 mg PO Q4H PRN PRN Reason: Headache/Fever or Pain Last Admin: 11/10/17 20:27 Dose: 650 mg Aspirin (Ecotrin) 81 mg PO DAILY [facility] Last Admin: 11/14/17 09:09 Dose: 81 mg Cinacalcet (Sensipar) 60 mg PO HS [facility] Last Admin: 11/14/17 20:36 Dose: 60 mg Clopidogrel Bisulfate (Plavix) 75 mg PO DAILY [facility] Last Admin: 11/14/17 09:14 Dose: Not Given Docusate Sodium (Colace) 100 mg PO BID [facility] Last Admin: 11/14/17 20:36 Dose: 100 mg Epoetin Alejo (Procrit) 7,500 units SC Q7D@1100 [facility] Last Admin: 11/10/17 16:27 Dose: 7,500 units Hydralazine HCl (Apresoline) 10 mg SLOW IVP Q4H PRN PRN Reason: Hypertension Ciprofloxacin/Dextrose 200 mg/ (Device) 100 mls @ 100 mls/hr IVPB Q12HR [facility] Last Admin: 11/14/17 20:35 Dose: 100 mls Vancomycin HCl 1.25 gm/ Sodium (Chloride) 250 mls @ 166.667 mls/hr [facility] Vancomycin HCl 1 gm/ Device 200 mls @ 200 mls/hr IVPB [facility] Vancomycin HCl 750 mg/ Sodium (Chloride) 250 mls @ 250 mls/hr IVPB [facility] Last Admin: 11/13/17 14:46 Dose: 250 mls Vancomycin HCl 500 mg/ Sodium (Chloride) 100 mls @ 100 mls/hr [facility] Sodium Chloride (Normal Saline 0.9%) 1,000 mls @ 30 mls/hr IV .Q24H [facility] Last Admin: 11/14/17 13:14 Dose: 1,000 mls Labetalol HCl (Normodyne) 10 mg SLOW IVP Q4H PRN PRN Reason: SBP Greater Than 180 Magnesium Hydroxide (Milk Of Magnesium) 30 ml PO DAILYPRN PRN PRN Reason: Constipation Metoprolol Tartrate (Lopressor) 25 mg PO BID [facility] Last Admin: 11/14/17 20:36 Dose: 25 mg Miscellaneous Medication (Pharmacy To Dose) 1 each IVPB PRN PRN PRN Reason: Pharmacy to dose Hold Vancomycin For (Level >20) 0 each FS ASDIR PRN PRN Reason: HOLD VANCOMYCIN IF LEVEL > 20 Ondansetron HCl (Zofran) 4 mg IVP Q6H PRN PRN Reason: Nausea/Vomiting Last Admin: 11/12/17 18:14 Dose: 4 mg Pantoprazole Sodium (Protonix) 40 mg IVP Q12HR [facility] Last Admin: 11/14/17 20:41 Dose: 40 mg Polyethylene Glycol (Miralax) 17 gm PO DAILY [facility] Last Admin: 11/14/17 09:14 Dose: 17 gm Sevelamer Carbonate (Renvela) 2,400 mg PO TID-WM [facility] Last Admin: 11/14/17 18:26 Dose: 2,400 mg Sodium Chloride (Flush - Normal Saline) 10 ml IVF Q12HR [facility] Last Admin: 11/14/17 20:42 Dose: 10 ml Sodium Chloride (Flush - Normal Saline) 10 ml IVF PRN PRN PRN Reason: Saline Flush Tramadol HCl (Ultram) 50 mg PO Q6H PRN PRN Reason: Pain
[2017-11-15 06:05] LABS: Anion Gap 12 mmol/L (10-20); BUN (Urea Nitrogen) 24 mg/dL (9.8-20.1); Calc. Creatinine Clearance 9 mL/min (70-130); Calcium 8.1 mg/dL (7.8-10.44); Carbon Dioxide 25 mmol/L (23-31); Chloride 100 mmol/L (98-107); Estimated GFR-MDRD 7; Glucose 142 mg/dL (80-115); Potassium 3.5 mmol/L (3.5-5.1); Sodium 133 mmol/L (136-145)
[2017-11-15] MEDS: Docusate 100 MG CAP PO SCH (08:56)
[2017-11-15] MEDS: Aspirin 81 mg Enteric Coated Tablet PO SCH (08:56)
[2017-11-15] MEDS: Sevelamer Carbonate 800 MG TAB PO SCH ×2 (08:57→12:44)
[2017-11-15] MEDS: Polyethylene Glycol 3350 17 GM Packet PO SCH (08:57)
[2017-11-15] MEDS: Metoprolol Tartrate 25 MG TAB PO SCH (08:57)
[2017-11-15] MEDS: Pantoprazole 40 MG VIAL IVP SCH (08:57)
[2017-11-15] MEDS: Ciprofloxacin Lactate/D5W 200 MG in Premix Bag 1 BAG IVPB SCH (08:58)
[2017-11-15 09:30] LABS: Vancomycin, Random 20.4 ug/mL (See Comment)
--- NOTE | 2017-11-15 10:50 | PRG ---
DATE OF SERVICE: 11/15/2017. SUBJECTIVE: Ms. Espino is a 67-year-old white female being followed up for her ESRD -maintenance mathew toneal dialysis. She underwent peritoneal dialysis without any difficulty yesterday. She also was a dmitted for severe obstipation. She tells me she had a bowel movement. She is tolerating p.o. She is also being followed by GI. No complaints of chest pain or shortness of breath. PHYSICAL EXAMINATION: VITAL SIGNS: Blood pressure 138/77, heart rate 86, respiratory rate 16, temperature 97.7, pulse ox 9 8%. GENERAL: Awake, alert, sitting comfortable, not in distress. SKIN: Adequate turgor. HEENT: She has pinkish conjunctivae, anicteric sclerae. NECK: No neck mass, but positive for a cervical collar. LUNGS: Decreased breath sounds. HEART: Normal sinus rhythm. Grade 2/6 systolic murmur, no gallops or rubs. ABDOMEN: Globular, soft, nontender. Positive for PD catheter. EXTREMITIES: No edema. MEDICATIONS: 11/15/2017 - Reviewed. LABORATORY: 11/13/2017 - White count 8.3, hemoglobin 10.2. Sodium 133, potassium 3.5, chloride 100, carbon dioxide 25, BUN 24, creatinine 5.91, glucose 142, calcium 8.1. ASSESSMENT AND PLAN: 1. End-stage renal disease, stable. Tolerating current continuous cycling peritoneal dialysis regim en. No changes will be made with her current peritoneal dialysis regimen. She is tolerating said tr eatment. Ultrafiltration is being tolerated. 2. Severe obstipation. The patient has had a small bowel movement. Continue current management. 3. Anemia, currently on weekly Epogen. I agree with current management.
[2017-11-15] MEDS: Sodium Chloride 0.9% 1,000 ML IV SCH (12:44)
[2017-11-15 14:01] VITALS: BP 112/64; TEMP 97.5
--- NOTE | 2017-11-16 13:46 | DIS ---
DATE OF DISCHARGE: 11/15/2017 DISCHARGE DISPOSITION: Home. FOLLOWUP: 1. Follow up with primary care physician, Dr. Janes Sanchez in 1 week. 2. Follow up with Dr. Flores. ALLERGIES: Patient is allergic to CODEINE, IODINE, PENICILLIN, and SHELLFISH. The patient was seen and examined on the day of discharge, denies any new complaints, no chest pain, shortness of breath or palpitations. BRIEF HOSPITAL COURSE: Patient is a 67-year-old female with end-stage renal disease on peritoneal di alysis, hypertension, and hyperlipidemia presented to the hospital with abdominal pain and vomiting. Please refer to the history and physical dated 11/10/2017 for further details. The patient was admitted to the hospital with a diagnosis of abdominal pain, nausea, vomiting with co nstipation. The patient was seen by Gastroenterology, Dr. Spivey. CT scan of the abdomen and pelvis was negative for acute intra-abdominal pathology. KUB was negative as well. Culture from the perito yany fluid was positive for coagulase negative Staphylococcus sensitive to vancomycin. She was place d on vancomycin and ciprofloxacin since admission. She was started on MiraLax for by GI. Her abdomi nal pain, nausea, vomiting was probably secondary to peritoneal dialysis catheter associated peritoni tis. Peritoneal fluid showed WBC of 14.7 with 86% neutrophils. Vancomycin will be changed to intrap eritoneal vancomycin by Dr. Flores. Patient has been cleared by consultants for discharge. FINAL DIAGNOSES: 1. Peritoneal dialysis catheter associated peritonitis due to coagulase negative Staphylococcus. 2. Nausea, vomiting, abdominal pain, improved. 3. Constipation, started on MiraLax. 4. Electrolyte abnormalities. Patient had hypomagnesemia of 1.4 and potassium of 3.0. 5. End-stage renal disease on peritoneal dialysis. 6. Coronary artery disease. 7. Small bilateral pleural effusion. Plan of care was discussed with the patient. She stated understanding. No changes in her medications were made. The patient was advised to take MiraLax and Protonix on a d aily basis. Vancomycin will be given intraperitoneally by Nephrology.
--- NOTE | 2017-11-16 15:14 | EKG ---
Test Reason : Blood Pressure : / mmHG Vent. Rate : 119 BPM Atrial Rate : 131 BPM P-R Int : 000 ms QRS Dur : 130 ms QT Int : 378 ms P-R-T Axes : 000 -29 106 degrees QTc Int : 531 ms Demand pacemaker; interpretation is based on intrinsic rhythm Atrial fibrillation with rapid ventricular response with premature ventricular or aberrantly conducte d complexes Left bundle branch block Abnormal ECG Confirmed by ELIGIO SHEPPARD ([id number]), assignment editor BALA GRACE ([id number]) on 11/16/2017 3:14:17 PM Referred By: Confirmed By:ELIGIO SHEPPARD
== END 2017-11-15 13:51 | disposition home or self-care (01) | DRG 919 ==
LOC: ERS 23:05 → 2SW 11-10 04:21 → OBSVTOIN 11-11 09:54 → T4-B 11-11 17:36
PROVIDERS: ADMIT Internal Medicine; ATTEND Internal Medicine
PROC: 3E1M39Z Irrigation of Peritoneal Cavity using Dialysate, Percutaneous Approach (ICD-10-PCS; principal; 2017-11-11)
PROC: 3E1M39Z Irrigation of Peritoneal Cavity using Dialysate, Percutaneous Approach (ICD-10-PCS; 2017-11-13)
PROC: 3E1M39Z Irrigation of Peritoneal Cavity using Dialysate, Percutaneous Approach (ICD-10-PCS; 2017-11-14)
DX: T85.71XA Infection and inflammatory reaction due to peritoneal dialysis catheter, initial encounter (principal); K65.8 Other peritonitis; J90 Pleural effusion, not elsewhere classified; I12.0 Hypertensive chronic kidney disease with stage 5 chronic kidney disease or end stage renal disease; N18.6 End stage renal disease; E83.42 Hypomagnesemia; E86.1 Hypovolemia; E78.5 Hyperlipidemia, unspecified; I25.10 Atherosclerotic heart disease of native coronary artery without angina pectoris; Z95.2 Presence of prosthetic heart valve; Z79.01 Long term (current) use of anticoagulants; Z95.0 Presence of cardiac pacemaker; Z88.5 Allergy status to narcotic agent; Z88.0 Allergy status to penicillin; Z91.013 Allergy to seafood; K59.00 Constipation, unspecified; E87.6 Hypokalemia; Z99.2 Dependence on renal dialysis; D63.1 Anemia in chronic kidney disease; B95.61 Methicillin susceptible Staphylococcus aureus infection as the cause of diseases classified elsewhere
CPT/HCPCS: 36415; 74018; 74177; 80048; 80053; 80202; 82553; 82945; 83735; 84157; 84484; 85025; 85060; 87070; 87077; 87186; 87205; 89051; 90945; 93005; 94760; 96365; 96374; 96375; A4216; C9113; G0257; J0696; J0744; J1644; J2270; J2405; J3370; J3475; J3480; J7050; Q4081; S0028

== ENCOUNTER 2017-11-22 13:29 | Inpatient (IN) | payer MEDICARE, BC ==
[2017-11-22 14:09] LABS: #Basophils 0.1 thou/uL (0.0-0.2); #Monocytes 0.3 thou/uL (0.11-0.59); #Neutrophils 4.3 thou/uL (1.40-6.50); %Basophils 1.1 % (0.0-1.0); %Eosinophils 0.3 % (0.0-10.0); %Monocytes 5.1 % (0.0-10.0); %Neutrophils 76.5 % (42.0-75.0); Hemoglobin 11.5 g/dL (12.0-16.0); Mean Corpuscular HGB CONC 31.1 g/dL (32.0-36.0); Mean Corpuscular Hemoglobin 29.3 pg (27.0-31.0); Mean Corpuscular Volume 94.3 fl (81.0-99.0); Mean Platelet Volume 6.9 fL (7.4-10.4); Platelet Count 296 thou/uL (130-400); Red Blood Cell (RBC) Count 3.92 mill/uL (4.20-5.40); White Blood Cell (WBC) Count 5.6 thou/uL (4.8-10.8)
--- NOTE | 2017-11-22 14:18 | RAD ---
PORTABLE CHEST: HISTORY: Shortness of breath. COMPARISON: 08/27/2014 FINDINGS: Heart size is within normal limits. An aortic valve stent is present. The lungs show chronic change . The bones are demineralized. A pacemaker is in place. IMPRESSION: Chronic lung change. POS: KULDEEP
[2017-11-22 14:29] LABS: Anion Gap 14 mmol/L (10-20); BUN (Urea Nitrogen) 23 mg/dL (9.8-20.1); Calc. Creatinine Clearance 0 mL/min (70-130); Calcium 7.6 mg/dL (7.8-10.44); Carbon Dioxide 26 mmol/L (23-31); Chloride 94 mmol/L (98-107); Estimated GFR-MDRD 5; Glucose 104 mg/dL (80-115); Potassium 3.2 mmol/L (3.5-5.1); Sodium 131 mmol/L (136-145)
[2017-11-22 15:18] LABS: Albumin 2.7 g/dL (3.4-4.8)
[2017-11-22 15:21] LABS: Globulin 2.8 g/dL (2.4-3.5); Protein, Total 5.5 g/dL (6.0-8.3)
[2017-11-22 15:22] LABS: CKMB 4.2 ng/mL (0-6.6)
[2017-11-22 15:22] LABS: Bilirubin, Total Less than 0.2 mg/dL (0.2-1.2)
[2017-11-22 15:23] LABS: Alkaline Phosphatase 124 U/L (40-150)
[2017-11-22 15:26] LABS: ALT (SGPT) 21 U/L (8-55); AST (SGOT) 24 U/L (5-34)
[2017-11-22] MEDS ORDERED: Lorazepam 2 MG/ML VIAL ONE (16:21)
[2017-11-22] MEDS ORDERED: Mag-Al 1200 mg/1200 mg/30 ML UDCUP PO PRN (17:20)
[2017-11-22] MEDS ORDERED: Calcium Carbonate 500 MG ChewTAB PO PRN (17:20)
[2017-11-22] MEDS ORDERED: Bisacodyl 5 MG TAB PO PRN (17:20)
[2017-11-22] MEDS ORDERED: Milk Of Magnesia 30 ML UDCUP PO PRN (17:20)
[2017-11-22] MEDS ORDERED: Ondansetron HCl/PF 4 MG/2 ML Vial IVP PRN (17:20)
[2017-11-22] MEDS ORDERED: Senokot 8.6 MG TAB PO PRN (17:20)
[2017-11-22] MEDS ORDERED: Acetaminophen 325 MG TAB PO PRN (17:20)
[2017-11-22] MEDS ORDERED: Pepto Bismol Chew TAB PO PRN (17:20)
[2017-11-22] MEDS ORDERED: Vancomycin HCl 500 MG in Sodium Chloride 0.9% 100 ML IVPB SCH (17:45)
[2017-11-22] MEDS ORDERED: Vancomycin HCl 1 GM in Premix Bag 1 BAG IVPB SCH ×2 (17:45→18:00)
[2017-11-22] MEDS ORDERED: Vancomycin HCl 750 MG in Sodium Chloride 0.9% 250 ML 250 ML IVPB SCH (17:45)
[2017-11-22] MEDS ORDERED: Vancomycin Sliding Scale 1 EACH FS ONE (17:45)
[2017-11-22] MEDS ORDERED: HOLD VANCOMYCIN FOR LEVEL >20 FS SCH (17:45)
[2017-11-22] MEDS ORDERED: Vancomycin HCl 1.25 GM in Sodium Chloride 0.9% 250 ML 250 ML IVPB SCH (17:45)
[2017-11-22 17:57] LABS: Troponin I 0.185 ng/mL (< 0.028)
[2017-11-22 18:47] LABS: Lactic Acid 1.5 mmol/L (0.5-2.2)
[2017-11-22 19:45] VITALS: BMI 22.3
[2017-11-22 20:34] LABS: Troponin I 0.157 ng/mL (< 0.028)
[2017-11-22] MEDS: Heparin 5,000 UNITS/ML VIAL SC SCH (20:43)
[2017-11-22] MEDS: Benzonatate 100 MG CAP PO SCH (20:43)
[2017-11-22] MEDS ORDERED: Lorazepam 0.5 MG TAB PO PRN (22:33)
[2017-11-23 05:19] LABS: #Lymphocytes 0.7 thou/uL (1.20-3.40); #Monocytes 0.3 thou/uL (0.11-0.59); #Neutrophils 3.6 thou/uL (1.40-6.50); %Basophils 0.7 % (0.0-1.0); %Eosinophils 0.3 % (0.0-10.0); %Lymphocytes 15.1 % (21.0-51.0); %Monocytes 6.1 % (0.0-10.0); %Neutrophils 77.7 % (42.0-75.0); Mean Corpuscular HGB CONC 31.3 g/dL (32.0-36.0); Mean Corpuscular Hemoglobin 29.4 pg (27.0-31.0); Mean Corpuscular Volume 93.7 fl (81.0-99.0); Mean Platelet Volume 6.8 fL (7.4-10.4); Platelet Count 279 thou/uL (130-400); RBC Distribution Width 14.7 % (11.5-14.5); Red Blood Cell (RBC) Count 3.41 mill/uL (4.20-5.40); White Blood Cell (WBC) Count 4.7 thou/uL (4.8-10.8)
[2017-11-23 05:40] LABS: Anion Gap 12 mmol/L (10-20); BUN (Urea Nitrogen) 24 mg/dL (9.8-20.1); Calc. Creatinine Clearance 7 mL/min (70-130); Calcium 7.5 mg/dL (7.8-10.44); Carbon Dioxide 29 mmol/L (23-31); Chloride 95 mmol/L (98-107); Estimated GFR-MDRD 6; Glucose 106 mg/dL (80-115); Potassium 3.1 mmol/L (3.5-5.1); Sodium 133 mmol/L (136-145)
--- NOTE | 2017-11-23 06:59 | HP ---
CHIEF COMPLAINT: Shortness of breath and cough. HISTORY OF PRESENT ILLNESS: This is a 67-year-old female with a past medical history significant for hypertension as well as end-stage renal disease on peritoneal dialysis, who presents to the hospital after cough and shortness of breath that started approximately 3-4 days ago. The patient states usman t she was admitted approximately about a week and half ago and was discharged about a week ago. She was doing well until a few days ago when she began to having a cough and shortness of breath that con tinued to persist as well as progress. Because of that, she decided to come to the hospital for furt her evaluation and management. She states that the cough is nonproductive in nature. She denies any fever, chills, or night sweats. She also denies any chest pains or dizziness. PAST MEDICAL HISTORY: As stated, hypertension, hyperlipidemia, end-stage renal disease on hemodialys is as well as coronary artery disease status post pacemaker. PAST SURGICAL HISTORY: Includes cholecystectomy, hysterectomy as well as AVR. FAMILY HISTORY: Reviewed and was noncontributory to this patient's stay. SOCIAL HISTORY: The patient denies tobacco use, recreational use or alcohol abuse. REVIEW OF SYSTEMS: A 14-point review of systems was reviewed and was negative other than what was me ntioned in the HPI. HOME MEDICATIONS: Still trying to be retrieved at this time. PHYSICAL EXAMINATION: VITAL SIGNS: Blood pressure was 125/75, pulse was 97, respiratory rate was 22, patient was satting 1 00% oxygen on 2 liters, temperature 98.6. GENERAL: The patient was in no apparent distress, sitting comfortably in bed, alert, awake, oriented x3. HEENT: Head is normocephalic, atraumatic. Eyes: Pupils are round and reactive to light. Extraocul ar muscles were intact. Conjunctivae was pink. Sclerae was nonicteric. Mouth: Oral mucosa is pink and moist. No icterus noted. NECK: Patient had a C-collar that was on, so cannot appreciate her neck fully. CARDIOVASCULAR: Regular rate and rhythm. S1, S2 sounds are heard. No S3 or S4. RESPIRATORY: Clear to auscultation bilaterally. No added sounds. ABDOMEN: Bowel sounds, soft, nontender, nondistended. EXTREMITIES: Pulses were 2+ both dorsalis and radial pulse. No pitting edema could be appreciated. LABORATORY DATA: White blood cell count is 5.6, hemoglobin 11.5, hematocrit 36.9, platelet count was 296. Sodium was 131, potassium 3.2, chloride is 94, bicarbonate is 26, BUN was 23, creatinine was 7 .42. Lactic acid was 2.4. BNP was 2000. Troponin was 0.190. ASSESSMENT AND PLAN: 1. Pneumonia, likely healthcare-associated pneumonia with the patient recently being in the hospital for approximately about a week ago. 2. End-stage renal disease on peritoneal dialysis. 3. Hypokalemia, hyponatremia. 4. Hypertension. 5. Coronary artery disease, status post pacemaker. HOSPITAL COURSE: While the patient was in the hospital, we placed the patient on IV antibiotics with Levaquin as well as vancomycin. The patient is allergic to penicillin, so we will stay away from Zo syn. We will check a lactic acid. She also was found to have indeterminate range troponins, which i s likely due to her elevated BNP with end-stage renal disease. However, we will check and trend, but I do not believe there is any cardiac component at this time. We will follow up with blood cultures that has had already been drawn. Reevaluate the patient in a.m. and management will be pending labs as well as repeat eval. Also, Nephrology has already been consulted, so we will defer to Nephrology about her electrolyte imbalance with her sodium as well as potassium as the patient has peritoneal d ialysis. Continue with supportive management. We will also add cough suppressants with Tessalon Per les if needed.
[2017-11-23] MEDS: Benzonatate 100 MG CAP PO SCH ×3 (08:59→21:08)
[2017-11-23] MEDS: Heparin 5,000 UNITS/ML VIAL SC SCH ×2 (08:59→21:08)
--- NOTE | 2017-11-23 11:01 | PRG ---
DATE OF SERVICE: 11/23/2017 RENAL MEDICINE SUBJECTIVE: Ms. Espino is a 67-year-old white female with ESRD - currently on CCPD regimen, and admit artis for shortness of breath. This was said to be progressive. There was no associated fever, produc tive cough, or chest pain. Chest x-ray showed chronic lung changes. She is being empirically treate d as if she has pneumonia. We are being consulted for maintenance peritoneal dialysis. She underwent peritoneal dialysis withou t any problem last night. This morning, she still has some mild shortness of breath, but not any wor se. OBJECTIVE: VITAL SIGNS: Blood pressure is 102/62, heart rate 107, respiratory rate 18, temperature 96.9, and pu lse ox 94%. GENERAL: Awake, alert, comfortable, not in distress. SKIN: Adequate turgor. HEENT: She has pinkish conjunctivae, anicteric sclerae. NECK: No neck mass, no carotid bruits, no JVD. CHEST: No deformities. LUNGS: Decreased breath sounds, no wheezing, no crackles. HEART: Normal sinus rhythm. No murmur, no gallops or rubs. ABDOMEN: Globular, soft, nontender. No masses. EXTREMITIES: No edema, no deformities. MEDICATIONS: Of 11/23/2017 was reviewed. LABORATORY DATA: Of 11/23/2017, white count 4.7, hemoglobin 10. Sodium 133, potassium 3.1, chloride 95, carbon dioxide 29, BUN 24, creatinine 6.91, calcium 7.5. ASSESSMENT AND PLAN: 1. End-stage renal disease, stable. Continue current continuous cyclic peritoneal dialysis regimen. Tolerated peritoneal dialysis yesterday. We will continue current dialysis regimen. Due to the lo w blood pressure, we are using a 1.5% PD solution to minimize ultrafiltration. 2. Shortness of breath, unclear etiology. She is afebrile and the patient actually does not show an y of diffuse infiltrates or pneumonic lesions. She has chronic changes. For this reason, the possib ility of chronic obstructive pulmonary disease exacerbation remains. We will start the patient on Du oNeb as well as continued antibiotics. 3. Awaiting Cardiology input. Overall, agree with current management. Recheck base met and CBC in a.m.
[2017-11-23] MEDS ORDERED: Benzonatate 100 MG CAP PO PRN (12:22)
[2017-11-23] MEDS ORDERED: hydrOXYzine 25 MG TAB PO PRN (12:22)
--- NOTE | 2017-11-23 12:23 | PDOC.PN ---
- Subjective Encounter Start Date: 11/23/17 Encounter Start Time: 11:00 Patient is seen today, c/o SOB, No chest pain, She has orthopnea and also on Cervical collar from a Fall a month ago. Pt has lot of anxiety issues, She is Admitted with pneumonia diagnosis, but with no infiltatre and no WBC elevation. - Objective Resuscitation Status: Resuscitation Status FULL:Full Resuscitation Vital Signs & Weight: Vital Signs (12 hours) Temp Pulse Resp BP Pulse Ox 11/23/17 11:52 97.9 F 109 H 20 140/71 98 11/23/17 07:22 96.9 F L 107 H 18 102/62 94 L 11/23/17 04:00 97.8 F 110 H 16 130/71 96 Weight Weight 134 lb 14.4 oz I&O: 11/22/17 11/23/17 11/24/17 06:59 06:59 07:59 Intake Total 290 Output Total 0 Balance 290 Result Diagrams: 11/23/17 04:41 11/23/17 04:41 Radiology Reviewed by me: Yes EKG Reviewed by me: Yes Phys Exam - Physical Examination HEENT: PERRLA, moist MMs Neck: no nodes, no JVD Respiratory: no wheezing, no rales Cardiovascular: RRR, no significant murmur Gastrointestinal: soft, non-tender Musculoskeletal: no edema, pulses present Neurological: non-focal, normal sensation Lymphatic: no nodes Psychiatric: normal affect, A&O x 3 Skin: no rash, normal turgor Dx/Plan (1) Dyspnea Code(s): R06.00 - DYSPNEA, UNSPECIFIED Status: Acute Comment: Pt uinitially Diagnosed with PNA, with No Infiltarte in lungs and no WBC elevation, Mild Cough likley Post nasal drip. Will continue ABx a this time. Will evaalute for COPD? or CHF, will get Echo and BNP, Family requesting Cardiology. Pt also has evated Trop. (2) NSTEMI (non-ST elevated myocardial infarction) Code(s): I21.4 - NON-ST ELEVATION (NSTEMI) MYOCARDIAL INFARCTION Status: Acute Comment: Elavated Trop not trending up, Likely Demand ischemia with ESRD not clearing up, will Continue pt on Aspirin/ BB, and Statin. Waiting Cardiology Consult, Echo pending. (3) ESRD (end stage renal disease) Code(s): N18.6 - END STAGE RENAL DISEASE Status: Acute Comment: Continue on PD , Dr. Flores Following, pt has mild hypokalemia. (4) Anxiety and depression Code(s): F41.8 - OTHER SPECIFIED ANXIETY DISORDERS Status: Acute Comment: Will continue with her home MEds, She takes Ativan q 6hrs,. Will continue. (5) Hypertension Code(s): I10 - ESSENTIAL (PRIMARY) HYPERTENSION Status: Acute Comment: Will continue pt on home MEds. - Plan cont current plan of care, plan discussed w/ family, davila catheter, continue antibiotics, PT/OT, respiratory therapy, incentive spirometry, out of bed/ ambulate, DVT proph w/lovenox * . - Discharge Day Encounter end time: 11:35 Review of Systems - Review of Systems Constitutional: weakness, malaise. negative: fever, chills, sweats, other Eyes: negative: Pain, Vision Change, Conjunctivae Inflammation, Eyelid Inflammation, Redness, Other ENT: negative: Ear Pain, Ear Discharge, Nose Pain, Nose Discharge, Nose Congestion, Mouth Pain, Mouth Swelling, Throat Pain, Throat Swelling, Other Respiratory: Shortness of Breath, SOB with Excertion Cardiovascular: negative: chest pain, palpitations, orthopnea, paroxysmal nocturnal dyspnea, edema, light headedness, other Gastrointestinal: negative: Nausea, Vomiting, Abdominal Pain, Diarrhea, Constipation, Melena, Hematochezia, Other Genitourinary: negative: Dysuria, Frequency, Incontinence, Hematuria, Retention , Other Musculoskeletal: negative: Neck Pain, Shoulder Pain, Arm Pain, Back Pain, Hand Pain, Leg Pain, Foot Pain, Other Skin: negative: Rash, Lesions, Liang, Bruising, Other Neurological: negative: Weakness, Numbness, Incoordination, Change in Speech, Confusion, Seizures, Other - Medications/Allergies Allergies/Adverse Reactions: Allergies Allergy/AdvReac Type Severity Reaction Status Date / Time codeine Allergy Verified 08/27/17 12:43 iodine Allergy Verified 08/27/17 12:43 Penicillins Allergy Verified 08/27/17 12:43 shellfish derived Allergy Verified 08/27/17 12:43 Medications: Current Medications Acetaminophen (Tylenol) 650 mg PO Q6H PRN PRN Reason: Headache/Fever or Pain Al Hydroxide/Mg Hydroxide (Maalox) 30 ml PO Q6H PRN PRN Reason: Heartburn or Indigestion Albuterol/Ipratropium (Duoneb) 3 ml IPPB [id number] [facility] Aspirin (Ecotrin) 81 mg PO DAILY [facility] Benzonatate (Tessalon) 100 mg PO TID [facility] Last Admin: 11/23/17 08:59 Dose: 100 mg Benzonatate (Tessalon) 100 mg PO PRN PRN PRN Reason: Cough Bisacodyl (Dulcolax) 10 mg PO DAILYPRN PRN PRN Reason: Constipation Bismuth Subsalicylate (Pepto Bismol) 2 tab PO Q1H PRN PRN Reason: Diarrhea/Loose Stools Calcium Carbonate (Tums) 1,000 mg PO Q4H PRN PRN Reason: Heartburn or Indigestion Heparin Sodium (Porcine) (Heparin) 5,000 units SC BID [facility] Last Admin: 11/23/17 08:59 Dose: 5,000 units Hydroxyzine HCl (Atarax) 50 mg PO PRN PRN PRN Reason: Itching Levofloxacin 500 mg/ Device 100 mls @ 100 mls/hr IVPB Q2D@0900 [facility] Vancomycin HCl 1.25 gm/ Sodium (Chloride) 250 mls @ 166.667 mls/hr IVPB WILLCALL [facility] Vancomycin HCl 1 gm/ Device 200 mls @ 200 mls/hr IVPB WILLCALL [facility] Vancomycin HCl 750 mg/ Sodium (Chloride) 250 mls @ 250 mls/hr IVPB WILLCALL KEISHA Vancomycin HCl 500 mg/ Sodium (Chloride) 100 mls @ 100 mls/hr IVPB WILLCALL [facility] Lorazepam (Ativan) 0.5 mg PO Q6HR [facility] Magnesium Hydroxide (Milk Of Magnesium) 30 ml PO DAILYPRN PRN PRN Reason: Constipation Metoprolol Tartrate (Lopressor) 25 mg PO BID [facility] Hold Vancomycin For (Level >20) 0 each FS .AT DIALYSIS [facility] Non-Formulary Medication (Cholecalciferol (Vitamin D3) [Vitamin D3]) 2,000 unit PO QPM [facility] Non-Formulary Medication (Cinacalcet Hcl [Sensipar]) 60 mg PO HS [facility] Non-Formulary Medication (Lactulose [Enulose]) 10 gm PO DAILY [facility] Non-Formulary Medication (Losartan Potassium [Cozaar]) 100 mg PO DAILY [facility] Ondansetron HCl (Zofran) 4 mg IVP Q6H PRN PRN Reason: Nausea/Vomiting Pantoprazole Sodium (Protonix) 40 mg PO DAILY [facility] Polyethylene Glycol (Miralax) 17 gm PO DAILY [facility] Senna (Senokot) 2 tab PO HSPRN PRN PRN Reason: Constipation Sevelamer Carbonate (Renvela) 2,400 mg PO TID-WM [facility] Sodium Chloride (Flush - Normal Saline) 10 ml IVF Q12HR KEISHA Sodium Chloride (Flush - Normal Saline) 10 ml IVF PRN PRN PRN Reason: Saline Flush Vitamin B Complex/Vit C/Folic Acid (Nephro-Zeenat Tablet) 1 tab PO DAILY KEISHA
--- NOTE | 2017-11-23 15:28 | ULT ---
LEFT UPPER EXTREMITY VENOUS ULTRASOUND WITH DOPPLER: Date: 11/23/17 PROVIDED CLINICAL HISTORY: Left upper arm edema. FINDINGS: Neck brace precludes evaluation of the left internal jugular vein. Baker scale and color Doppler sonog elvi with spectral analysis was performed of the left subclavian, axillary, brachial, basilic, and c ephalic veins, demonstrating a normal sonographic appearance to the interrogated structures. IMPRESSION: No sonographic evidence for thrombosis involving the interrogated venous structures in the left upper extremity. POS: RAFAEL
[2017-11-23] MEDS: Sevelamer Carbonate 800 MG TAB PO SCH (17:19)
[2017-11-23] MEDS: Lorazepam 0.5 MG TAB PO SCH (17:19)
[2017-11-23] MEDS ORDERED: Non-Formulary Item 1 EACH (Cholecalciferol (Vitamin D3) [Vitamin D3] 2,000 UNIT) PO SCH (21:00)
[2017-11-23] MEDS ORDERED: CINACALCET HCL 60 MG PO SCH (21:00)
[2017-11-23] MEDS: Metoprolol Tartrate 25 MG TAB PO SCH (21:07)
[2017-11-23] MEDS: Cinacalcet HCl 30 MG TAB PO SCH (21:08)
[2017-11-24] MEDS: Lorazepam 0.5 MG TAB PO SCH ×4 (00:14→18:38)
[2017-11-24 05:43] LABS: #Lymphocytes 0.9 thou/uL (1.20-3.40); #Monocytes 0.4 thou/uL (0.11-0.59); #Neutrophils 2.7 thou/uL (1.40-6.50); %Basophils 0.7 % (0.0-1.0); %Eosinophils 0.6 % (0.0-10.0); %Lymphocytes 22.3 % (21.0-51.0); %Monocytes 9.9 % (0.0-10.0); %Neutrophils 66.6 % (42.0-75.0); Hemoglobin 9.6 g/dL (12.0-16.0); Mean Corpuscular HGB CONC 31.6 g/dL (32.0-36.0); Mean Corpuscular Hemoglobin 29.6 pg (27.0-31.0); Mean Corpuscular Volume 93.6 fl (81.0-99.0); Mean Platelet Volume 6.7 fL (7.4-10.4); Platelet Count 261 thou/uL (130-400); RBC Distribution Width 14.8 % (11.5-14.5); Red Blood Cell (RBC) Count 3.24 mill/uL (4.20-5.40)
[2017-11-24 05:55] LABS: Anion Gap 10 mmol/L (10-20); BUN (Urea Nitrogen) 24 mg/dL (9.8-20.1); Calc. Creatinine Clearance 6 mL/min (70-130); Calcium 7.5 mg/dL (7.8-10.44); Carbon Dioxide 31 mmol/L (23-31); Chloride 95 mmol/L (98-107); Estimated GFR-MDRD 5; Glucose 88 mg/dL (80-115); Potassium 3.1 mmol/L (3.5-5.1); Sodium 133 mmol/L (136-145)
[2017-11-24 08:29] LABS: Vancomycin, Random 28.3 ug/mL (See Comment)
[2017-11-24] MEDS ORDERED: LACTULOSE 10 GM PO SCH (09:00)
[2017-11-24] MEDS ORDERED: Non-Formulary Item 1 EACH (Losartan Potassium [Cozaar] 100 MG) PO SCH (09:00)
--- NOTE | 2017-11-24 09:36 | CON ---
DATE OF CONSULTATION: 11/23/2017 REASON FOR CONSULTATION: Shortness of breath. HISTORY OF PRESENT ILLNESS: Ms. Espino is a very pleasant 67-year-old woman whom I have seen and eval uated in the past. She has a history of end-stage renal disease on peritoneal dialysis, in addition to a TAVR. She also has a history of nonischemic cardiomyopathy. She underwent TAVR last year. She recently has been in the hospital for several weeks. She had peritonitis. She most recently sta miranda she has had cough and shortness of breath. No chest pain or pressure noted. PAST MEDICAL HISTORY: Nonischemic cardiomyopathy, TAVR, cholecystectomy and hysterectomy. SOCIAL HISTORY: No current tobacco or alcohol use. FAMILY HISTORY: Negative for CAD. HOME MEDICATIONS: Include folic acid, Sensipar, vitamin D3, aspirin, Renvela, MiraLax, Protonix, los saul, Lopressor, Cozaar and lorazepam. REVIEW OF SYSTEMS: Ten-point review of systems is reviewed and as above, otherwise negative. PHYSICAL EXAMINATION: GENERAL: Patient is a pleasant female who is in no acute distress. The patient appears her stated a ge. VITAL SIGNS: Blood pressure 128/70, pulse 89, temperature 99. NEUROLOGIC: The patient is alert and oriented times 3 with no focal neurologic deficits. HEENT: Sclerae without icterus. Mouth has moist mucous membranes with normal pallor. NECK: No JVD. Carotid upstroke brisk. No bruits bilaterally. Neck brace noted. LUNGS: Clear to auscultation with unlabored respirations. BACK: No scoliosis or kyphosis. CARDIAC: Regular rate and rhythm with normal S1 and S2. No S3 or S4 noted. No significant rubs, mur murs, thrills, or gallops noted throughout the precordium. PMI is not displaced. There is no parast ernal heave. ABDOMEN: Soft, nontender, nondistended. No peritoneal signs present. No hepatosplenomegaly. No abnormal striae. EXTREMITIES: 2+ femoral and 2+ dorsalis pedis pulses. No cyanosis, clubbing, or edema. SKIN: No gross abnormalities. PERTINENT LABORATORY DATA: Hemoglobin 9.6, BNP of 960, troponin 0.157, creatinine 7.62. IMPRESSION: 1. Shortness of breath. 2. History of nonischemic cardiomyopathy. 3. Recent cervical compression. RECOMMENDATIONS: Ms. Espino's symptoms can certainly be multifactorial. She does have a history of e nd-stage renal disease and is on peritoneal dialysis. She also may have some mechanical restriction due to recent neck brace. At this point, would recommend echo with Doppler to assess her LV function and assess her valve. May need to increase her peritoneal dialysis for better removal of fluid. He r current weight is 134 pounds. Her states she has lost weight since being in the hospital. This appears to be consistent with the office records for her baseline weight is 140 pounds as of . Echo pending.
[2017-11-24] MEDS: Metoprolol Tartrate 25 MG TAB PO SCH ×2 (10:13→22:05)
[2017-11-24] MEDS: Benzonatate 100 MG CAP PO SCH ×3 (10:13→22:03)
[2017-11-24] MEDS: Losartan 25 MG TAB PO SCH (10:13)
[2017-11-24] MEDS: Sevelamer Carbonate 800 MG TAB PO SCH ×3 (10:13→18:38)
[2017-11-24] MEDS: Aspirin 81 mg Enteric Coated Tablet PO SCH (10:13)
[2017-11-24] MEDS: Folic Acid/Vit B Comp W-C PO SCH (10:13)
[2017-11-24] MEDS: Heparin 5,000 UNITS/ML VIAL SC SCH ×2 (10:14→22:05)
[2017-11-24] MEDS: Polyethylene Glycol 3350 17 GM Packet PO SCH (10:15)
[2017-11-24] MEDS ORDERED: Epoetin (ESRD) 20,000 UNITS/ML SC SCH (10:30)
--- NOTE | 2017-11-24 10:41 | PRG ---
DATE OF SERVICE: 11/24/2017 RENAL MEDICINE SUBJECTIVE: Ms. Espino is a 67-year-old white female with ESRD and currently on maintenance peritonea l dialysis. Doing well with dialysis. She was initially admitted for shortness of breath. Review o f the chest x-ray did not show any pneumonia or CHF. She was started on neb treatment with some reli ef of the shortness of breath. She has also been evaluated by Cardiology. She voices no new complai nts today. PHYSICAL EXAMINATION: VITAL SIGNS: Blood pressure 119/68, heart rate 76, respiratory rate 16, temperature 97.6, pulse ox 9 2%. GENERAL: Noted to be awake, alert, comfortable, and supine. SKIN: Adequate turgor. HEENT: Pinkish conjunctivae. Anicteric sclerae. NECK: No neck mass, no carotid bruits. Positive for cervical neck collar. LUNGS: Clear breath sounds. No wheezing, no crackles. HEART: Normal sinus rhythm. No murmurs, no gallops, no rubs. ABDOMEN: Globular, soft, nontender, no masses. EXTREMITIES: No edema, no deformities. Please note she has a PD catheter in the abdomen. MEDICATIONS: Medications of 11/24/2017 reviewed. LABORATORY DATA: Laboratories of 11/24/2017; white count 4, hemoglobin 9.6. Sodium 133, potassium 3 .1, chloride 95, carbon dioxide 31, BUN 24, creatinine 7.62, calcium 7.5. BNP is 960. ASSESSMENT AND PLAN: 1. Shortness of breath - multifactorial etiology. Unclear if she may have underlying ischemic heart problem. Cardiology is following. We are continuing DuoNeb q.i.d. with this patient. She is also on empiric antibiotics. 2. End-stage renal disease, stable. Tolerating current peritoneal dialysis regimen. No changes rajesh l be made with her CCPD. 3. Anemia. Start Epogen 7,500 units subcu every week. 4. Recheck base met and CBC in a.m.
--- NOTE | 2017-11-24 14:24 | PDOC.PN ---
- Subjective Encounter Start Date: 11/24/17 Encounter Start Time: 13:30 Patient is seen today, alert and oriented. She has persistant left Arm swelling , pt says her SOB is improving with Duonebs, no previous h/o or Diagnosis with COPD. has a strong smoking history. Pt sayss he has seen Dr. Cordon before and wants to be consulted. - Objective Resuscitation Status: Resuscitation Status FULL:Full Resuscitation MAR Reviewed: Yes Vital Signs & Weight: Vital Signs (12 hours) Temp Pulse Resp BP Pulse Ox 11/24/17 12:54 101 H 18 96 11/24/17 08:00 96.9 F L 92 18 146/75 H 94 L 11/24/17 06:22 75 14 95 11/24/17 04:35 97.6 F 76 16 119/68 92 L Weight Weight 129 lb 4.8 oz I&O: 11/23/17 11/24/17 11/25/17 05:59 06:59 06:59 Intake Total Output Total Balance Result Diagrams: 11/24/17 05:19 11/24/17 05:19 Radiology Reviewed by me: Yes Phys Exam - Physical Examination HEENT: PERRLA, moist MMs Neck: no nodes, no JVD Respiratory: no rales, wheezing present (Prolonged Expiraotry phase,) Cardiovascular: RRR, no significant murmur Gastrointestinal: soft, non-tender Musculoskeletal: pulses present, edema present (Left upper Extremity) Neurological: non-focal, normal sensation Lymphatic: no nodes Psychiatric: normal affect, A&O x 3 Skin: no rash, normal turgor Dx/Plan (1) Dyspnea Code(s): R06.00 - DYSPNEA, UNSPECIFIED Status: Acute Qualifiers: Dyspnea type: shortness of breath Qualified Code(s): R06.02 - Shortness of breath; R06.00 - Dyspnea, unspecified; R06.01 - Orthopnea Comment: Pt uinitially Diagnosed with PNA, with No Infiltarte in lungs and no WBC elevation, Mild Cough likley Post nasal drip. Will continue ABx a this time. Will evaalute for COPD? will get Dr Cordon consulted per family request Echo is pending and BNP mildly elevated, Continue with Duo nebs and Albuteral nebs. (2) NSTEMI (non-ST elevated myocardial infarction) Code(s): I21.4 - NON-ST ELEVATION (NSTEMI) MYOCARDIAL INFARCTION Status: Acute Comment: Elavated Trop not trending up, Likely Demand ischemia with ESRD not clearing up, will Continue pt on Aspirin/ BB, and Statin. Cardiology Consulted Dr. Hartley following, Echo pending. (3) ESRD (end stage renal disease) Code(s): N18.6 - END STAGE RENAL DISEASE Status: Acute Comment: Continue on PD , Dr. Flores Following, pt has mild hypokalemia. (4) Anxiety and depression Code(s): F41.8 - OTHER SPECIFIED ANXIETY DISORDERS Status: Acute Comment: Will continue with her home MEds, She takes Ativan q 6hrs,. Will continue. (5) Hypertension Code(s): I10 - ESSENTIAL (PRIMARY) HYPERTENSION Status: Acute Comment: Will continue pt on home MEds. - Plan cont current plan of care, plan discussed w/ family, continue antibiotics, PT/OT , social worker health services, respiratory therapy, incentive spirometry, DVT proph w/ lovenox * . - Discharge Day Encounter end time: 14:05
[2017-11-24] MEDS ORDERED: Albuterol Sulfate 2.5 mg/3 ml Neb NEB PRN (14:29)
--- NOTE | 2017-11-24 16:27 | PRG ---
DATE OF SERVICE: 11/24/2017 SUBJECTIVE: Ms. Espino is feeling better. Her shortness of breath has somewhat improved. Her LVEF o n recent echo was estimated at 30%-35%. She did have significant dyskinesis present of the septum, w hich caused her LVEF to be decreased. OBJECTIVE: VITAL SIGNS: Blood pressure 116/74, pulse 91, temperature 97. LUNGS: Clear to auscultation. CARDIAC: Regular rate and rhythm. ABDOMEN: Soft, nontender, nondistended. EXTREMITIES: No edema. IMPRESSION: 1. Shortness of breath. 2. Nonischemic cardiomyopathy. 3. Status post transcatheter aortic valve replacement. RECOMMENDATIONS: I had a long discussion with Ms. Espino. At this point, there is concern for infect ion. It is unlikely she will be an appropriate candidate for ICD placement. She is currently on ant ibiotic therapy. I did strongly recommend she should stay on the LifeVest for at least the next jackie ral weeks until her infection clears and ICD can be placed. She is not interested in a LifeVest. Sh e states she wore it half the time during the last 3 months and has already turned in. She understan ds the risks. Otherwise, we will continue current medical therapy.
[2017-11-24] MEDS: Cinacalcet HCl 30 MG TAB PO SCH (22:04)
[2017-11-24] MEDS: Montelukast Sodium 10 mg Tablet PO SCH (22:05)
[2017-11-25 05:50] LABS: #Lymphocytes 0.8 thou/uL (1.20-3.40); #Monocytes 0.5 thou/uL (0.11-0.59); #Neutrophils 2.8 thou/uL (1.40-6.50); %Basophils 0.8 % (0.0-1.0); %Eosinophils 0.6 % (0.0-10.0); %Lymphocytes 18.8 % (21.0-51.0); %Monocytes 11.1 % (0.0-10.0); %Neutrophils 68.7 % (42.0-75.0); Hemoglobin 9.7 g/dL (12.0-16.0); Mean Corpuscular HGB CONC 31.7 g/dL (32.0-36.0); Mean Corpuscular Hemoglobin 29.4 pg (27.0-31.0); Mean Corpuscular Volume 92.9 fl (81.0-99.0); Mean Platelet Volume 6.8 fL (7.4-10.4); Platelet Count 253 thou/uL (130-400); RBC Distribution Width 14.7 % (11.5-14.5); Red Blood Cell (RBC) Count 3.31 mill/uL (4.20-5.40); White Blood Cell (WBC) Count 4.1 thou/uL (4.8-10.8)
[2017-11-25 05:58] LABS: Anion Gap 11 mmol/L (10-20); BUN (Urea Nitrogen) 23 mg/dL (9.8-20.1); Calc. Creatinine Clearance 6 mL/min (70-130); Calcium 7.6 mg/dL (7.8-10.44); Carbon Dioxide 31 mmol/L (23-31); Chloride 94 mmol/L (98-107); Estimated GFR-MDRD 5; Glucose 77 mg/dL (80-115); Potassium 3.3 mmol/L (3.5-5.1); Sodium 133 mmol/L (136-145)
[2017-11-25] MEDS: Lorazepam 0.5 MG TAB PO SCH ×4 (06:29→17:42)
--- NOTE | 2017-11-25 08:40 | PRG ---
DATE OF SERVICE: 11/25/2017 SUBJECTIVE: Ms. Espino is a 67-year-old white female with ESRD, currently on peritoneal dialysis and was admitted for shortness of breath. She was found to have a decreased ejection fraction of 30%-35% . Cardiology is currently following this patient. Recommendation that she will be placed on a LifeV est was made. Possibility of an AICD in the near future is also entertained. Her breathing is actua lly improved. She continues to get neb treatment. She is being treated for presumptive pneumonia. No other complaints today. Breathing is better. PHYSICAL EXAMINATION: VITAL SIGNS: Blood pressure is 116/56, heart rate 72, respiratory rate 16, temperature 97.4. GENERAL: Awake, supine, comfortable, not in distress. SKIN: Adequate turgor. HEENT: Slightly pale conjunctivae, anicteric sclerae. NECK: No neck mass, no carotid bruits. Positive for neck collar. LUNGS: Clear breath sounds. No wheezing. HEART: Normal sinus rhythm. Grade 2/6 systolic murmur, no gallops, no rubs. ABDOMEN: Globular, soft, nontender. Positive for PD catheter. EXTREMITIES: No edema, no deformities. MEDICATIONS: Medications of 11/25/2017 reviewed. LABORATORY DATA: Laboratories of 11/25/2017; white count 4.1, hemoglobin 9.7, hematocrit 30.8. Sodi um 133, potassium 3.3, chloride 94, carbon dioxide 31, BUN 23, creatinine 7.49, glucose 77, and calci um 7.6. ASSESSMENT AND PLAN: 1. Shortness of breath, multifactorial etiology. The patient has decreased EF. At the same time, s he most likely has underlying chronic obstructive pulmonary disease. Neb treatment is helping. Demarco browne is currently considering automated implantable cardioverter-defibrillator placement in the fut ure. LifeVest was recommended for the patient. 2. Anemia, continuing weekly Epogen of 7500 units subcutaneously every week. 3. End-stage renal disease, stable. Tolerating current peritoneal dialysis. No changes will be mad e with the current PD regimen. 4. Mild hypokalemia, currently on K-Dur 40 mEq once a day. Recheck basic metabolic panel and CBC in a.m.
[2017-11-25 08:47] LABS: Vancomycin, Random 27.7 ug/mL (See Comment)
[2017-11-25] MEDS ORDERED: Potassium Chloride 20 MEQ TAB PO SCH (09:30)
[2017-11-25] MEDS: Losartan 25 MG TAB PO SCH (09:38)
[2017-11-25] MEDS: Potassium Chloride 20 MEQ TAB PO SCH (09:39)
[2017-11-25] MEDS: Aspirin 81 mg Enteric Coated Tablet PO SCH (09:39)
[2017-11-25] MEDS: Benzonatate 100 MG CAP PO SCH ×3 (09:39→22:03)
[2017-11-25] MEDS: Sevelamer Carbonate 800 MG TAB PO SCH ×3 (09:39→17:42)
[2017-11-25] MEDS: Folic Acid/Vit B Comp W-C PO SCH (09:39)
[2017-11-25] MEDS: Heparin 5,000 UNITS/ML VIAL SC SCH ×2 (09:40→22:02)
[2017-11-25] MEDS: Polyethylene Glycol 3350 17 GM Packet PO SCH (09:41)
[2017-11-25] MEDS: Fluticasone Propionate Nasal Spray 16 gm Bottle NASAL SCH ×2 (10:25→22:01)
[2017-11-25] MEDS: Metoprolol Tartrate 25 MG TAB PO SCH ×2 (10:25→22:03)
--- NOTE | 2017-11-25 10:35 | PRG ---
DATE OF SERVICE: 11/25/2017 SUBJECTIVE: Ms. Solis is doing well. Her symptoms have improved. She continues to be on antibiotic therapy. PHYSICAL EXAMINATION: VITAL SIGNS: Blood pressure 132/60, pulse 79, temperature 97.8. LUNGS: Clear to auscultation. HEART: Regular rate and rhythm. ABDOMEN: Soft, nontender, and nondistended. EXTREMITIES: No edema. IMPRESSION: 1. Nonischemic cardiomyopathy. 2. Status post TAVR. 3. Recent peritonitis. RECOMMENDATIONS: I do not feel Ms. Espino's symptoms and shortness of breath are all related to under lying heart failure. She has a history of COPD. She has also lost 6 pounds over the last several we eks. I discussed defibrillator and LifeVest. At this point, she would like to defer LifeVest. She states she did not wear it very often when it was prescribed. She understands the risk of sudden car diac . At this point, I do not feel it is prudent to proceed with ICD placement given recent in fection. Plan is to follow up with Ms. Espino in the next 1 or 2 weeks as an outpatient. Otherwise, from a car diac standpoint, I have no further recommendations. Please reconsult if needed.
--- NOTE | 2017-11-25 13:26 | PQF ---
CLINICAL DOCUMENTATION IMPROVEMENT CLARIFICATION FORM: ICD-10 Updated PLEASE DO AN ADDENDUM TO THE PROGRESS NOTE WITH ANY DOCUMENTATION UPDATES OR ADDITIONS AND CARRY THROUGH TO DC SUMMARY. THANK YOU. DATE: 11/25/17 ATTN: DR. AGUILAR Please exercise your independent, professional judgment in responding to the clarification form. Clinical indicators are provided on the bottom of this form for your review Please check appropriate box(es): [ ] Sepsis due to: (Pna, UTI, gangrenous gall bladder, etc.) Due to: [ ] Device (please specify) [ ] Implant [ ] Graft [ ] Infusion [ ] SIRS due to non-infectious process (please specify etiology) [ ] with organ dysfunction [ ] without organ dysfunction [ ] Severe sepsis with acute organ dysfunction of: (Examples: respiratory failure, encephalopathy, acute kidney failure, other) [ ] Septic Shock [ ] Localized infection without sepsis [ ] Other diagnosis [ ] Unable to determine In addition, please specify: Present on Admission (POA): [ ] Yes [ ] No [ ] Unable to determine For continuity of documentation, please document condition throughout progress notes and discharge summary. Thank You. CLINICAL INDICATORS - SIGNS / SYMPTOMS / LABS pt has a peritoneal cath infection and is on vancomycin. unclear if pt has pneumonia however is being treating for it. ER NOTE: "SEPSIS" BP 75/62 PULSE 111 WBC 4.0 LACTIC ACID 2.4 RISKS: PNEUMONIA TREATMENT: IV VANCOMYCIN (ER-PRESENT) IV LEVAQUIN (ER-PRESENT) BLOOD CULTURES CARDIAC MONITORING [employer] Operator [employer] Winform Viewer(This form is maintained as a part of the permanent medical record) 2014 [employer]. All Rights Reserved [email or web address] Office: [phone] [facility]
--- NOTE | 2017-11-25 13:42 | PQF ---
CLINICAL DOCUMENTATION IMPROVEMENT CLARIFICATION FORM: ICD-10 Updated PLEASE DO AN ADDENDUM TO THE PROGRESS NOTE WITH ANY DOCUMENTATION UPDATES OR ADDITIONS AND CARRY THROUGH TO DC SUMMARY. THANK YOU. DATE: 11/25/17 ATTN: DR. AGUILAR Please exercise your independent, professional judgment in responding to the clarification form. Clinical indicators are provided on the bottom of this form for your review Please check appropriate box(s) to clarify if the following diagnosis has been ruled in or ruled out: PNEUMONIA [ ] Ruled in diagnosis [ ] Continue to treat [ ] Resolved [ ] Ruled out diagnosis [ ] Cannot rule out diagnosis [ ] Other diagnosis [ ] Unable to determine In addition, please specify: Present on Admission (POA): [ ] Yes [ ] No [ ] Unable to determine For continuity of documentation, please document condition throughout progress notes and discharge summary. Thank You. CLINICAL INDICATORS - SIGNS / SYMPTOMS / LABS H&P 11/22: "PNEUMONIA, LIKELY HEALTHCARE-ASSOCIATED PNEUMONIA WITH THE PATIENT RECENTLY BEING IN THE HOSPITAL FOR APPROXIMATELY ABOUT A WEEK AGO. HOSPITALIST PROGRESS NOTE 11/23: "SHE IS ADMITTED WITH PNEUMONIA DIAGNOSIS, BUT WITH NO INFILTRATE AND NO WBC ELEVATION." WBC 4.0 LACTIC ACID 2.4 RISKS: RECENT HOSPITALIZATION TREATMENT: IV VANCOMYCIN (ER-PRESENT) IV LEVAQUIN (ER-PRESENT) DUONEBS (11/24-PRESENT) TESSALON (11/22-PRESENT) SAP Residential Child Care Counselor [employer] Winform Viewer (This form is maintained as a part of the permanent medical record) 2014 [employer]. All Rights Reserved [email or web address] Office: [phone] Initially thought were possible pna and she is being tx with levaquin and vanco. she has been on vanco bc of her PD cath infection. not sure if she does have a pna. Pt's sob is multifactorial. EJ
--- NOTE | 2017-11-25 13:58 | PQF ---
CLINICAL DOCUMENTATION IMPROVEMENT CLARIFICATION FORM: ICD-10 Updated PLEASE DO AN ADDENDUM TO THE PROGRESS NOTE WITH ANY DOCUMENTATION UPDATES OR ADDITIONS AND CARRY THROUGH TO DC SUMMARY. THANK YOU. DATE: 11/25/17 ATTN: DR. AGUILAR Please exercise your independent, professional judgment in responding to the clarification form. Clinical indicators are provided on the bottom of this form for your review Please check appropriate box(s) to clarify if the following diagnosis has been ruled in or ruled out: NSTEMI [ ] Ruled in diagnosis [ ] Continue to treat [ ] Resolved [ ] Ruled out diagnosis [ ] Cannot rule out diagnosis [ ] Other diagnosis [ ] Unable to determine In addition, please specify: Present on Admission (POA): [ ] Yes [ ] No [ ] Unable to determine i would say elevated trop most likely demand ischemia For continuity of documentation, please document condition throughout progress notes and discharge summary. Thank You. CLINICAL INDICATORS - SIGNS / SYMPTOMS / LABS PROGRESS NOTE 11/23: "NSTEMI, ELEVATED TROP NOT TRENDING UP, LIKELY DEMAND ISCHEMIA WITH ESRD." CARDIOLOGY NOTE 11/24: "MS. CHASES SYMPTOMS CAN CERTAINLY BE MULTIFACTORIAL." CARIOLOGY NOTE 11/25: "I DO NOT FEEL MS. CHASES SYMPTOMS AND SHORTNESS OF BREATH ARE ALL RELATED TO UNDERLYING HEART FAILURE. SHE HAS A HISTORY OF COPD. SHE HAS ALSO LOST 6 POUNDS OVER THE LAST SEVERAL WEEKS. I DISCUSSED DEFIBRILLATOR AND LIFE VEST." TROP 0.190 / 0.185 / 0.157 RISKS: H/O HYPERTENSION H/O NONISCHEMIC CARDIOMYOPATHY H/O ESRD TREATMENT: CARDIAC MONITORING CARDIOLOGY CONSULTS SC HEPARIN (11/22-PRESENT) LOPRESSOR (11/23-PRESENT) ASPIRIN (11/24-PRESENT) ECHOCARDIOGRAM (This form is maintained as a part of the permanent medical record) 2014 [employer]. All Rights Reserved [email or web address] Office: [phone] [facility]
--- NOTE | 2017-11-25 20:51 | PDOC.PN ---
- Subjective Encounter Start Date: 11/25/17 Encounter Start Time: 11:00 - Objective Resuscitation Status: Resuscitation Status FULL:Full Resuscitation Vital Signs & Weight: Vital Signs (12 hours) Temp Pulse Resp BP Pulse Ox 11/25/17 18:39 103 H 16 97 11/25/17 15:00 98.5 F 101 H 18 104/55 L 96 11/25/17 14:34 84 15 95 11/25/17 11:53 97.7 F 105 H 18 90/53 L 11/25/17 10:21 89 15 97 Weight Weight 127 lb 14.4 oz I&O: 11/24/17 11/25/17 11/26/17 06:59 06:59 06:59 Intake Total 720 810 Output Total 1083 570 Balance -363 240 Result Diagrams: 11/26/17 05:11 11/26/17 05:11 Phys Exam - Physical Examination HEENT: PERRLA, moist MMs Neck: no nodes, no JVD mild lower lobes crackles Cardiovascular: RRR, no significant murmur Gastrointestinal: soft, non-tender Dx/Plan - Plan * . 1) sob: chf or pna 2) systolic heart failure 3) hypokalemia 4) elevated trops plan: pt has sob which is multifactoral. pt's ef is low 30-35% unable to put in AICD due to pt's current infection. will continue Levaquin for now. no acute changes on cxr. spoke with nephrology who was ok to discontinue vanco. pt on vanco for her PD cath infection. will cardiology aware of her elevated trops. pt is anuric, on PD dialysis will replace and recheck. Review of Systems - Review of Systems Eyes: negative: Pain, Vision Change, Conjunctivae Inflammation, Eyelid Inflammation, Redness, Other ENT: negative: Ear Pain, Ear Discharge, Nose Pain, Nose Discharge, Nose Congestion, Mouth Pain, Mouth Swelling, Throat Pain, Throat Swelling, Other Respiratory: negative: Cough, Dry, Shortness of Breath, Hemoptysis, SOB with Excertion, Pleuritic Pain, Sputum, Wheezing Cardiovascular: negative: chest pain, palpitations, orthopnea, paroxysmal nocturnal dyspnea, edema, light headedness, other Gastrointestinal: negative: Nausea, Vomiting, Abdominal Pain, Diarrhea, Constipation, Melena, Hematochezia, Other - Medications/Allergies Allergies/Adverse Reactions: Allergies Allergy/AdvReac Type Severity Reaction Status Date / Time codeine Allergy Verified 08/27/17 12:43 iodine Allergy Verified 08/27/17 12:43 Penicillins Allergy Verified 08/27/17 12:43 shellfish derived Allergy Verified 08/27/17 12:43 Medications: Current Medications Acetaminophen (Tylenol) 650 mg PO Q6H PRN PRN Reason: Headache/Fever or Pain Al Hydroxide/Mg Hydroxide (Maalox) 30 ml PO Q6H PRN PRN Reason: Heartburn or Indigestion Albuterol Sulfate (Ventolin) 2.5 mg NEB Q2H PRN PRN Reason: Wheezing Albuterol/Ipratropium (Duoneb) 3 ml NEB [id number] [facility] Last Admin: 11/26/17 14:03 Dose: 3 ml Aspirin (Ecotrin) 81 mg PO DAILY [facility] Last Admin: 11/26/17 09:32 Dose: 81 mg Benzonatate (Tessalon) 100 mg PO TID [facility] Last Admin: 11/26/17 16:33 Dose: 100 mg Benzonatate (Tessalon) 100 mg PO PRN PRN PRN Reason: Cough Bisacodyl (Dulcolax) 10 mg PO DAILYPRN PRN PRN Reason: Constipation Bismuth Subsalicylate (Pepto Bismol) 2 tab PO Q1H PRN PRN Reason: Diarrhea/Loose Stools Calcium Carbonate (Tums) 1,000 mg PO Q4H PRN PRN Reason: Heartburn or Indigestion Cholecalciferol (Vitamin D3) 2,000 units PO QPM [facility] Last Admin: 11/25/17 22:02 Dose: 2,000 units Cinacalcet (Sensipar) 60 mg PO HS [facility] Last Admin: 11/25/17 22:03 Dose: 60 mg Epoetin Alejo (Procrit) 7,500 units SC Q7D [facility] Last Admin: 11/24/17 15:45 Dose: 7,500 units Fluticasone Propionate (Flonase Nasal [place]) 0 gm NASAL BID [facility] Last Admin: 11/26/17 09:32 Dose: 1 spr Heparin Sodium (Porcine) (Heparin) 5,000 units SC BID [facility] Last Admin: 11/26/17 09:32 Dose: 5,000 units Hydroxyzine HCl (Atarax) 50 mg PO PRN PRN PRN Reason: Itching Levofloxacin 500 mg/ Device 100 mls @ 100 mls/hr IVPB Q2D@0900 [facility] Last Admin: 11/26/17 09:33 Dose: 100 mls Vancomycin HCl 1.25 gm/ Sodium (Chloride) 250 mls @ 166.667 mls/hr IVPB WILLCALL [facility] Vancomycin HCl 1 gm/ Device 200 mls @ 200 mls/hr IVPB WILLCALL [facility] Vancomycin HCl 750 mg/ Sodium (Chloride) 250 mls @ 250 mls/hr IVPB WILLCALL [facility] Vancomycin HCl 500 mg/ Sodium (Chloride) 100 mls @ 100 mls/hr IVPB WILLCALL [facility] Lactulose (Lactulose) 10 gm PO DAILY [facility] Last Admin: 11/26/17 09:33 Dose: Not Given Lorazepam (Ativan) 0.5 mg PO Q6HR [facility] Last Admin: 11/26/17 11:41 Dose: 0.5 mg Losartan Potassium (Cozaar) 100 mg PO DAILY [facility] Last Admin: 11/26/17 09:42 Dose: 100 mg Magnesium Hydroxide (Milk Of Magnesium) 30 ml PO DAILYPRN PRN PRN Reason: Constipation Metoprolol Tartrate (Lopressor) 25 mg PO BID [facility] Last Admin: 11/26/17 09:36 Dose: 25 mg Miscellaneous Medication (Pharmacy To Dose) 1 each IVPB PRN PRN PRN Reason: Pharmacy to dose Montelukast Sodium (Singulair) 10 mg PO QPM [facility] Last Admin: 11/25/17 22:03 Dose: 10 mg Hold Vancomycin For (Level >20) 0 each FS .AT DIALYSIS [facility] Ondansetron HCl (Zofran) 4 mg IVP Q6H PRN PRN Reason: Nausea/Vomiting Pantoprazole Sodium (Protonix) 40 mg PO DAILY [facility] Last Admin: 11/26/17 09:32 Dose: 40 mg Polyethylene Glycol (Miralax) 17 gm PO DAILY [facility] Last Admin: 11/26/17 09:34 Dose: Not Given Potassium Chloride (K-Dur) 40 meq PO QAM-[facility] Last Admin: 11/26/17 09:32 Dose: 40 meq Senna (Senokot) 2 tab PO HSPRN PRN PRN Reason: Constipation Sevelamer Carbonate (Renvela) 2,400 mg PO TID-[facility] Last Admin: 11/26/17 11:41 Dose: Not Given Sodium Chloride (Flush - Normal Saline) 10 ml IVF Q12HR [facility] Last Admin: 11/26/17 09:34 Dose: Not Given Sodium Chloride (Flush - Normal Saline) 10 ml IVF PRN PRN PRN Reason: Saline Flush Vitamin B Complex/Vit C/Folic Acid (Nephro-Zeenat Tablet) 1 tab PO DAILY [facility] Last Admin: 11/26/17 09:32 Dose: 1 tab
[2017-11-25] MEDS: Montelukast Sodium 10 mg Tablet PO SCH (22:03)
[2017-11-25] MEDS: Cinacalcet HCl 30 MG TAB PO SCH (22:03)
[2017-11-26] MEDS: Lorazepam 0.5 MG TAB PO SCH ×4 (00:56→18:41)
[2017-11-26 05:32] LABS: #Lymphocytes 0.7 thou/uL (1.20-3.40); #Monocytes 0.4 thou/uL (0.11-0.59); %Basophils 1.1 % (0.0-1.0); %Eosinophils 0.5 % (0.0-10.0); %Lymphocytes 16.6 % (21.0-51.0); %Monocytes 9.7 % (0.0-10.0); %Neutrophils 72.2 % (42.0-75.0); Mean Corpuscular HGB CONC 32.1 g/dL (32.0-36.0); Mean Corpuscular Hemoglobin 30.3 pg (27.0-31.0); Mean Corpuscular Volume 94.5 fl (81.0-99.0); Platelet Count 231 thou/uL (130-400); RBC Distribution Width 14.1 % (11.5-14.5); Red Blood Cell (RBC) Count 2.97 mill/uL (4.20-5.40); White Blood Cell (WBC) Count 4.1 thou/uL (4.8-10.8)
[2017-11-26 05:41] LABS: Anion Gap 11 mmol/L (10-20); BUN (Urea Nitrogen) 24 mg/dL (9.8-20.1); Calc. Creatinine Clearance 6 mL/min (70-130); Calcium 7.2 mg/dL (7.8-10.44); Carbon Dioxide 30 mmol/L (23-31); Chloride 95 mmol/L (98-107); Estimated GFR-MDRD 5; Glucose 86 mg/dL (80-115); Sodium 133 mmol/L (136-145)
[2017-11-26 05:44] LABS: Potassium 2.8 mmol/L (3.5-5.1)
[2017-11-26] MEDS ORDERED: Potassium Chloride 40 MEQ in Sodium Chloride 0.9% 250 ML 250 ML IVPB SCH (06:30)
[2017-11-26 08:22] LABS: Vancomycin, Random 27.4 ug/mL (See Comment)
--- NOTE | 2017-11-26 09:23 | PRG ---
DATE OF SERVICE: 11/26/2017 SUBJECTIVE: Ms. Espino is a 67-year-old white female with ESRD and currently on CCPD. She underwent peritoneal dialysis without any difficulty. She was initially admitted for shortness of breath. She has been evaluated by Cardiology and she was found to have a significantly decreased ejection fracti on. She has also been started on neb treatment which is improving the shortness of breath. No other complaints today. PHYSICAL EXAMINATION: VITAL SIGNS: Blood pressure 115/59, heart rate 90, respiratory rate 17, temperature 96.7, pulse ox 9 6%. GENERAL: Awake, alert, comfortable, not in distress. SKIN: Adequate turgor. HEENT: She has slightly pale conjunctivae, anicteric sclerae. NECK: No neck mass, no carotid bruits. Positive for cervical neck collar. LUNGS: Clear breath sounds. No wheezing, no crackles. HEART: Normal sinus rhythm. Grade 2/6 systolic murmur, no gallops or rubs. ABDOMEN: Globular, soft, nontender, no masses. EXTREMITIES: No edema. MEDICATIONS: 11/26/2017 - Reviewed. LABORATORY: 11/26/2017 - White count 4.1, hemoglobin 9, sodium 133, potassium 2.8, chloride 95, carb on dioxide 30, BUN 24, creatinine 7.96, calcium 7.2. ASSESSMENT AND PLAN: 1. End-stage renal disease. Continue current peritoneal dialysis. Tolerating said treatment. No c hanges will be made with the peritoneal dialysis. 2. Hypokalemia, p.r.n. potassium supplementation. The patient received IV KCl earlier. 3. Anemia, on weekly Epogen. 4. Shortness of breath, multifactorial etiology. Continue current management.
[2017-11-26] MEDS: Sevelamer Carbonate 800 MG TAB PO SCH ×3 (09:31→18:42)
[2017-11-26] MEDS: Benzonatate 100 MG CAP PO SCH ×3 (09:32→21:09)
[2017-11-26] MEDS: Aspirin 81 mg Enteric Coated Tablet PO SCH (09:32)
[2017-11-26] MEDS: Potassium Chloride 20 MEQ TAB PO SCH (09:32)
[2017-11-26] MEDS: Fluticasone Propionate Nasal Spray 16 gm Bottle NASAL SCH ×2 (09:32→21:11)
[2017-11-26] MEDS: Folic Acid/Vit B Comp W-C PO SCH (09:32)
[2017-11-26] MEDS: Heparin 5,000 UNITS/ML VIAL SC SCH ×2 (09:32→21:10)
[2017-11-26] MEDS: Polyethylene Glycol 3350 17 GM Packet PO SCH (09:34)
[2017-11-26] MEDS: Metoprolol Tartrate 25 MG TAB PO SCH ×2 (09:36→21:09)
[2017-11-26] MEDS: Losartan 25 MG TAB PO SCH (09:42)
[2017-11-26] MEDS ORDERED: VANCOMYCIN IVPB PRN (10:24)
[2017-11-26 17:08] LABS: Anion Gap 14 mmol/L (10-20); BUN (Urea Nitrogen) 26 mg/dL (9.8-20.1); Calc. Creatinine Clearance 6 mL/min (70-130); Calcium 7.4 mg/dL (7.8-10.44); Carbon Dioxide 27 mmol/L (23-31); Chloride 96 mmol/L (98-107); Estimated GFR-MDRD 5; Glucose 95 mg/dL (80-115); Potassium 3.9 mmol/L (3.5-5.1); Sodium 133 mmol/L (136-145)
--- NOTE | 2017-11-26 17:24 | PDOC.PN ---
- Subjective Encounter Start Date: 11/26/17 Encounter Start Time: 16:00 Subjective: pt up in chair no complains - Objective Resuscitation Status: Resuscitation Status FULL:Full Resuscitation Vital Signs & Weight: Vital Signs (12 hours) Temp Pulse Resp BP Pulse Ox 11/26/17 15:00 97.2 F L 100 18 95/52 L 96 11/26/17 14:03 90 16 94 L 11/26/17 11:09 103 H 18 99 11/26/17 11:00 97.8 F 100 16 93/54 L 95 11/26/17 08:00 96.7 F L 98 17 96 11/26/17 07:35 96.7 F L 98 17 115/59 L 96 11/26/17 06:55 86 16 96 Weight Weight 128 lb 1.6 oz I&O: 11/25/17 11/26/17 11/27/17 06:59 06:59 06:59 Intake Total 720 910 240 Output Total 1083 570 Balance -363 340 240 Result Diagrams: 11/26/17 05:11 11/26/17 16:39 Phys Exam - Physical Examination HEENT: PERRLA, moist MMs Neck: no nodes Respiratory: no wheezing Cardiovascular: RRR, no significant murmur Gastrointestinal: soft, non-tender Musculoskeletal: no edema Dx/Plan - Plan * . 1) sob: chf or pna 2) systolic heart failure 3) hypokalemia 4) elevated trops plan: pt has sob which is multifactoral. pt's ef is low 30-35% unable to put in AICD due to pt's current infection. will continue Levaquin for now. no acute changes on cxr. spoke with nephrology who was ok to discontinue vanco. pt on vanco for her PD cath infection. will cardiology aware of her elevated trops. pt is anuric, on PD dialysis will replace and recheck. pt will need physical therapy inpatient if she agrees or outpatient. pt has a neck brace on which causes her some anxiety and worsens her sob. Review of Systems - Review of Systems Eyes: negative: Pain, Vision Change, Conjunctivae Inflammation, Eyelid Inflammation, Redness, Other ENT: negative: Ear Pain, Ear Discharge, Nose Pain, Nose Discharge, Nose Congestion, Mouth Pain, Mouth Swelling, Throat Pain, Throat Swelling, Other Respiratory: negative: Cough, Dry, Shortness of Breath, Hemoptysis, SOB with Excertion, Pleuritic Pain, Sputum, Wheezing Cardiovascular: negative: chest pain, palpitations, orthopnea, paroxysmal nocturnal dyspnea, edema, light headedness, other Gastrointestinal: negative: Nausea, Vomiting, Abdominal Pain, Diarrhea, Constipation, Melena, Hematochezia, Other - Medications/Allergies Allergies/Adverse Reactions: Allergies Allergy/AdvReac Type Severity Reaction Status Date / Time codeine Allergy Verified 08/27/17 12:43 iodine Allergy Verified 08/27/17 12:43 Penicillins Allergy Verified 08/27/17 12:43 shellfish derived Allergy Verified 08/27/17 12:43 Medications: Current Medications Acetaminophen (Tylenol) 650 mg PO Q6H PRN PRN Reason: Headache/Fever or Pain Al Hydroxide/Mg Hydroxide (Maalox) 30 ml PO Q6H PRN PRN Reason: Heartburn or Indigestion Albuterol Sulfate (Ventolin) 2.5 mg NEB Q2H PRN PRN Reason: Wheezing Albuterol/Ipratropium (Duoneb) 3 ml NEB [id number] [facility] Last Admin: 11/26/17 14:03 Dose: 3 ml Aspirin (Ecotrin) 81 mg PO DAILY [facility] Last Admin: 11/26/17 09:32 Dose: 81 mg Benzonatate (Tessalon) 100 mg PO TID [facility] Last Admin: 11/26/17 16:33 Dose: 100 mg Benzonatate (Tessalon) 100 mg PO PRN PRN PRN Reason: Cough Bisacodyl (Dulcolax) 10 mg PO DAILYPRN PRN PRN Reason: Constipation Bismuth Subsalicylate (Pepto Bismol) 2 tab PO Q1H PRN PRN Reason: Diarrhea/Loose Stools Calcium Carbonate (Tums) 1,000 mg PO Q4H PRN PRN Reason: Heartburn or Indigestion Cholecalciferol (Vitamin D3) 2,000 units PO QPM [facility] Last Admin: 11/25/17 22:02 Dose: 2,000 units Cinacalcet (Sensipar) 60 mg PO HS [facility] Last Admin: 11/25/17 22:03 Dose: 60 mg Epoetin Alejo (Procrit) 7,500 units SC Q7D [facility] Last Admin: 11/24/17 15:45 Dose: 7,500 units Fluticasone Propionate (Flonase Nasal [place]) 0 gm NASAL BID [facility] Last Admin: 11/26/17 09:32 Dose: 1 spr Heparin Sodium (Porcine) (Heparin) 5,000 units SC BID [facility] Last Admin: 11/26/17 09:32 Dose: 5,000 units Hydroxyzine HCl (Atarax) 50 mg PO PRN PRN PRN Reason: Itching Lactulose (Lactulose) 10 gm PO DAILY [facility] Last Admin: 11/26/17 09:33 Dose: Not Given Levofloxacin (Levaquin) 500 mg PO 0600 [facility] Stop: 11/28/17 06:01 Lorazepam (Ativan) 0.5 mg PO Q6HR [facility] Last Admin: 11/26/17 11:41 Dose: 0.5 mg Losartan Potassium (Cozaar) 100 mg PO DAILY [facility] Last Admin: 11/26/17 09:42 Dose: 100 mg Magnesium Hydroxide (Milk Of Magnesium) 30 ml PO DAILYPRN PRN PRN Reason: Constipation Metoprolol Tartrate (Lopressor) 25 mg PO BID [facility] Last Admin: 11/26/17 09:36 Dose: 25 mg Miscellaneous Medication (Pharmacy To Dose) 1 each IVPB PRN PRN PRN Reason: Pharmacy to dose Montelukast Sodium (Singulair) 10 mg PO QPM [facility] Last Admin: 11/25/17 22:03 Dose: 10 mg Hold Vancomycin For (Level >20) 0 each FS .AT DIALYSIS [facility] Ondansetron HCl (Zofran) 4 mg IVP Q6H PRN PRN Reason: Nausea/Vomiting Pantoprazole Sodium (Protonix) 40 mg PO DAILY [facility] Last Admin: 11/26/17 09:32 Dose: 40 mg Polyethylene Glycol (Miralax) 17 gm PO DAILY [facility] Last Admin: 11/26/17 09:34 Dose: Not Given Potassium Chloride (K-Dur) 40 meq PO QAM-[facility] Last Admin: 11/26/17 09:32 Dose: 40 meq Senna (Senokot) 2 tab PO HSPRN PRN PRN Reason: Constipation Sevelamer Carbonate (Renvela) 2,400 mg PO TID-WM [facility] Last Admin: 11/26/17 11:41 Dose: Not Given Sodium Chloride (Flush - Normal Saline) 10 ml IVF Q12HR [facility] Last Admin: 11/26/17 09:34 Dose: Not Given Sodium Chloride (Flush - Normal Saline) 10 ml IVF PRN PRN PRN Reason: Saline Flush Vitamin B Complex/Vit C/Folic Acid (Nephro-Zeenat Tablet) 1 tab PO DAILY [facility] Last Admin: 11/26/17 09:32 Dose: 1 tab
[2017-11-26] MEDS: Montelukast Sodium 10 mg Tablet PO SCH (21:09)
[2017-11-26] MEDS: Cinacalcet HCl 30 MG TAB PO SCH (21:17)
[2017-11-27] MEDS: Lorazepam 0.5 MG TAB PO SCH ×4 (00:18→17:48)
[2017-11-27 05:36] LABS: Band 2 % (5-11); Eosinophils 1 % (0-10); Hemoglobin 9.4 g/dL (12.0-16.0); Lymphocytes 11 % (21-51); MDiff Complete? YES; Mean Corpuscular HGB CONC 31.8 g/dL (32.0-36.0); Mean Corpuscular Hemoglobin 30.3 pg (27.0-31.0); Mean Corpuscular Volume 95.3 fl (81.0-99.0); Mean Platelet Volume 7.7 fL (7.4-10.4); Monocytes 5 % (0-10); Neutrophil 81 % (42-75); PLT Morphology Comment Appears Adequate; Platelet Count 264 thou/uL (130-400); RBC Distribution Width 14.5 % (11.5-14.5); White Blood Cell (WBC) Count 4.6 thou/uL (4.8-10.8)
[2017-11-27 06:00] LABS: Anion Gap 12 mmol/L (10-20); BUN (Urea Nitrogen) 23 mg/dL (9.8-20.1); Calc. Creatinine Clearance 6 mL/min (70-130); Calcium 7.8 mg/dL (7.8-10.44); Carbon Dioxide 30 mmol/L (23-31); Chloride 95 mmol/L (98-107); Estimated GFR-MDRD 5; Glucose 85 mg/dL (80-115); Potassium 3.5 mmol/L (3.5-5.1); Sodium 133 mmol/L (136-145)
--- NOTE | 2017-11-27 08:51 | PRG ---
DATE OF SERVICE: 11/27/2017 RENAL MEDICINE SUBJECTIVE: Ms. Caba is feeling better with regards to the shortness of breath. It is improved, b ut she still has some baseline shortness of breath, no chest pain. OBJECTIVE: VITAL SIGNS: Blood pressure is 121/57, heart rate is 96, respiratory rate 18, temperature 97.8, and pulse ox 98%. GENERAL: Awake, alert, comfortable, not in distress. SKIN: Adequate turgor. HEENT: She has slightly pale conjunctivae, anicteric sclerae. NECK: No neck mass, no carotid bruits, no JVD. CHEST: No deformities. LUNGS: Clear breath sounds. No wheezing, no crackles. HEART: Normal sinus rhythm. No murmurs, no gallops, no rubs. ABDOMEN: Globular, soft, nontender, no masses. Positive for PD catheter. EXTREMITIES: No edema. Please note she has a cervical neck collar. MEDICATIONS: Medications of 11/27/2017 reviewed. LABORATORY DATA: Laboratories of 11/27/2017; white count 4.6, hemoglobin 9.4, and hematocrit 29.5. Sodium 133, potassium 3.5, chloride 95, carbon dioxide 30, BUN 23, creatinine 7.9, and calcium 7.8. ASSESSMENT AND PLAN: 1. End-stage renal disease, stable. Tolerating current continuous cycling peritoneal dialysis regim en. No changes in the peritoneal dialysis will be made. 2. Hypokalemia, much improved. 3. Shortness of breath, multifactorial etiology. She has decreased EF and may have underlying chron ic obstructive pulmonary disease. Continue neb treatment. The patient to be reevaluated by Cardiolo gy as an outpatient. 4. Anemia, continuing weekly Epogen.
[2017-11-27] MEDS: Potassium Chloride 20 MEQ TAB PO SCH (09:55)
[2017-11-27] MEDS: Sevelamer Carbonate 800 MG TAB PO SCH ×3 (09:56→17:08)
[2017-11-27] MEDS: Folic Acid/Vit B Comp W-C PO SCH (09:56)
[2017-11-27] MEDS: Aspirin 81 mg Enteric Coated Tablet PO SCH (09:56)
[2017-11-27] MEDS: Metoprolol Tartrate 25 MG TAB PO SCH (09:56)
[2017-11-27] MEDS: Fluticasone Propionate Nasal Spray 16 gm Bottle NASAL SCH ×2 (09:56→20:50)
[2017-11-27] MEDS: Benzonatate 100 MG CAP PO SCH ×3 (09:56→20:51)
[2017-11-27] MEDS: Heparin 5,000 UNITS/ML VIAL SC SCH ×2 (09:56→20:52)
[2017-11-27] MEDS: Losartan 25 MG TAB PO SCH (09:58)
[2017-11-27] MEDS: Polyethylene Glycol 3350 17 GM Packet PO SCH (09:58)
--- NOTE | 2017-11-27 10:02 | PQF ---
CLINICAL DOCUMENTATION IMPROVEMENT CLARIFICATION FORM: ICD-10 Updated PLEASE DO AN ADDENDUM TO THE PROGRESS NOTE WITH ANY DOCUMENTATION UPDATES OR ADDITIONS AND CARRY THROUGH TO DC SUMMARY. THANK YOU. DATE: 11/25/17 ATTN: DR. AGUILAR Please exercise your independent, professional judgment in responding to the clarification form. Clinical indicators are provided on the bottom of this form for your review Please check appropriate box(s) to clarify if the following diagnosis has been ruled in or ruled out: PNEUMONIA [ ] Ruled in diagnosis [ ] Continue to treat [ ] Resolved [ ] Ruled out diagnosis [ ] Cannot rule out diagnosis [ ] Other diagnosis [ ] Unable to determine In addition, please specify: Present on Admission (POA): [ ] Yes [ ] No [ x] Unable to determine For continuity of documentation, please document condition throughout progress notes and discharge summary. Thank You. CLINICAL INDICATORS - SIGNS / SYMPTOMS / LABS H&P 11/22: "PNEUMONIA, LIKELY HEALTHCARE-ASSOCIATED PNEUMONIA WITH THE PATIENT RECENTLY BEING IN THE HOSPITAL FOR APPROXIMATELY ABOUT A WEEK AGO." HOSPITALIST PROGRESS NOTE 11/23: "SHE IS ADMITTED WITH PNEUMONIA DIAGNOSIS, BUT WITH NO INFILTRATE AND NO WBC ELEVATION." WBC 4.0 LACTIC ACID 2.4 RISKS: RECENT HOSPITALIZATION TREATMENT: IV VANCOMYCIN (ER-PRESENT) IV LEVAQUIN (ER-PRESENT) DUONEBS (11/24-PRESENT) TESSALON (11/22-PRESENT) [employer] Lia[employer] Win[employer] (This form is maintained as a part of the permanent medical record) 2014 [employer]. All Rights Reserved [email or web address] [email or web address] Office: [phone] [facility]
--- NOTE | 2017-11-27 10:04 | PQF ---
CLINICAL DOCUMENTATION IMPROVEMENT CLARIFICATION FORM: ICD-10 Updated PLEASE DO AN ADDENDUM TO THE PROGRESS NOTE WITH ANY DOCUMENTATION UPDATES OR ADDITIONS AND CARRY THROUGH TO DC SUMMARY. THANK YOU. DATE: 11/27/17 ATTN: DR. AGUILAR Please exercise your independent, professional judgment in responding to the clarification form. Clinical indicators are provided on the bottom of this form for your review Please check appropriate box(s) to clarify if the following diagnosis has been ruled in or ruled out: NSTEMI [ ] Ruled in diagnosis [ ] Continue to treat [ ] Resolved [ ] Ruled out diagnosis [ ] Cannot rule out diagnosis [ ] Other diagnosis [ ] Unable to determine In addition, please specify: Present on Admission (POA): [ x ] Yes [ ] No [ ] Unable to determine For continuity of documentation, please document condition throughout progress notes and discharge summary. Thank You. CLINICAL INDICATORS - SIGNS / SYMPTOMS / LABS PROGRESS NOTE 11/23: "NSTEMI, ELEVATED TROP NOT TRENDING UP, LIKELY DEMAND ISCHEMIA WITH ESRD." CARDIOLOGY NOTE 11/24: "MS. CHASES SYMPTOMS CAN CERTAINLY BE MULTIFACTORIAL." CARIOLOGY NOTE 11/25: "I DO NOT FEEL MS. CHASES SYMPTOMS AND SHORTNESS OF BREATH ARE ALL RELATED TO UNDERLYING HEART FAILURE. SHE HAS A HISTORY OF COPD. SHE HAS ALSO LOST 6 POUNDS OVER THE LAST SEVERAL WEEKS. I DISCUSSED DEFIBRILLATOR AND LIFE VEST." TROP 0.190 / 0.185 / 0.157 RISKS: H/O HYPERTENSION H/O NONISCHEMIC CARDIOMYOPATHY H/O ESRD TREATMENT: CARDIAC MONITORING CARDIOLOGY CONSULT SC HEPARIN (11/22-PRESENT) LOPRESSOR (11/23-PRESENT) ASPIRIN (11/24-PRESENT) ECHOCARDIOGRAM (This form is maintained as a part of the permanent medical record) 2014 [employer]. All Rights Reserved [email or web address] Office: [phone] [facility]
[2017-11-27] MEDS: Cinacalcet HCl 30 MG TAB PO SCH (20:51)
[2017-11-27] MEDS: Montelukast Sodium 10 mg Tablet PO SCH (20:51)
--- NOTE | 2017-11-27 21:28 | PDOC.PN ---
- Subjective Encounter Start Date: 11/27/17 Encounter Start Time: 10:30 Subjective: pt up in bed no compalins of sob but still feels week on ambulating - Objective Resuscitation Status: Resuscitation Status FULL:Full Resuscitation Vital Signs & Weight: Vital Signs (12 hours) Temp Pulse Pulse Resp BP BP Pulse Ox 11/27/17 20:45 97.9 F 88 16 98/68 90 L 11/27/17 20:00 97.9 F 88 16 11/27/17 15:54 97.5 F L 76 16 94/53 L 94 L 11/27/17 13:35 87 85/49 L 11/27/17 11:08 79 16 98 11/27/17 10:54 98.1 F 77 16 111/51 L 97 Weight Weight 130 lb 11.2 oz I&O: 11/26/17 11/27/17 11/28/17 06:59 06:59 06:59 Intake Total 910 770 720 Output Total 570 190 581 Balance 340 580 139 Result Diagrams: 11/27/17 04:16 11/27/17 04:16 Phys Exam - Physical Examination HEENT: PERRLA Neck: no nodes Respiratory: no wheezing, no rales Cardiovascular: RRR, no significant murmur Gastrointestinal: soft, non-tender Musculoskeletal: edema present left arm swelling Neurological: non-focal Dx/Plan - Plan * . 1) sob: chf or pna 2) systolic heart failure 3) hypokalemia 4) elevated trops plan: pt has sob which is multifactoral. pt's ef is low 30-35% unable to put in AICD due to pt's current infection. will continue Levaquin for now. no acute changes on cxr. spoke with nephrology who was ok to discontinue vanco. pt on vanco for her PD cath infection. will cardiology aware of her elevated trops. pt is anuric, on PD dialysis will replace and recheck. pt will need physical therapy inpatient if she agrees or outpatient. pt has a neck brace on which causes her some anxiety and worsens her sob. pt's left arm doppler no dvt. Review of Systems - Review of Systems ENT: negative: Ear Pain, Ear Discharge, Nose Pain, Nose Discharge, Nose Congestion, Mouth Pain, Mouth Swelling, Throat Pain, Throat Swelling, Other Respiratory: negative: Cough, Dry, Shortness of Breath, Hemoptysis, SOB with Excertion, Pleuritic Pain, Sputum, Wheezing Cardiovascular: negative: chest pain, palpitations, orthopnea, paroxysmal nocturnal dyspnea, edema, light headedness, other - Medications/Allergies Allergies/Adverse Reactions: Allergies Allergy/AdvReac Type Severity Reaction Status Date / Time codeine Allergy Verified 08/27/17 12:43 iodine Allergy Verified 08/27/17 12:43 Penicillins Allergy Verified 08/27/17 12:43 shellfish derived Allergy Verified 08/27/17 12:43 Medications: Current Medications Acetaminophen (Tylenol) 650 mg PO Q6H PRN PRN Reason: Headache/Fever or Pain Al Hydroxide/Mg Hydroxide (Maalox) 30 ml PO Q6H PRN PRN Reason: Heartburn or Indigestion Albuterol Sulfate (Ventolin) 2.5 mg NEB Q2H PRN PRN Reason: Wheezing Albuterol/Ipratropium (Duoneb) 3 ml NEB [id number] [facility] Last Admin: 11/27/17 19:29 Dose: Not Given Aspirin (Ecotrin) 81 mg PO DAILY [facility] Last Admin: 11/27/17 09:56 Dose: 81 mg Benzonatate (Tessalon) 100 mg PO TID [facility] Last Admin: 11/27/17 20:51 Dose: 100 mg Benzonatate (Tessalon) 100 mg PO PRN PRN PRN Reason: Cough Bisacodyl (Dulcolax) 10 mg PO DAILYPRN PRN PRN Reason: Constipation Bismuth Subsalicylate (Pepto Bismol) 2 tab PO Q1H PRN PRN Reason: Diarrhea/Loose Stools Calcium Carbonate (Tums) 1,000 mg PO Q4H PRN PRN Reason: Heartburn or Indigestion Cholecalciferol (Vitamin D3) 2,000 units PO QPM [facility] Last Admin: 11/27/17 20:51 Dose: 2,000 units Cinacalcet (Sensipar) 60 mg PO HS [facility] Last Admin: 11/27/17 20:51 Dose: 60 mg Epoetin Alejo (Procrit) 7,500 units SC Q7D [facility] Last Admin: 11/24/17 15:45 Dose: 7,500 units Fluticasone Propionate (Flonase Nasal Larsen) 0 gm NASAL BID [facility] Last Admin: 11/27/17 20:50 Dose: 1 spr Heparin Sodium (Porcine) (Heparin) 5,000 units SC BID [facility] Last Admin: 11/27/17 20:52 Dose: 5,000 units Hydroxyzine HCl (Atarax) 50 mg PO PRN PRN PRN Reason: Itching Lactulose (Lactulose) 10 gm PO DAILY [facility] Last Admin: 11/27/17 09:57 Dose: Not Given Levofloxacin (Levaquin) 500 mg PO 0600 [facility] Stop: 11/28/17 06:01 Lorazepam (Ativan) 0.5 mg PO Q6HR [facility] Last Admin: 11/27/17 17:48 Dose: 0.5 mg Losartan Potassium (Cozaar) 100 mg PO DAILY [facility] Last Admin: 11/27/17 09:58 Dose: Not Given Magnesium Hydroxide (Milk Of Magnesium) 30 ml PO DAILYPRN PRN PRN Reason: Constipation Metoprolol Tartrate (Lopressor) 25 mg PO BID [facility] Last Admin: 11/27/17 09:56 Dose: 25 mg Montelukast Sodium (Singulair) 10 mg PO QPM [facility] Last Admin: 11/27/17 20:51 Dose: 10 mg Ondansetron HCl (Zofran) 4 mg IVP Q6H PRN PRN Reason: Nausea/Vomiting Pantoprazole Sodium (Protonix) 40 mg PO DAILY [facility] Last Admin: 11/27/17 09:56 Dose: 40 mg Polyethylene Glycol (Miralax) 17 gm PO DAILY [facility] Last Admin: 11/27/17 09:58 Dose: Not Given Potassium Chloride (K-Dur) 40 meq PO QAM-WM [facility] Last Admin: 11/27/17 09:55 Dose: 40 meq Senna (Senokot) 2 tab PO HSPRN PRN PRN Reason: Constipation Sevelamer Carbonate (Renvela) 2,400 mg PO TID-WM [facility] Last Admin: 11/27/17 17:08 Dose: 2,400 mg Sodium Chloride (Flush - Normal Saline) 10 ml IVF Q12HR [facility] Last Admin: 11/27/17 20:59 Dose: 10 ml Sodium Chloride (Flush - Normal Saline) 10 ml IVF PRN PRN PRN Reason: Saline Flush Vitamin B Complex/Vit C/Folic Acid (Nephro-Zeenat Tablet) 1 tab PO DAILY [facility] Last Admin: 11/27/17 09:56 Dose: 1 tab
[2017-11-28] MEDS: Lorazepam 0.5 MG TAB PO SCH ×5 (00:22→23:13)
[2017-11-28] MEDS: Metoprolol Tartrate 25 MG TAB PO SCH ×4 (00:30→20:52)
[2017-11-28 05:41] LABS: #Lymphocytes 0.8 thou/uL (1.20-3.40); #Monocytes 0.4 thou/uL (0.11-0.59); #Neutrophils 3.4 thou/uL (1.40-6.50); %Eosinophils 0.8 % (0.0-10.0); %Lymphocytes 16.2 % (21.0-51.0); %Monocytes 9.1 % (0.0-10.0); %Neutrophils 72.8 % (42.0-75.0); Hemoglobin 9.3 g/dL (12.0-16.0); Mean Corpuscular HGB CONC 30.7 g/dL (32.0-36.0); Mean Corpuscular Hemoglobin 28.6 pg (27.0-31.0); Mean Corpuscular Volume 93.2 fl (81.0-99.0); Mean Platelet Volume 7.4 fL (7.4-10.4); Platelet Count 269 thou/uL (130-400); RBC Distribution Width 14.4 % (11.5-14.5); Red Blood Cell (RBC) Count 3.26 mill/uL (4.20-5.40); White Blood Cell (WBC) Count 4.7 thou/uL (4.8-10.8)
[2017-11-28 05:52] LABS: Anion Gap 12 mmol/L (10-20); BUN (Urea Nitrogen) 22 mg/dL (9.8-20.1); Calc. Creatinine Clearance 6 mL/min (70-130); Calcium 7.8 mg/dL (7.8-10.44); Carbon Dioxide 29 mmol/L (23-31); Chloride 96 mmol/L (98-107); Estimated GFR-MDRD 5; Glucose 98 mg/dL (80-115); Sodium 134 mmol/L (136-145)
--- NOTE | 2017-11-28 08:38 | RAD ---
PORTABLE UPRIGHT CHEST 1 VIEW: HISTORY: Shortness of breath. COMPARISON: 11/22/17. FINDINGS: Left ICD. Endostent changes are noted of the ascending aorta root region. No confluent pneumonia or overt edema. No pneumothorax. Appearance is stable. IMPRESSION: Stable postoperative changes. Left implantable cardioverter defibrillator. No significant acute int rathoracic disease. POS: [facility]
[2017-11-28] MEDS ORDERED: Potassium Chloride 20 MEQ TAB PO SCH (08:45)
--- NOTE | 2017-11-28 08:50 | PRG ---
DATE OF SERVICE: 11/28/2017 SUBJECTIVE: Ms. Espino is an 67-year-old white female with ESRD and currently tolerating her peritone al dialysis regimen. I have changed her PD regimen to alternating 1.5 and 2.5% to pull a little more fluid. We pulled about 750 mL of fluid overnight. Her shortness of breath is improving over time. Awaiting rehab evaluation with this patient. No other complaints. PHYSICAL EXAMINATION: VITAL SIGNS: Blood pressure 117/65, heart rate 75, respiratory rate 17, temperature 97.6, pulse ox 9 8%. GENERAL: Awake, alert, sitting comfortable. SKIN: Adequate turgor. HEENT: Patient has pinkish conjunctivae, anicteric sclerae. NECK: No neck mass, no carotid bruits, no JVD. Positive for cervical neck collar. LUNGS: Clear breath sounds. HEART: Normal sinus rhythm. No murmurs, no gallops, no rubs. ABDOMEN: Globular, soft, nontender, no masses. EXTREMITIES: No edema, no deformities. Positive for PD catheter in the abdomen. MEDICATIONS: Medications of 11/28/2017 was reviewed. LABORATORY DATA: Laboratories of 11/28/2017; white count 4.7, hemoglobin 9.3, hematocrit 30.3. Sodi um 134, potassium 3, chloride 96, carbon dioxide 29, BUN 22, creatinine 8.13, calcium 7.8. ASSESSMENT AND PLAN: 1. Hypokalemia. Continue potassium supplementation replacement. Currently on K-Dur at 40 mEq q.a.m . If needed, we can increase this in the next following days. We will be rechecking a base met. 2. End-stage renal disease, stable. Tolerating current continuous cycling peritoneal dialysis regim en. Using 1.5 alternating with 2.5% PD solution. 3. Shortness of breath, multifactorial. Recent diagnosis of decreased EF of about 30%-35%. Maxing out fluid removal only as tolerated. 4. Chronic anemia, on weekly Epogen. Agree with current management.
[2017-11-28] MEDS: Polyethylene Glycol 3350 17 GM Packet PO SCH ×2 (09:14→09:26)
[2017-11-28] MEDS: Fluticasone Propionate Nasal Spray 16 gm Bottle NASAL SCH ×2 (09:14→20:52)
[2017-11-28] MEDS: Potassium Chloride 20 MEQ TAB PO SCH (09:16)
[2017-11-28] MEDS: Losartan 25 MG TAB PO SCH (09:16)
[2017-11-28] MEDS: Folic Acid/Vit B Comp W-C PO SCH (09:17)
[2017-11-28] MEDS: Sevelamer Carbonate 800 MG TAB PO SCH ×3 (09:17→16:22)
[2017-11-28] MEDS: Heparin 5,000 UNITS/ML VIAL SC SCH ×2 (09:18→20:53)
[2017-11-28] MEDS: Benzonatate 100 MG CAP PO SCH ×3 (09:18→20:53)
[2017-11-28] MEDS: Aspirin 81 mg Enteric Coated Tablet PO SCH (09:18)
--- NOTE | 2017-11-28 15:43 | PDOC.PN ---
- Subjective Encounter Start Date: 11/28/17 Encounter Start Time: 13:00 Subjective: pt up in chair no complains - Objective Resuscitation Status: Resuscitation Status FULL:Full Resuscitation Vital Signs & Weight: Vital Signs (12 hours) Temp Pulse Pulse Resp BP BP Pulse Ox 11/28/17 14:32 102 H 16 11/28/17 11:41 78 16 11/28/17 09:41 83 112/53 L 11/28/17 09:00 98.6 F 86 18 84/50 L 95 11/28/17 08:00 98.6 F 86 18 95 11/28/17 07:24 75 16 95 11/28/17 05:00 97.6 F 75 17 117/65 98 Weight Weight 135 lb 12.8 oz I&O: 11/27/17 11/28/17 11/29/17 06:59 06:59 06:59 Intake Total 770 1120 480 Output Total 190 581 Balance 580 539 480 Result Diagrams: 11/28/17 04:11 11/28/17 04:11 Phys Exam - Physical Examination HEENT: PERRLA Neck: no nodes, no JVD Dx/Plan - Plan 1) sob: chf or pna 2) systolic heart failure 3) hypokalemia 4) elevated trops plan: pt has sob which is multifactoral. pt's ef is low 30-35% unable to put in AICD due to pt's current infection. will continue Levaquin for now. no acute changes on cxr. spoke with nephrology who was ok to discontinue vanco. pt on vanco for her PD cath infection. will cardiology aware of her elevated trops. pt is anuric, on PD dialysis will replace and recheck. pt will need physical therapy inpatient if she agrees or outpatient. pt has a neck brace on which causes her some anxiety and worsens her sob. pt's left arm doppler no dvt. pt has completed her abx 11/28. discharged to inpatient when bed available * . Review of Systems - Review of Systems Respiratory: negative: Cough, Dry, Shortness of Breath, Hemoptysis, SOB with Excertion, Pleuritic Pain, Sputum, Wheezing Cardiovascular: negative: chest pain, palpitations, orthopnea, paroxysmal nocturnal dyspnea, edema, light headedness, other Gastrointestinal: negative: Nausea, Vomiting, Abdominal Pain, Diarrhea, Constipation, Melena, Hematochezia, Other - Medications/Allergies Allergies/Adverse Reactions: Allergies Allergy/AdvReac Type Severity Reaction Status Date / Time codeine Allergy Verified 08/27/17 12:43 iodine Allergy Verified 08/27/17 12:43 Penicillins Allergy Verified 08/27/17 12:43 shellfish derived Allergy Verified 08/27/17 12:43 Medications: Current Medications Acetaminophen (Tylenol) 650 mg PO Q6H PRN PRN Reason: Headache/Fever or Pain Al Hydroxide/Mg Hydroxide (Maalox) 30 ml PO Q6H PRN PRN Reason: Heartburn or Indigestion Albuterol Sulfate (Ventolin) 2.5 mg NEB Q2H PRN PRN Reason: Wheezing Albuterol/Ipratropium (Duoneb) 3 ml NEB [id number] [facility] Last Admin: 11/28/17 14:32 Dose: 3 ml Aspirin (Ecotrin) 81 mg PO DAILY [facility] Last Admin: 11/28/17 09:18 Dose: 81 mg Benzonatate (Tessalon) 100 mg PO TID [facility] Last Admin: 11/28/17 09:18 Dose: 100 mg Benzonatate (Tessalon) 100 mg PO PRN PRN PRN Reason: Cough Bisacodyl (Dulcolax) 10 mg PO DAILYPRN PRN PRN Reason: Constipation Bismuth Subsalicylate (Pepto Bismol) 2 tab PO Q1H PRN PRN Reason: Diarrhea/Loose Stools Calcium Carbonate (Tums) 1,000 mg PO Q4H PRN PRN Reason: Heartburn or Indigestion Cholecalciferol (Vitamin D3) 2,000 units PO QPM [facility] Last Admin: 11/27/17 20:51 Dose: 2,000 units Cinacalcet (Sensipar) 60 mg PO HS [facility] Last Admin: 11/27/17 20:51 Dose: 60 mg Epoetin Alejo (Procrit) 7,500 units SC Q7D [facility] Last Admin: 11/24/17 15:45 Dose: 7,500 units Fluticasone Propionate (Flonase Nasal [place]) 0 gm NASAL BID [facility] Last Admin: 11/28/17 09:14 Dose: 1 spr Heparin Sodium (Porcine) (Heparin) 5,000 units SC BID [facility] Last Admin: 03/15/18 09:18 Dose: 5,000 units Hydroxyzine HCl (Atarax) 50 mg PO PRN PRN PRN Reason: Itching Lactulose (Lactulose) 10 gm PO DAILY [facility] Last Admin: 11/28/17 09:25 Dose: Not Given Lorazepam (Ativan) 0.5 mg PO Q6HR [facility] Last Admin: 11/28/17 06:21 Dose: 0.5 mg Losartan Potassium (Cozaar) 100 mg PO DAILY [facility] Last Admin: 11/28/17 09:16 Dose: 100 mg Magnesium Hydroxide (Milk Of Magnesium) 30 ml PO DAILYPRN PRN PRN Reason: Constipation Metoprolol Tartrate (Lopressor) 25 mg PO BID [facility] Last Admin: 11/28/17 09:17 Dose: 25 mg Montelukast Sodium (Singulair) 10 mg PO QPM [facility] Last Admin: 11/27/17 20:51 Dose: 10 mg Ondansetron HCl (Zofran) 4 mg IVP Q6H PRN PRN Reason: Nausea/Vomiting Pantoprazole Sodium (Protonix) 40 mg PO DAILY [facility] Last Admin: 11/28/17 09:18 Dose: 40 mg Polyethylene Glycol (Miralax) 17 gm PO DAILY [facility] Last Admin: 11/28/17 09:26 Dose: Not Given Potassium Chloride (K-Dur) 40 meq PO QAM[facility] Last Admin: 11/28/17 09:16 Dose: 40 meq Senna (Senokot) 2 tab PO HSPRN PRN PRN Reason: Constipation Sevelamer Carbonate (Renvela) 2,400 mg PO TID-WM [facility] Last Admin: 11/28/17 09:17 Dose: 2,400 mg Sodium Chloride (Flush - Normal Saline) 10 ml IVF Q12HR [facility] Last Admin: 11/28/17 09:18 Dose: 10 ml Sodium Chloride (Flush - Normal Saline) 10 ml IVF PRN PRN PRN Reason: Saline Flush Vitamin B Complex/Vit C/Folic Acid (Nephro-Zeenat Tablet) 1 tab PO DAILY [facility] Last Admin: 11/28/17 09:17 Dose: 1 tab
[2017-11-28] MEDS: Cinacalcet HCl 30 MG TAB PO SCH (20:53)
[2017-11-28] MEDS: Montelukast Sodium 10 mg Tablet PO SCH (20:53)
[2017-11-29 04:37] LABS: #Basophils 0.1 thou/uL (0.0-0.2); #Lymphocytes 0.7 thou/uL (1.20-3.40); #Monocytes 0.6 thou/uL (0.11-0.59); #Neutrophils 2.7 thou/uL (1.40-6.50); %Basophils 1.4 % (0.0-1.0); %Eosinophils 0.8 % (0.0-10.0); %Lymphocytes 17.2 % (21.0-51.0); %Monocytes 13.9 % (0.0-10.0); %Neutrophils 66.6 % (42.0-75.0); Hemoglobin 9.4 g/dL (12.0-16.0); Mean Corpuscular HGB CONC 31.5 g/dL (32.0-36.0); Mean Corpuscular Hemoglobin 29.4 pg (27.0-31.0); Mean Corpuscular Volume 93.4 fl (81.0-99.0); Platelet Count 270 thou/uL (130-400); RBC Distribution Width 14.4 % (11.5-14.5); Red Blood Cell (RBC) Count 3.21 mill/uL (4.20-5.40); White Blood Cell (WBC) Count 4.1 thou/uL (4.8-10.8)
[2017-11-29 05:00] LABS: Anion Gap 10 mmol/L (10-20); BUN (Urea Nitrogen) 22 mg/dL (9.8-20.1); Calc. Creatinine Clearance 6 mL/min (70-130); Calcium 7.9 mg/dL (7.8-10.44); Carbon Dioxide 30 mmol/L (23-31); Chloride 98 mmol/L (98-107); Estimated GFR-MDRD 5; Glucose 91 mg/dL (80-115); Potassium 3.5 mmol/L (3.5-5.1); Sodium 134 mmol/L (136-145)
[2017-11-29] MEDS: Lorazepam 0.5 MG TAB PO SCH ×2 (06:02→11:06)
[2017-11-29] MEDS: Benzonatate 100 MG CAP PO SCH (10:51)
[2017-11-29] MEDS: Potassium Chloride 20 MEQ TAB PO SCH (10:52)
[2017-11-29] MEDS: Losartan 25 MG TAB PO SCH (10:52)
[2017-11-29] MEDS: Folic Acid/Vit B Comp W-C PO SCH (10:52)
[2017-11-29] MEDS: Metoprolol Tartrate 25 MG TAB PO SCH (10:53)
[2017-11-29] MEDS: Fluticasone Propionate Nasal Spray 16 gm Bottle NASAL SCH (10:53)
[2017-11-29] MEDS: Aspirin 81 mg Enteric Coated Tablet PO SCH (10:53)
[2017-11-29] MEDS: Heparin 5,000 UNITS/ML VIAL SC SCH (10:53)
[2017-11-29] MEDS: Sevelamer Carbonate 800 MG TAB PO SCH ×2 (10:55→11:06)
[2017-11-29] MEDS: Polyethylene Glycol 3350 17 GM Packet PO SCH (10:56)
[2017-11-29 22:39] VITALS: BP 112/76; TEMP 98.9
--- NOTE | 2017-12-02 15:03 | DIS ---
DATE OF ADMISSION: 11/22/2017 DATE OF DISCHARGE: 11/29/2017 PRIMARY CARE PHYSICIAN: Dr. Janes Sanchez CONSULTATIONS: Nephrology and Cardiology. DISCHARGE DIAGNOSES: 1. Shortness of breath, possibly congestive heart failure versus pneumonia. 2. Acute on chronic systolic heart failure. 3. Hypokalemia. 4. Elevated troponins. DISCHARGE MEDICATIONS: Folic acid 1 tab p.o. daily, Sensipar 60 mg p.o. at bedtime, vitamin D3 2000 units q.p.m., aspirin 81 mg daily, Renvela 2400 mg p.o. t.i.d., MiraLax 17 grams p.o. daily, Proton ix 40 mg daily, Lopressor 25 mg p.o. b.i.d., Lorazepam 0.5 mg q.6h., Tramadol 1-2 tablets p.o. p.r. n., Singulair 10 mg 2 p.o. q.p.m., Cozaar 100 mg p.o. daily. DuoNeb q.4 hours p.r.n., Dulcolax 10 mg p.o. daily, calcium carbonate 1000 mg p.o. q.4h., tramadol 1-2 q.4h. p.r.n. HOSPITAL COURSE: The patient is a very pleasant 67-year-old female with history of hypertension, end -stage renal disease on peritoneal dialysis and also systolic heart failure with an EF of 30-35%, who initially presented to the hospital with the presence of worsening shortness of breath and cough. T he patient at that time initially was treated with IV broad spectrum IV antibiotics for possible pneu monia. However, upon further evaluation, she had no elevated leukocytosis, neither did she have any infiltrate that was visible on the chest x-ray. The patient did have a neck brace for a fall that hever craven had sustained in the past and had to keep on the neck brace given her mild cervical fracture which was inoperable. The patient initially at the hospital, was treated for pneumonia. Her antibiotics w ere deescalated to only Levaquin. The patient also was seen by Cardiology given her EF of 30-35% for possible AICD. However, at that time she was unable to undergo insertion of the AICD given her poss ible pneumonia and also she was recently on vancomycin for a peritoneal dialysis catheter infection. I did speak with Nephrology in regards to her PD catheter, vancomycin dosing and the duration of the vancomycin. Nephrology stated it was okay to discontinue the vancomycin for her peritoneal dialysis catheter. The patient continued to get Levaquin for about 7-8 days. She continued to improve throu ghout the hospital stay. The patient overall had become very weak and was discharged to inpatient re hab. Cardiology did see the patient in regard to AICD and recommended follow up with them once her i nfection was cleared for placement of the AICD. Upon discharge, the patient was able to ambulate wit h some assistance, not very far. She also did have some use of oxygen on ambulation. The patient wa s discharged to inpatient rehabilitation.
--- NOTE | 2017-12-05 09:47 | PQF ---
YARY GUILLEN LESVIA LÓPEZ [id number] [facility] [id number] CLINICAL DOCUMENTATION IMPROVEMENT CLARIFICATION FORM: ICD-10 Updated PLEASE DO AN ADDENDUM TO THE PROGRESS NOTE WITH ANY DOCUMENTATION UPDATES OR ADDITIONS AND CARRY THROUGH TO DC SUMMARY. THANK YOU. DATE: 11/25/17 ATTN: DR. AGUILAR Please exercise your independent, professional judgment in responding to the clarification form. Clinical indicators are provided on the bottom of this form for your review Please check appropriate box(es): [ ] Sepsis due to: (Pna, UTI, gangrenous gall bladder, etc.) Due to: [ ] Device (please specify) [ ] Implant [ ] Graft [ ] Infusion [ ] SIRS due to non-infectious process (please specify etiology) [ ] with organ dysfunction [ ] without organ dysfunction [ ] Severe sepsis with acute organ dysfunction of: (Examples: respiratory failure, encephalopathy, acute kidney failure, other) [ ] Septic Shock [ ] Localized infection without sepsis [ ] Other diagnosis [x ] Unable to determine In addition, please specify: Present on Admission (POA): [ ] Yes [ ] No [ x] Unable to determine For continuity of documentation, please document condition throughout progress notes and discharge summary. Thank You. CLINICAL INDICATORS - SIGNS / SYMPTOMS / LABS ER NOTE: "SEPSIS" BP 75/62 PULSE 111 WBC 4.0 LACTIC ACID 2.4 RISKS: PNEUMONIA TREATMENT: IV VANCOMYCIN (ER-PRESENT) IV LEVAQUIN (ER-PRESENT) BLOOD CULTURES CARDIAC MONITORING THANK YOU, JANIA (This form is maintained as a part of the permanent medical record) 2014 [employer]. All Rights Reserved [email or web address] [email or web address] Office: [phone] [facility]
--- NOTE | 2017-12-05 09:48 | PQF ---
YARY GUILLEN KARISHMA [id number] [facility]-261 [id number] CLINICAL DOCUMENTATION IMPROVEMENT CLARIFICATION FORM: ICD-10 Updated PLEASE DO AN ADDENDUM TO THE PROGRESS NOTE WITH ANY DOCUMENTATION UPDATES OR ADDITIONS AND CARRY THROUGH TO DC SUMMARY. THANK YOU. DATE: 11/25/17 ATTN: DR. AGUILAR Please exercise your independent, professional judgment in responding to the clarification form. Clinical indicators are provided on the bottom of this form for your review Please check appropriate box(s) to clarify if the following diagnosis has been ruled in or ruled out: NSTEMI [ ] Ruled in diagnosis [ ] Continue to treat [ ] Resolved [ ] Ruled out diagnosis [ ] Cannot rule out diagnosis [ ] Other diagnosis [ ] Unable to determine In addition, please specify: Present on Admission (POA): [ ] Yes [ ] No [ ] Unable to determine For continuity of documentation, please document condition throughout progress notes and discharge summary. Thank You. CLINICAL INDICATORS - SIGNS / SYMPTOMS / LABS PROGRESS NOTE 11/23: "NSTEMI, ELEVATED TROP NOT TRENDING UP, LIKELY DEMAND ISCHEMIA WITH ESRD." CARDIOLOGY NOTE 11/24: "MS. CHASES SYMPTOMS CAN CERTAINLY BE MULTIFACTORIAL." CARIOLOGY NOTE 11/25: "I DO NOT FEEL MS. CHASES SYMTPOMS AND SHORTNESS OF BREATH ARE ALL RELATED TO UNDERLYING HEART FAILURE. SHE HAS A HISTORY OF COPD. SHE HAS ALSO LOST 6 POUNDS OVER THE LAST SEVERAL WEEKS. I DISCUSSED DEFIBRILLATOR AND LIFE VEST." TROP 0.190 / 0.185 / 0.157 RISKS: H/O HYPERTENSION H/O NONISCHEMIC CARDIOMYOPATHY H/O ESRD' TREATMENT: CARDIAC MONITORING CARDIOLOGY CONSULT SC HEPARIN (11/22-PRESENT) LOPRESSOR (11/23-PRESENT) ASPIRIN (11/24-PRESENT) ECHOCARDIOGRAM THANK YOU, JANIA (This form is maintained as a part of the permanent medical record) 2015 [employer]. All Rights Reserved [email or web address] [email or web address] Office: [phone] [facility]
== END 2017-11-29 15:10 | DRG 280 ==
LOC: ERS 13:29 → 2NO 16:05
PROVIDERS: ADMIT Internal Medicine; ATTEND Internal Medicine
PROC: 5A1D80Z Performance of Urinary Filtration, Prolonged Intermittent, 6-18 hours Per Day (ICD-10-PCS; 2017-11-22)
PROC: 5A1D80Z Performance of Urinary Filtration, Prolonged Intermittent, 6-18 hours Per Day (ICD-10-PCS; 2017-11-23)
PROC: 5A1D80Z Performance of Urinary Filtration, Prolonged Intermittent, 6-18 hours Per Day (ICD-10-PCS; 2017-11-24)
PROC: 5A1D80Z Performance of Urinary Filtration, Prolonged Intermittent, 6-18 hours Per Day (ICD-10-PCS; principal; 2017-11-25)
PROC: 5A1D80Z Performance of Urinary Filtration, Prolonged Intermittent, 6-18 hours Per Day (ICD-10-PCS; 2017-11-27)
DX: I13.2 Hypertensive heart and chronic kidney disease with heart failure and with stage 5 chronic kidney disease, or end stage renal disease (principal); I21.A1 Myocardial infarction type 2; N18.6 End stage renal disease; I42.9 Cardiomyopathy, unspecified; I50.23 Acute on chronic systolic (congestive) heart failure; E87.1 Hypo-osmolality and hyponatremia; J44.9 Chronic obstructive pulmonary disease, unspecified; E87.6 Hypokalemia; Z87.891 Personal history of nicotine dependence; F41.8 Other specified anxiety disorders; E78.5 Hyperlipidemia, unspecified; I25.10 Atherosclerotic heart disease of native coronary artery without angina pectoris; Z99.2 Dependence on renal dialysis; D63.1 Anemia in chronic kidney disease; Z95.2 Presence of prosthetic heart valve
CPT/HCPCS: 36415; 71045; 80048; 80053; 80202; 82553; 83605; 83735; 83880; 84145; 84484; 85007; 85025; 85027; 87040; 90945; 93005; 93306; 93798; 94640; 96361; 96365; 96375; A4216; G0257; G8978-GP-CK; G8979-GP-CI; J1644; J1956; J2060; J3370; J3480; J7050; J7620; Q4081

== ENCOUNTER 2017-12-19 08:09 | Outpatient (CLI) | payer MEDICARE, BC ==
--- NOTE | 2017-12-19 10:50 | RAD ---
SIX VIEWS CERVICAL SPINE: 12/19/2017 HISTORY: Neck pain. Follow-up evaluation from a fracture secondary to a fall. FINDINGS: The C1 to the cervicothoracic junction is seen on the lateral and Swimmer's views of the cervical spi ne. Multilevel degenerative changes are seen with narrowing of the intervertebral disk spaces at all levels with prominent osteophyte formation at the C5-C6 and C6-C7 levels. There is a question of fu sunny of the posterior elements at the C2-C3 and C3-C4 levels. The odontoid is not well visualized on this examination, primarily due to overlying structures. In addition, the anterior arch of C1, in r elation to the odontoid, is also mostly obscured and not well evaluated on this study. The vertebral body heights do appear to be within normal limits. There is trace anterolisthesis of C3 on C4. Pre vertebral soft tissues are within normal limits. A cervical spine collar is noted in place. A dual lead left subclavian cardiac pacemaker device is partially imaged. IMPRESSION: 1. Limited examination, as described above, and the odontoid, as well as the articulation of the odo ntoid with the anterior arch of C1 is not well visualized on this study. No obvious fracture is appr eciated on this exam. Correlation with prior studies demonstrating fracture is recommended. 2. Trace anterolisthesis of C3 on C4; however, there does appear to be fusion of the posterior eleme nts at the C2-C3 and C3-C4 levels. 3. Multilevel degenerative changes. 4. Straightening of the normal cervical lordotic curvature, which could be related to positioning an d/or muscle spasm. POS: [facility]
== END 2017-12-19 08:10 | disposition home or self-care (01) ==
LOC: TBSIIMAG 08:09
PROVIDERS: ATTEND Neurological Surgery
DX: M54.2 Cervicalgia (principal); M47.892 Other spondylosis, cervical region; M48.8X2 Other specified spondylopathies, cervical region
CPT/HCPCS: 72040

== ENCOUNTER 2017-12-29 21:01 | Emergency (ER) | payer MEDICARE, BC ==
[2017-12-29 21:47] LABS: Hemoglobin 11.3 g/dL (12.0-16.0); Mean Corpuscular Hemoglobin 30.3 pg (27.0-31.0); Mean Corpuscular Volume 91.8 fl (81.0-99.0); Mean Platelet Volume 6.9 fL (7.4-10.4); Platelet Count 285 thou/uL (130-400); RBC Distribution Width 15.9 % (11.5-14.5); Red Blood Cell (RBC) Count 3.71 mill/uL (4.20-5.40); White Blood Cell (WBC) Count 12.7 thou/uL (4.8-10.8)
[2017-12-29 22:00] LABS: ALT (SGPT) 14 U/L (8-55); AST (SGOT) 16 U/L (5-34); Albumin 2.7 g/dL (3.4-4.8); Alkaline Phosphatase 86 U/L (40-150); Anion Gap 18 mmol/L (10-20); BUN (Urea Nitrogen) 38 mg/dL (9.8-20.1); Bilirubin, Total 0.2 mg/dL (0.2-1.2); Calc. Creatinine Clearance 0 mL/min (70-130); Calcium 8.7 mg/dL (7.8-10.44); Carbon Dioxide 26 mmol/L (23-31); Chloride 95 mmol/L (98-107); Estimated GFR-MDRD 5; Globulin 2.9 g/dL (2.4-3.5); Glucose 100 mg/dL (80-115); Protein, Total 5.6 g/dL (6.0-8.3); Sodium 135 mmol/L (136-145)
[2017-12-29 22:05] LABS: CKMB 2.6 ng/mL (0-6.6); Troponin I 0.033 ng/mL (< 0.028)
[2017-12-29 22:10] LABS: Band 15 % (5-11); Lymphocytes 5 % (21-51); MDiff Complete? YES; Monocytes 8 % (0-10); Neutrophil 72 % (42-75)
--- NOTE | 2017-12-29 22:56 | RAD ---
SINGLE VIEW OF THE CHEST: Comparison: 11-28-17 History: Palpitations, chest pain. FINDINGS: Single view of the chest shows a normal sized cardiomediastinal silhouette. The pacemaker is unchange d in position. There is no evidence of consolidation, mass, or pleural effusion. IMPRESSION: No evidence of acute cardiopulmonary disease. POS: [facility]
[2017-12-29] MEDS ORDERED: Ondansetron ODT 4 MG TAB ONE (23:14)
== END 2017-12-30 00:40 | disposition home or self-care (01) ==
LOC: ERS 21:01
DX: R00.2 Palpitations (principal); R60.0 Localized edema; I10 Essential (primary) hypertension; Z79.82 Long term (current) use of aspirin; Z79.02 Long term (current) use of antithrombotics/antiplatelets; Z79.891 Long term (current) use of opiate analgesic; Z79.899 Other long term (current) drug therapy
CPT/HCPCS: 36415; 71045; 80053; 82553; 83605; 83690; 83880; 84484; 85025; 93005; 96360; Q0162

== ENCOUNTER 2018-02-07 07:12 | Outpatient (CLI) | payer MEDICARE, BC ==
--- NOTE | 2018-02-07 14:20 | NM ---
RADIONUCLIDE GASTRIC EMPTYING SCAN: HISTORY: Upper abdomen pain. Gastroparesis. FINDINGS: Half-life emptying was calculated at 59 minutes. There is good mixing of radiotracer on the planar i mages. Emptying is as follows: 30 minutes 21%; 1 hour 57%, 2 hours 84%, 3 hours 100%. IMPRESSION: Normal radionuclide gastric emptying scan. POS: [facility]
== END 2018-02-07 07:13 | disposition home or self-care (01) ==
LOC: NM 07:12
PROVIDERS: ATTEND Internal Medicine
DX: R10.13 Epigastric pain (principal)
CPT/HCPCS: 78264; A9541

== ENCOUNTER 2018-02-11 09:57 | Outpatient (CLI) | payer MEDICARE, BC ==
--- NOTE | 2018-02-11 13:30 | CT ---
CT OF CERVICAL SPINE WITHOUT CONTRAST: Date: 02/11/18 COMPARISON: None. HISTORY: Neck pain, fracture. TECHNIQUE: Serial axial CT imaging at 2 mm intervals from the skull base through the lung apices without contras t. Coronal and sagittal reformatted imaging obtained. FINDINGS: The nature of the patient's known cervical spine fracture is not provided. No comparison imaging is a vailable. Thus, comparison with prior imaging is essential. There is degenerative change at the articulation of the lateral masses of C1 and the occipital condyl es bilaterally, left greater than right. There is an obliquely oriented nondisplaced fracture involving the dens. There is a fracture of the C 1 ring anteriorly, just right of midline, with osseous resorption. There is also a C1 ring fracture n oted posteriorly demonstrating a midline location. The margins of all of these fractures are somewhat sclerotic, suggesting that they are subacute. Clinical correlation is required. Prominent facet hypertrophy with partial fusion of bilateral facet joints. No osseous cause of signif icant central canal or neural foraminal stenosis. C3-4: There is anterolisthesis measuring 4.0 mm. There is prominent bilateral facet and uncovertebral osteo phyte formation with probable moderate bilateral neural foraminal stenosis. No osseous cause of signi ficant central canal stenosis. C4-5: There is prominent facet and uncovertebral osteophyte formation, left greater than right. There is mo derate left and mild right neural foraminal stenosis suspected. No osseous cause of significant centr al canal stenosis. C5-6: There is retrolisthesis of C5 on C6 measuring approximately 4-5 mm. There is disc space narrowing wit h anterior osteophyte formation. Bilateral facet and uncovertebral osteophyte formation noted with se juan left and mild to moderate right neural foraminal stenosis. There is at least mild central canal stenosis. C6-7: There is bilateral facet and uncovertebral osteophyte formation, right greater than left, with severe right neural foraminal stenosis. There is anterior osteophyte formation noted. C7-T1: There is bilateral facet and uncovertebral osteophyte formation. There is disc space narrowing and de generative end plate change with anterior osteophyte formation. There is a nondisplaced old first rib fracture on the right. There is an incompletely imaged right pl eural effusion. Imaged lung apices appear grossly unremarkable otherwise. IMPRESSION: 1. C1 ring fracture and odontoid fracture as detailed above. Correlation with prior imaging is betty soria. No comparison imaging is available. 2. Multilevel degenerative change seen within the cervical spine. 3. Incompletely imaged right pleural effusion. POS: RAFAEL
== END 2018-02-11 09:58 | disposition home or self-care (01) ==
LOC: TBSIIMAG 09:57
PROVIDERS: ATTEND Neurological Surgery
DX: S12.091A Other nondisplaced fracture of first cervical vertebra, initial encounter for closed fracture (principal); M47.892 Other spondylosis, cervical region; J90 Pleural effusion, not elsewhere classified
CPT/HCPCS: 72125

== ENCOUNTER 2018-03-05 05:53 | Day surgery (SDC) | payer MEDICARE, BC ==
[2018-03-04 10:03] VITALS: BMI 22.9
[2018-03-05] MEDS ORDERED: Levofloxacin 500 mg/D5W 100 ml Premix Bag ONE (08:13)
[2018-03-05 08:24] LABS: #Lymphocytes 0.9 thou/uL (1.20-3.40); #Monocytes 0.6 thou/uL (0.11-0.59); #Neutrophils 4.8 thou/uL (1.40-6.50); %Basophils 0.7 % (0.0-1.0); %Eosinophils 0.7 % (0.0-10.0); %Lymphocytes 14.4 % (21.0-51.0); %Monocytes 8.8 % (0.0-10.0); %Neutrophils 75.4 % (42.0-75.0); Hemoglobin 10.7 g/dL (12.0-16.0); Mean Corpuscular HGB CONC 31.8 g/dL (32.0-36.0); Mean Corpuscular Hemoglobin 29.4 pg (27.0-31.0); Mean Corpuscular Volume 92.4 fL (78.0-98.0); Mean Platelet Volume 6.4 fL (7.4-10.4); Platelet Count 298 thou/uL (130-400); RBC Distribution Width 14.1 % (11.5-14.5); Red Blood Cell (RBC) Count 3.64 mill/uL (4.20-5.40); White Blood Cell (WBC) Count 6.4 thou/uL (4.8-10.8)
[2018-03-05 08:45] LABS: Anion Gap 17 mmol/L (10-20); BUN (Urea Nitrogen) 33 mg/dL (9.8-20.1); Calc. Creatinine Clearance 6 mL/min (70-130); Calcium 8.8 mg/dL (7.8-10.44); Carbon Dioxide 24 mmol/L (23-31); Chloride 94 mmol/L (98-107); Estimated GFR-MDRD 5; Glucose 73 mg/dL (80-115); Potassium 4.1 mmol/L (3.5-5.1); Sodium 131 mmol/L (136-145)
[2018-03-05] MEDS ORDERED: Sodium Chloride 0.9% 20 ML ONE (09:15)
[2018-03-05] MEDS ORDERED: Bupivacaine/Epinephrine 0.25% 30 ML VIAL ONE (09:15)
[2018-03-05] MEDS ORDERED: Heparin 10,000 UNITS/1 ML VIAL ONE (09:15)
[2018-03-05] MEDS ORDERED: Lidocaine 2% 10 ML INJ ONE (09:15)
[2018-03-05] MEDS ORDERED: Fentanyl 100 MCG/2 ML VIAL ONE (09:23)
[2018-03-05] MEDS ORDERED: Propofol 500 MG/50 ML VIAL ONE (09:23)
--- NOTE | 2018-03-05 09:42 | ULT ---
BILATERAL UPPER EXTREMITY VENOUS DOPPLER ULTRASOUND FOR VEIN MAPPING: Date: 03/05/18 HISTORY: End-stage renal disease. FINDINGS: RIGHT UPPER EXTREMITY: The right cephalic vein measures 2.2 mm in the proximal arm, 2.4 mm in the mid arm, 2.2 mm in the dis rambo arm, 3.4 mm in the antecubital fossa, 2.2 mm in the proximal forearm, 2.2 mm in the mid forearm, and 1.9 mm in the distal forearm. The right basilic vein measures 4.7 mm in the proximal arm, 5.5 mm in the mid arm, 5.4 mm in the dist al arm, 3.3 mm in the antecubital fossa, 2.0 mm in the proximal forearm, 2.0 mm in the mid forearm, a nd 2.2 mm in the distal forearm. The right brachial artery measures 2.9 mm, radial artery measures 1.5 mm, and ulnar artery measures 1 .3 mm. LEFT UPPER EXTREMITY: The left cephalic vein measures 1.4 mm in the proximal arm, 1.5 mm in the mid arm, 1.8 mm in the dist al arm, 1.4 mm in the antecubital fossa, 1.3 mm in the proximal forearm, 1.0 mm in the mid forearm, a nd 1.2 mm in the distal forearm. The left basilic vein measures 5.8 mm in the proximal arm, 3.9 mm in the mid arm, 3.5 mm in the dista l arm, 3.0 mm in the antecubital fossa, 1.4 mm in the proximal forearm, 1.1 mm in the mid forearm, an d 1.4 mm in the distal forearm. The left brachial artery measures 3.5 mm, radial artery measures 1.5 mm, and ulnar artery measures 1. 7 mm. POS: RAFAEL
[2018-03-05] MEDS ORDERED: PHENYLEPHRINE-NS 100 MCG/ML 10 ML SYRINGE ONE ×3 (10:11→13:39)
[2018-03-05] MEDS ORDERED: Phenylephrine HCL 10 MG/ML VIAL ONE (10:14)
[2018-03-05] MEDS ORDERED: Clindamycin/D5W 900 mg/50 ml Premix Bag ONE (10:23)
--- NOTE | 2018-03-05 12:09 | RAD ---
SINGLE VIEW OF THE CHEST: Comparison: 12-29-17 History: Hemodialysis catheter placement. FINDINGS: Single view of the chest shows a normal sized cardiomediastinal silhouette. A right IJ dialysis vadim ter is seen with its tip in the superior vena cava. No pneumothorax is seen. The pacemaker is unchang ed in position. There may be a small right pleural effusion. IMPRESSION: 1. Status post dialysis catheter placement without evidence of complication. 2. Small right pleural effusion. POS: RAFAEL
[2018-03-05] MEDS ORDERED: PROPOFOL 200 MG/20 ML VIAL ONE (13:39)
[2018-03-05] MEDS ORDERED: Lidocaine 1% PF 5 ML VIAL ONE (13:39)
--- NOTE | 2018-03-06 13:08 | PDOC.OP ---
Operative Note - Operative Note Operative Note: PROCEDURE: Placement of right internal jugular tunneled hemodialysis catheter with ultrasound and fluoroscopic guidance and removal of peritoneal dialysis catheter. SURGEON: Ludmila Benoit M.D. DATE OF PROCEDURE: 03/06/2018 PREOPERATIVE DIAGNOSIS: End-stage renal failure with poorly functioning peritoneal dialysis catheter after peritonitis POSTOPERATIVE DIAGNOSIS: End-stage renal failure with poorly functioning peritoneal dialysis catheter after peritonitis HISTORY: Patient on chronic peritoneal dialysis. Her external cuff extruded replacements of the distal portion of her catheter had to be delayed due to critical aortic stenosis. She did eventually undergo this and developed peritonitis requiring long hospital admission. She has had problems with her peritoneal dialysis catheter ever since and her state director is recommended converting temporarily to hemodialysis. Since she does not have any hemodialysis access but does not plan to remain on hemodialysis long-term, a tunneled hemodialysis catheter for ongoing dialysis has been requested by the patients state director. PROCEDURE: After informed consent was obtained and appropriate preoperative antibiotics were administered, the patient was taken to the Operating Room, placed in the supine position and monitored anesthesia care was administered. The neck and chest were prepped and draped in a standard sterile fashion and the patient placed in Trendelenburg position. A sterile ultrasound probe was used to identify the patent compressible right IJ vein which was accessed under direct ultrasound guidance. A wire was threaded through the needle and confirmed by ultrasound to be within the patent compressible vessel with the tip in the vena cava by fluoroscopy. Local anesthesia was infused to the skin and subcutaneous tissues of the right neck and chest. An infraclavicular incision was made and a catheter tunneled from the infraclavicular to the right IJ access site. The right IJ was sequentially dilated over the wire following which a dilator and sheath were placed over the wire and the dilator and wire removed leaving the sheath in place. The catheter was tunneled through the sheath which was then split and removed leaving the catheter in place. This was confirmed by fluoroscopy to be in good position in the superior vena cava with no kinking of the course of the catheter. Both ports easily aspirated dark venous nonpulsatile blood and easily flushed without resistance. Heparin was instilled to the quantity specified on the hub, and the hub was secured to the skin with 3-0 nylon sutures. The skin incision at the neck was closed in two layers with 4-0 Monocryl suture and Dermabond dressings were placed. The skin at the exit site was snugged up around the catheter with 4-0 Monocryl suture and Dermabond was placed there as well. Once the Dermabond was dry, a Biopatch and Tegaderm dressing was placed at the exit site. Attention was then turned to removal of the peritoneal dialysis catheter. The patient was prepped and draped in standard sterile fashion and local anesthesia infused at the peritoneal dialysis catheter exit site. Dissection was carried down to the 2 outer cuffs on the extension tubing and these were dissected free. Due to the long extension tubing a counterincision was made over the original placement of the catheter after the skin and subcutaneous tissues were anesthetized. Dissection was carried down to the catheter which was traced to the inner cuff this was dissected free of the rectus sheath and removed. The anterior rectus sheath was closed under direct vision with a 0 Vicryl suture on a UR 6 needle. Hemostasis was verified. The wound was irrigated. The counterincision was closed in layers with Monocryl and Dermabond dressings were placed. The exit site of the PD catheter was packed with iodoform and the skin approximated medially. Gauze and Tegaderm dressing was placed at the exit site. The patient was taken to Recovery in good condition. Estimated blood loss was minimal. There were no complications. There were no specimens.
== END 2018-03-05 13:30 | disposition home or self-care (01) ==
LOC: SDC 05:53
PROVIDERS: ATTEND Surgery
PROC: 0WPG43Z Removal of Infusion Device from Peritoneal Cavity, Percutaneous Endoscopic Approach (ICD-10-PCS; principal; 2018-03-05)
PROC: 02HV33Z Insertion of Infusion Device into Superior Vena Cava, Percutaneous Approach (ICD-10-PCS; 2018-03-05)
PROC: B518YZA Fluoroscopy of Superior Vena Cava using Other Contrast, Guidance (ICD-10-PCS; 2018-03-05)
PROC: B548ZZA Ultrasonography of Superior Vena Cava, Guidance (ICD-10-PCS; 2018-03-05)
DX: T85.611A Breakdown (mechanical) of intraperitoneal dialysis catheter, initial encounter (principal); I12.0 Hypertensive chronic kidney disease with stage 5 chronic kidney disease or end stage renal disease; N18.6 End stage renal disease; J45.909 Unspecified asthma, uncomplicated; M19.90 Unspecified osteoarthritis, unspecified site; F32.9 Major depressive disorder, single episode, unspecified; Z79.82 Long term (current) use of aspirin; Z79.899 Other long term (current) drug therapy; Z91.041 Radiographic dye allergy status; Z88.5 Allergy status to narcotic agent; Z88.0 Allergy status to penicillin; Z91.013 Allergy to seafood
CPT/HCPCS: 36558; 49422; 71045; 80048; 85025; 93005; C1752; C1769; G0365; 36415; 93010; 93970; A4216; J1644; J1956; J2001; J2370; J2704; J3010; J3490

== ENCOUNTER 2018-04-04 07:25 | Day surgery (SDC) | payer MEDICARE, BC ==
[2018-04-03 10:18] VITALS: BMI 20.5
[2018-04-04] MEDS ORDERED: Levofloxacin 500 mg/D5W 100 ml Premix Bag ONE (08:06)
[2018-04-04 08:13] LABS: #Basophils 0.1 thou/uL (0.0-0.2); #Eosinphils 0.2 thou/uL (0.0-0.7); #Lymphocytes 0.9 thou/uL (1.20-3.40); #Monocytes 0.5 thou/uL (0.11-0.59); #Neutrophils 4.4 thou/uL (1.40-6.50); %Basophils 1.9 % (0.0-1.0); %Eosinophils 2.6 % (0.0-10.0); %Lymphocytes 14.2 % (21.0-51.0); %Monocytes 8.9 % (0.0-10.0); %Neutrophils 72.5 % (42.0-75.0); Hemoglobin 9.5 g/dL (12.0-16.0); Mean Corpuscular HGB CONC 32.6 g/dL (32.0-36.0); Mean Corpuscular Hemoglobin 30.9 pg (27.0-31.0); Mean Corpuscular Volume 94.9 fL (78.0-98.0); Mean Platelet Volume 7.1 fL (7.4-10.4); Platelet Count 308 thou/uL (130-400); RBC Distribution Width 14.3 % (11.5-14.5); Red Blood Cell (RBC) Count 3.08 mill/uL (4.20-5.40); White Blood Cell (WBC) Count 6.1 thou/uL (4.8-10.8)
[2018-04-04 08:25] LABS: Anion Gap 16 mmol/L (10-20); BUN (Urea Nitrogen) 20 mg/dL (9.8-20.1); Calc. Creatinine Clearance 9 mL/min (70-130); Calcium 9.5 mg/dL (7.8-10.44); Carbon Dioxide 27 mmol/L (23-31); Chloride 98 mmol/L (98-107); Estimated GFR-MDRD 8; Glucose 82 mg/dL (80-115); Potassium 4.3 mmol/L (3.5-5.1); Sodium 137 mmol/L (136-145)
[2018-04-04] MEDS ORDERED: Clindamycin/D5W 900 mg/50 ml Premix Bag ONE (09:00)
[2018-04-04] MEDS ORDERED: Heparin 10,000 UNITS/1 ML VIAL ONE (09:00)
[2018-04-04] MEDS ORDERED: Bupivacaine/Epinephrine 0.25% 30 ML VIAL ONE (09:00)
[2018-04-04] MEDS ORDERED: Fentanyl 100 MCG/2 ML VIAL ONE (09:07)
[2018-04-04] MEDS ORDERED: Phenylephrine HCL 10 MG/ML VIAL ONE (09:08)
[2018-04-04] MEDS ORDERED: Heparin 10,000 UNITS/ 10 ML VIAL ONE (12:33)
[2018-04-04] MEDS ORDERED: Ondansetron ODT 4 MG TAB ONE (12:55)
[2018-04-04] MEDS ORDERED: Dexamethasone 20 MG/5 ML VIAL ONE (14:55)
[2018-04-04] MEDS ORDERED: Glycopyrrolate 0.2 MG/ML 5 ML SYRINGE ONE (14:55)
[2018-04-04] MEDS ORDERED: PHENYLEPHRINE-NS 100 MCG/ML 10 ML SYRINGE ONE (14:55)
[2018-04-04] MEDS ORDERED: ePHEDrine/0.9% NaCl/PF SYRINGE 50 mg/10 ml ONE (14:55)
[2018-04-04] MEDS ORDERED: Ondansetron HCl/PF 4 MG/2 ML Vial ONE (14:55)
--- NOTE | 2018-04-04 18:35 | PDOC.OP ---
Operative Note - Operative Note Operative Note: PROCEDURE: Laparoscopic PD catheter placement DATE OF PROCEDURE: 04/04/2018 SURGEON: Ludmila Benoit M.D. PREOPERATIVE DIAGNOSES: End-stage renal failure POSTOPERATIVE DIAGNOSIS: End-stage renal failure HISTORY: Patient with end-stage renal failure. She was previously on peritoneal dialysis but this had to be removed due to multiple episodes of peritonitis. She has been on hemodialysis but wants to convert back to peritoneal dialysis. Laparoscopic peritoneal catheter placement was requested by nephrology. PROCEDURE IN DETAIL: After informed consent was obtained and appropriate preoperative antibiotics administered, the patient was taken to the operating room, placed in supine position and general endotracheal anesthesia was administered. The abdomen was prepped and draped in standard sterile fashion and local anesthesia was infused the skin and subcutaneous tissues of level of the umbilicus. A transverse skin incision was made and dissection carried down to the fascia which was incised under direct vision. The peritoneum was elevated and incised under direct vision and the peritoneal cavity entered. A trocar was placed into the abdominal cavity which had no visible adhesions, and carbon dioxide gas insufflated. Opening pressure was less than 5 and carbon dioxide gas easily insufflated to an intra-abdominal pressure 15 which the patient tolerated well. The Veress needle was withdrawn and a Leedey port advanced under direct laparoscopic vision into the abdominal cavity which was carefully examined. There was no evidence of Veress needle or of trocar injury. There were no significant adhesions in the abdominal cavity. Local anesthesia was infused to the skin and subcutaneous tissues at the subcostal location and a trocar was placed at that location. The patient was placed in Trendelenburg and the small intestine easily was drawn up out of the pelvis. The patient was noted to have a deep sulcus adjacent to the rectum suitable for placement of the catheter and the omentum did not seem to reach down to the pelvis. The inferior edge of the posterior rectus sheath was identified and local anesthesia infused the skin and subcutaneous tissues overlying this location. An 8 mm trocar was tunneled superiorly medially and then down through the posterior rectus sheath near its inferior edge and the peritoneal dialysis catheter advanced through the trocar. The catheter was held in place with the inner cuff just inside the rectus sheath as the trocar was withdrawn. The end of the catheter was placed down into the rectal cul-de-sac and saline infused into the abdominal cavity. The catheter was placed to gravity and easily drained the fluid. The right upper quadrant trocar was then withdrawn and a 0 Vicryl suture on a GraNee needle used to close the fascial incision. Carbon dioxide was allowed to desufflate through the umbilical trocar which was then withdrawn and the fascia closed under direct vision with a 0 Vicryl on a UR 6 needle with excellent technical result.. The skin incisions were then closed with 4-0 subcuticular Monocryl sutures and Dermabond placed. The peritoneal dialysis catheter was positioned with the external cuff in the subcutaneous tissues and the skin was snugged up around the peritoneal dialysis catheter exit site with 4-0 subcuticular Monocryl sutures and Dermabond placed there as well. Once the Dermabond was dry a gauze and Tegaderm dressing was placed to the external portion of the peritoneal dialysis catheter and the patient was extubated and taken to the recovery room in good condition. Estimated blood loss was minimal. There were no complications. There were no specimens.
== END 2018-04-04 13:35 | disposition home or self-care (01) ==
LOC: SDC 07:25
PROVIDERS: ATTEND Surgery
PROC: 0WHG43Z Insertion of Infusion Device into Peritoneal Cavity, Percutaneous Endoscopic Approach (ICD-10-PCS; principal; 2018-04-04)
DX: N18.6 End stage renal disease (principal); J45.909 Unspecified asthma, uncomplicated; Z79.82 Long term (current) use of aspirin; Z79.899 Other long term (current) drug therapy; Z88.5 Allergy status to narcotic agent; Z88.0 Allergy status to penicillin; Z91.013 Allergy to seafood
CPT/HCPCS: 80048; 85025; J1100; J1644; J1956; J2370; J2405; J3010; J3490; Q0162

== ENCOUNTER 2019-01-28 14:41 | Outpatient (CLI) | payer MEDICARE, BC ==
[2019-01-28 16:23] LABS: #Basophils 0.1 thou/uL (0.0-0.2); #Eosinphils 0.1 thou/uL (0.0-0.7); #Lymphocytes 1.1 thou/uL (1.20-3.40); #Monocytes 0.6 thou/uL (0.11-0.59); #Neutrophils 5.9 thou/uL (1.40-6.50); %Basophils 1.1 % (0.0-1.0); %Eosinophils 1.5 % (0.0-10.0); %Lymphocytes 13.8 % (21.0-51.0); %Monocytes 7.8 % (0.0-10.0); %Neutrophils 75.9 % (42.0-75.0); Hemoglobin 10.3 g/dL (12.0-16.0); Mean Corpuscular Hemoglobin 30.5 pg (27.0-31.0); Mean Corpuscular Volume 92.4 fL (78.0-98.0); Platelet Count 307 thou/uL (130-400); RBC Distribution Width 11.4 % (11.5-14.5); Red Blood Cell (RBC) Count 3.38 mill/uL (4.20-5.40); White Blood Cell (WBC) Count 7.8 thou/uL (4.8-10.8)
[2019-01-28 16:45] LABS: Anion Gap 16 mmol/L (10-20); BUN (Urea Nitrogen) 39 mg/dL (9.8-20.1); Calc. Creatinine Clearance 0 mL/min (70-130); Calcium 8.7 mg/dL (7.8-10.44); Carbon Dioxide 31 mmol/L (23-31); Chloride 93 mmol/L (98-107); Estimated GFR-MDRD 4; Glucose 86 mg/dL (80-115); Potassium 3.9 mmol/L (3.5-5.1); Sodium 136 mmol/L (136-145)
== END 2019-01-28 14:42 | disposition home or self-care (01) ==
LOC: LABBT 14:41
PROVIDERS: ATTEND Surgery
DX: Z01.812 Encounter for preprocedural laboratory examination (principal); Z49.02 Encounter for fitting and adjustment of peritoneal dialysis catheter
CPT/HCPCS: 80048; 85025

== ENCOUNTER 2019-01-29 06:13 | Day surgery (SDC) | payer MEDICARE, BC ==
[2019-01-28 15:13] VITALS: BMI 20.7
[2019-01-29] MEDS ORDERED: Levofloxacin 500 mg/D5W 100 ml Premix Bag ONE (07:02)
[2019-01-29] MEDS ORDERED: Bupivacaine/Epinephrine 0.25% 30 ML VIAL ONE (08:17)
[2019-01-29] MEDS ORDERED: Heparin 10,000 UNITS/1 ML VIAL ONE (08:17)
[2019-01-29] MEDS ORDERED: Fentanyl 100 MCG/2 ML VIAL ONE (08:50)
[2019-01-29] MEDS ORDERED: Ondansetron PF 4 MG/2 ML Vial ONE (16:30)
[2019-01-29] MEDS ORDERED: Glycopyrrolate 0.2 MG/ML 5 ML SYRINGE ONE (16:30)
[2019-01-29] MEDS ORDERED: Lidocaine 1% PF 5 ML VIAL ONE (16:30)
[2019-01-29] MEDS ORDERED: PHENYLEPHRINE-NS 100 MCG/ML 10 ML SYRINGE ONE (16:30)
[2019-01-29] MEDS ORDERED: Dexamethasone 20 MG/5 ML VIAL ONE (16:30)
[2019-01-29] MEDS ORDERED: Rocuronium Bromide 10 MG/ML (10ML VIAL) ONE (16:30)
[2019-01-29] MEDS ORDERED: PROPOFOL 200 MG/20 ML VIAL ONE (16:30)
[2019-01-29] MEDS ORDERED: ePHEDrine 50 MG/ML VIAL ONE (16:30)
--- NOTE | 2019-01-30 13:58 | OP ---
DATE OF PROCEDURE: 01/29/2019 PROCEDURE PERFORMED: Revision of peritoneal dialysis catheter (external segment). DIAGNOSIS: Malfunctioning peritoneal dialysis catheter with extruding external cuff. HISTORY: Ms. Espino is a 69-year-old woman, who was on peritoneal dialysis. The external cuff of her PD catheter was noted by her nurse to be visible at the skin. There has not been any drainage or any infection or peritonitis, but it is felt that the cuff is in the process of extruding, which would put her at risk for future infection. The revision of the external segment was recommended. DESCRIPTION OF PROCEDURE: After informed consent was obtained and appropriate preoperative antibiotics were administered, the patient was taken to the operating room, she was placed in supine position, and anesthesia was administered. She was prepped and draped in standard sterile fashion and local anesthesia was infused through skin and subcutaneous tissues overlying the internal portion of the peritoneal dialysis catheter. Dissection was carried down to the peritoneal dialysis catheter, which was clamped and ligated between clamps. Additional local anesthesia was infused superior and lateral to this and a skin incision was made. The external portion of a new peritoneal dialysis catheter was tunneled from the internal portion of the existing peritoneal dialysis catheter to the new skin incision positioning the external cuff 1 to 2 cm from the skin exit site. The new peritoneal dialysis catheter was trimmed to length and attached to the internal portion with a titanium connector. The external portion of the old peritoneal dialysis catheter was ligated and allowed to retract into the subcutaneous tissues. The subcutaneous tract was ligated excluding this from the new wound, which was irrigated. The subcutaneous tissues were then reapproximated with 3-0 Monocryl suture and the skin overlying the old peritoneal dialysis catheter tract was closed with 4-0 subcuticular Monocryl suture and Dermabond dressing. The skin around the exit site of the new peritoneal dialysis catheter was snugged up with a 4-0 Monocryl suture and dressed with Dermabond. The catheter was easily flushed and easily drained. The catheter was then flushed with heparinized saline, clamped and capped, and dressed with gauze and Tegaderm. Attention was then turned to the old site. Local anesthesia was infused in the external cuff, dissected free of the subcutaneous tissues. The external portion was resected and discarded. The old site was dressed with Iodoform and gauze, and the patient was taken to Recovery in good condition. ESTIMATED BLOOD LOSS: Minimal. COMPLICATIONS: There were no complications. SPECIMENS: There were no specimens. The external portion of the catheter was examined and appeared normal and was discarded. Job ID: [id number]
== END 2019-01-29 13:30 | disposition home or self-care (01) ==
LOC: SDC 06:13
PROVIDERS: ATTEND Surgery
PROC: 0J2VXYZ Change Other Device in Upper Extremity Subcutaneous Tissue and Fascia, External Approach (ICD-10-PCS; principal; 2019-01-29)
DX: T85.611A Breakdown (mechanical) of intraperitoneal dialysis catheter, initial encounter (principal); I35.0 Nonrheumatic aortic (valve) stenosis; J45.909 Unspecified asthma, uncomplicated; I10 Essential (primary) hypertension; M19.90 Unspecified osteoarthritis, unspecified site; F32.9 Major depressive disorder, single episode, unspecified; Z88.0 Allergy status to penicillin; Z88.5 Allergy status to narcotic agent; Z91.013 Allergy to seafood; Z88.8 Allergy status to other drugs, medicaments and biological substances; Z79.82 Long term (current) use of aspirin; Z79.899 Other long term (current) drug therapy
CPT/HCPCS: J1100; J1644; J1956; J2001; J2405; J2704; J3010; J3490

== ENCOUNTER 2019-07-02 16:50 | Emergency (ER) | payer MEDICARE, BC ==
[2019-07-02 17:58] LABS: #Basophils 0.1 thou/uL (0.0-0.2); #Lymphocytes 1.1 thou/uL (1.20-3.40); #Monocytes 0.2 thou/uL (0.11-0.59); #Neutrophils 5.9 thou/uL (1.40-6.50); %Basophils 0.7 % (0.0-1.0); %Eosinophils 0.6 % (0.0-10.0); %Lymphocytes 14.4 % (21.0-51.0); %Monocytes 3.3 % (0.0-10.0); %Neutrophils 80.9 % (42.0-75.0); Mean Corpuscular HGB CONC 31.5 g/dL (32.0-36.0); Mean Corpuscular Hemoglobin 29.6 pg (27.0-31.0); Mean Corpuscular Volume 93.8 fL (78.0-98.0); Mean Platelet Volume 7.4 fL (7.4-10.4); Platelet Count 298 thou/uL (130-400); RBC Distribution Width 12.1 % (11.5-14.5); Red Blood Cell (RBC) Count 4.06 mill/uL (4.20-5.40); White Blood Cell (WBC) Count 7.3 thou/uL (4.8-10.8)
[2019-07-02 18:24] LABS: ALT (SGPT) 16 U/L (8-55); AST (SGOT) 15 U/L (5-34); Albumin 3.1 g/dL (3.4-4.8); Alkaline Phosphatase 92 U/L (40-110); Anion Gap 15 mmol/L (10-20); BUN (Urea Nitrogen) 26 mg/dL (9.8-20.1); Bilirubin, Total 0.3 mg/dL (0.2-1.2); Calc. Creatinine Clearance 0 mL/min (70-130); Calcium 7.7 mg/dL (7.8-10.44); Carbon Dioxide 29 mmol/L (23-31); Chloride 98 mmol/L (98-107); Estimated GFR-MDRD 5; Globulin 3.1 g/dL (2.4-3.5); Glucose 141 mg/dL (83-110); Potassium 3.1 mmol/L (3.5-5.1); Protein, Total 6.2 g/dL (6.0-8.3); Sodium 139 mmol/L (136-145)
== END 2019-07-02 19:16 | disposition home or self-care (01) ==
LOC: ERS 16:50
DX: F41.9 Anxiety disorder, unspecified (principal); I10 Essential (primary) hypertension; Z79.82 Long term (current) use of aspirin; Z79.899 Other long term (current) drug therapy
CPT/HCPCS: 36415; 80053; 85025; 99283